=== PATIENT | female | born 1945 | race African-American/Black ===

== ENCOUNTER 2016-03-04 13:44 | Outpatient (CLI) | payer OTHER ==
[2015-11-30 06:05] VITALS: BP 116/50
== END 2016-03-04 13:45 ==
LOC: LAB 13:44
PROVIDERS: ATTEND Family Medicine
DX: E11.9 Type 2 diabetes mellitus without complications (principal)
CPT/HCPCS: 36415; 83036

== ENCOUNTER 2016-04-05 21:31 | Emergency (ER) | payer OTHER ==
--- NOTE | 2016-04-05 22:28 | ED Physician Documentation ---
General Adult - HISTORIAN Historian: patient - HPI Stated Complaint: dizziness, nausea Chief Complaint: General Adult Onset: days ago (1) Timing: still present Severity: moderate Further Comments: yes (Pt is a 71 yo female with c/o dizziness. Pt has hx vertigo and also afib. Pt has had nausea and states that sx occur with head turning. No chest pain, no sob, no abd pain.) - ROS CONST: weakness, other (dizziness) EYES/ENT: none CVS/RESP: none GI/: vomiting, nausea MS/SKIN/LYMPH: none - PAST HX Past History: asthma, A-Fib, CHF, hypertension, other (HLD) Surgeries/Procedures: BTL Allergies/Adverse Reactions: Allergies Allergy/AdvReac Type Severity Reaction Status Date / Time No Known Drug Allergies Allergy Verified 11/29/15 22:09 Home Medications: Ambulatory Orders Medication Instructions Recorded Albuterol Sulfate [Proair HFA] 2 inh IH Q4H PRN #1 hfa.aer.ad 03/26/14 Albuterol Sulfate [Ventolin HFN] 2.5 mg NEB Q2H PRN #25 ampul.neb 11/30/15 Metoprolol Tartrate [Lopressor] 25 mg PO BID #90 u2 11/30/15 Furosemide [Furosemide] 40 mg PO D 04/05/16 Rivaroxaban [Xarelto] 20 mg PO D 04/05/16 - SOCIAL HX Smoking History: non-smoker - FAMILY HX Family History: Yes - VITAL SIGNS Vital Signs: Vital Signs Temp Pulse Resp BP Pulse Ox 116/50 11/30/15 12:25 - REVIEWED ASSESSMENTS Nursing Assessment Reviewed: Yes Vitals Reviewed: Yes Progress - Progress Progress: NS 1 L IVF vomiting x 1 in ER Zofran 4 mg IV Meclizine 25 mg po sx improved Pt has elevated LFT's and amylase c/w pancreatitis but has no complaint of abd pain. Lipase pending. d/w pcp Dr. Crawford. He will see pt in office in am. Rx Meclizine 25 mg po q 8 h prn # 15, plus 2 tablet-->home. - EKG/XRAY/CT EKG: NSR (HR=70; LAD.) XRAY: chest (Obesity and cardiomegaly without change since November 29, 2015) ED Results Lab/Radiology - Orders Orders: ED Orders Category Date Time Status Orthostatics 1T Care 04/05/16 22:[address] Saline Lock/IV NOW Care 04/05/16 22:18 Active CHEST 1 VIEW [RAD] Stat Exams 04/05/16 22:18 Ordered CBC/PLATELET/DIFF Routine Lab 04/05/16 22:18 Ordered CMP Routine Lab 04/05/16 22:18 Ordered CREATINE KINASE Routine Lab 04/05/16 22:18 Ordered NT-proBNP Stat Lab 04/05/16 Ordered TROPONIN I (cTnI) Stat Lab 04/05/16 Ordered 0.9 % Sodium Chloride [Normal Saline] 1,000 ml Med 04/05/16 22:18 Active IV Q2H Chem Sticks Med 04/05/16 22:21 Discontinued 1 each CHEMQ STA EKG WITH COMPARISON Stat Ther 04/05/16 22:18 Ordered General Adult Physical Exam - PHYSICAL EXAM GENERAL APPEARANCE: mild distress EENT: eye inspection normal, ENT inspection normal, pharynx normal NECK: normal inspection, supple RESPIRATORY: no resp distress, chest non-tender, breath sounds normal CVS: reg rate & rhythm, heart sounds normal ABDOMEN: soft, no organomegaly, normal bowel sounds BACK: normal inspection, no CVA tenderness SKIN: warm/dry, normal color EXTREMITIES: non-tender, normal range of motion NEURO: oriented X3, motor nml, sensation nml Discharge Clincal Impression: Dizziness, Elevated Amylase and Liver Enzymes Referrals: Jose Antonio Crawford MD [Primary Care Provider] - 04/06/16 Home Medications: Ambulatory Orders Albuterol Sulfate [Proair HFA] 2 inh IH Q4H PRN #1 hfa.aer.ad 03/26/14 Albuterol Sulfate [Ventolin HFN] 2.5 mg NEB Q2H PRN #25 ampul.neb 11/30/15 Metoprolol Tartrate [Lopressor] 25 mg PO BID #90 u2 11/30/15 Furosemide [Furosemide] 40 mg PO D 04/05/16 Rivaroxaban [Xarelto] 20 mg PO D 04/05/16 Condition: Stable Disposition: 01 HOME, SELF-CARE Decision to Admit: NO Decision Time: 00:23
[2016-04-05] MEDS: 0.9 % SODIUM CHLORIDE 1,000 ML IV ONE (23:02)
[2016-04-05] MEDS ORDERED: ONDANSETRON HCL/PF 4 MG/ 2ML VIAL ONE (23:10)
[2016-04-05] MEDS: ONDANSETRON HCL/PF 4 MG/ 2ML VIAL IVP ONE (23:15)
[2016-04-05 23:18] LABS: BASOPHILS % 0.3 (0.0-1.5); EOSINOPHILS % 2.3 % (0.0-6.8); LYMPHOCYTES # 1.2 # k/uL (0.6-4.0); MEAN CORPUSCULAR HEMOGLOBIN 28.7 pg (28.0-34.0); MONOCYTES # 0.3 # k/uL (0.0-0.9); MONOCYTES % 7.5 % (0.0-11.0); NEUTROPHILS # 2.6 # k/uL (1.4-7.7)
[2016-04-05] MEDS: MECLIZINE HCL 25 MG TABLET PO ONE (23:42)
[2016-04-06] MEDS: MECLIZINE HCL 25 MG TABLET PO ONE ×2 (00:29)
[2016-04-06 03:05] VITALS: BP 100/69
--- NOTE | 2016-04-06 05:49 | Diagnostic Imaging Report ---
Report Submission Date: Apr 05, 2016 10:43:31 PM TURBINE INSPECTOR Patient ~ Study Name: RAUDEL FREED ~ Date: Apr 05, 2016 10:28:22 PM TURBINE INSPECTOR ~ Modality Type: CR Gender: F ~ Description: CHEST : 46 ~ Institution: [facility] Physician: ANA SHAIKH ~ ~ ~ ~ Portable chest History: Dizziness and nausea Findings: Cardiomegaly, obesity, and right hemidiaphragm elevation are observed. The lung bases are incompletely evaluated due to obesity and portable technique. No pleural effusions are observed. Impression: Obesity and cardiomegaly without change since November 29, 2015. ~ Electronically signed on Apr 05, 2016 10:43:31 PM TURBINE INSPECTOR by: Bill GONZALEZ
[2016-04-06 18:11] LABS: LIPASE 150 U/L (13-60)
== END 2016-04-06 00:37 | disposition home or self-care (01) ==
LOC: ED 21:31
DX: R42 Dizziness and giddiness (principal)
CPT/HCPCS: 71010; 80053; 82150; 82550; 83690; 83880; 84484; 85025; 87400; 93005; J2405; J7030; 96374; 99283; 99284; S1016

== ENCOUNTER 2016-04-06 10:44 | Outpatient (CLI) | payer OTHER ==
[2016-04-06 03:05] VITALS: BP 100/69
--- NOTE | 2016-04-06 15:37 | Diagnostic Imaging Report ---
JP CORDERO [facility] [address] [facility] [address] [place] [address]. [id number] Report Submission Date: Apr 06, 2016 3:05:27 PM FLIGHT STEWARD Patient Study Name: RAUDEL FREED Date: Apr 06, 2016 2:35:03 PM FLIGHT STEWARD Modality Type: CT\SR Gender: F Description: CT ABD & PELVIS W/ CON : 46 Institution: [facility] Physician: JP CORDERO CT of the abdomen and pelvis with contrast CLINICAL HISTORY: Abnormal laboratory tests. Elevated amylase and transaminase. Contrast administered: 90 mL of Visipaque. TECHNIQUE: CT examination abdomen and pelvis is performed with oral and intravenous administration of contrast. Sagittal and coronal reconstructions are performed by the technologist. FINDINGS: There is minimal dependent atelectasis in the lung bases. Lung bases are otherwise clear. The liver is diffusely hypodense consistent with hepatic steatosis. There is no focal abnormality in the liver or spleen. Gallbladder is contracted, but otherwise unremarkable. There is no pancreatic or adrenal abnormality. The kidneys demonstrate symmetric enhancement with small left renal cysts. Vascular calcification is present in the abdominal aorta with extension into the major branches. There is no evident aneurysm. There is no retroperitoneal mass or significant adenopathy. The appendix is visualized and is within normal limits. Structures related to the gastrointestinal tract are unremarkable. Uterus is mildly prominent and inhomogeneous likely related to fibroids. There is no free fluid in the pelvis or abdomen. Spondylitic changes are evident in the lumbar vertebrae with degenerative anterolisthesis at L4-5 measuring 7 mm. There is resultant spinal stenosis at the L4-5 level and bilateral neural foraminal stenosis. IMPRESSION: Hepatic steatosis. Bibasilar atelectasis. Lumbar spondylosis with degenerative anterolisthesis at L4-5 and resulting spinal stenosis. Vascular calcification. Small left renal cysts. Inhomogeneous uterus suggesting fibroids. Negative appendix. Electronically signed on Apr 06, 2016 3:05:27 PM FLIGHT STEWARD by: Kaushik GONZALEZ
== END 2016-04-06 10:45 ==
LOC: CARD 10:44
PROVIDERS: ATTEND Internal Medicine Cardiovascular Disease
DX: I48.91 Unspecified atrial fibrillation (principal)
CPT/HCPCS: 74177; A9698; G0463; Q9967

== ENCOUNTER 2016-05-04 14:41 | Outpatient (CLI) | payer OTHER | END 2016-05-04 14:46 | LOC: CARD 14:41 | PROVIDERS: ATTEND Internal Medicine Cardiovascular Disease | DX: I48.91 Unspecified atrial fibrillation (principal) | CPT/HCPCS: G0463 ==

== ENCOUNTER 2016-07-13 10:57 | Outpatient (CLI) | payer OTHER | END 2016-07-13 11:00 | LOC: CARD 10:57 | PROVIDERS: ATTEND Internal Medicine Cardiovascular Disease | DX: I50.9 Heart failure, unspecified (principal) | CPT/HCPCS: G0463 ==

== ENCOUNTER 2016-08-06 15:11 | Outpatient (CLI) | payer OTHER ==
[2016-08-06 15:53] LABS: eGFR (African) > 60; eGFR (Non-African) 40
== END 2016-08-06 15:12 ==
LOC: LAB 15:11
PROVIDERS: ATTEND Family Medicine
DX: E11.9 Type 2 diabetes mellitus without complications (principal); I10 Essential (primary) hypertension
CPT/HCPCS: 36415; 80053; 80061

== ENCOUNTER 2016-10-01 16:11 | Outpatient (CLI) | payer OTHER ==
[2016-10-01 16:21] LABS: BASOPHILS % 0.7 (0.0-1.5); EOSINOPHILS % 6.2 % (0.0-6.8); MEAN CORPUSCULAR HEMOGLOBIN 27.2 pg (28.0-34.0); MEAN CORPUSCULAR VOLUME 90.1 fl (80.0-100.0); MONOCYTES % 6.4 % (0.0-11.0); NEUTROPHILS # 4.5 # k/uL (1.4-7.7)
== END 2016-10-01 16:12 ==
LOC: LAB 16:11
PROVIDERS: ATTEND Family Medicine
DX: E61.1 Iron deficiency (principal)
CPT/HCPCS: 36415; 83540; 85025

== ENCOUNTER 2016-11-15 08:55 | Emergency (ER) | payer OTHER ==
[2016-11-15] MEDS ORDERED: Lidocaine 1% 5ml(IM or SUTURE)(PAIN CLINIC) ONE (09:15)
[2016-11-15] MEDS: DIPH,PERTUSS(ACELL),TET VAC/PF 0.5 ML DISP.SYRIN IM ONE (09:43)
[2016-11-15] MEDS: Lidocaine 1% 5ml(IM or SUTURE)(PAIN CLINIC) IJ ONE (09:43)
--- NOTE | 2016-11-15 10:01 | ED Physician Documentation ---
General Adult - HISTORIAN Historian: patient - HPI Stated Complaint: laceration, L hand Chief Complaint: General Adult Onset: days ago (1) Further Comments: yes (Pt is a 71 yo female with a laceration to the web space between the L thumb and index, which she sustained last night when using a kitchen knife. Pt is on Xarelto and laceration, though small, has not stopped bleeding. Tetanus status unknown.) - ROS CONST: no problems EYES/ENT: none CVS/RESP: none GI/: none MS/SKIN/LYMPH: other (laceration L hand) - PAST HX Past History: other (Afib, CHF, HTN, ) Surgeries/Procedures: BTL, other (breast biopsy) Allergies/Adverse Reactions: Allergies Allergy/AdvReac Type Severity Reaction Status Date / Time No Known Drug Allergies Allergy Verified 11/15/16 09:15 Home Medications: Ambulatory Orders Medication Instructions Recorded Metoprolol Tartrate [Lopressor] 25 mg PO BID #90 u2 11/30/15 Furosemide [Furosemide] 40 mg PO D 04/05/16 - SOCIAL HX Smoking History: non-smoker - FAMILY HX Family History: No - VITAL SIGNS Vital Signs: Vital Signs Temp Pulse Resp BP Pulse Ox 98.4 F 54 L 18 136/58 96 11/15/16 09:00 11/15/16 09:00 11/15/16 09:00 11/15/16 09:00 11/15/16 09:00 - REVIEWED ASSESSMENTS Nursing Assessment Reviewed: Yes Vitals Reviewed: Yes Procedures Wound Location: upper extremity (L hand) Wound Length: 2 cm Wound's Depth, Shape: superficial, flap Wound Explored: clean Betadine Prep?: No (Preston used) Anesthesia: 1% Lidocaine Volume of Anesthetic: 3 cc Wound Debrided: minimal Wound Repaired With: sutures Suture Size/Type: 4:0, nylon Number of Sutures: 3 Layer Closure?: No Sterile Dressing Applied?: Yes Progress - Progress Progress: Tdap 0.5 ml in ER. Suture removal in 5 to 7 days. ED Results Lab/Radiology - Orders Orders: ED Orders Category Date Time Status Diph,Pertuss(Acell),Tet Vac/Pf [Adacel] Med 11/15/16 09:26 Discontinued 0.5 ml IM .ONCE ONE Lidocaine 1% 5ml(IM or SUTURE) [Xylocaine] Med 11/15/16 09:15 Discontinued 50 mg .ROUTE .STK-MED ONE Lidocaine 1% 5ml(IM or SUTURE) [Xylocaine] Med 11/15/16 09:26 Discontinued 50 mg IJ NOW ONE General Adult Physical Exam - PHYSICAL EXAM GENERAL APPEARANCE: no distress NECK: normal inspection, supple RESPIRATORY: no resp distress BACK: normal inspection SKIN: other (superficial laceration L hand in web space between thumb and index , flap, oozing blood.) EXTREMITIES: other (superficial laceration L hand in web space between thumb and index, flap, oozing blood.) NEURO: oriented X3, motor nml, sensation nml Discharge Clincal Impression: laceration, L hand Referrals: Jose Antonio Crawford MD [Primary Care Provider] - Condition: Good Disposition: 01 HOME, SELF-CARE Decision to Admit: NO Decision Time: 10:02
[2016-11-15 10:15] VITALS: BP 116/50
== END 2016-11-15 10:13 | disposition home or self-care (01) ==
LOC: ED 08:55
DX: S61.412A Laceration without foreign body of left hand, initial encounter (principal); X58.XXXA Exposure to other specified factors, initial encounter; Y93.9 Activity, unspecified; Y99.9 Unspecified external cause status
CPT/HCPCS: 12001; 90471; 90715; 99283

== ENCOUNTER 2016-11-16 13:50 | Outpatient (CLI) | payer OTHER ==
[2016-11-15 10:15] VITALS: BP 116/50
[2016-11-16 16:35] LABS: eGFR (African) > 60; eGFR (Non-African) > 60
== END 2016-11-16 13:52 ==
LOC: CARD 13:50
PROVIDERS: ATTEND Internal Medicine Cardiovascular Disease
DX: I48.91 Unspecified atrial fibrillation (principal); I50.9 Heart failure, unspecified; I10 Essential (primary) hypertension; E78.5 Hyperlipidemia, unspecified; G47.30 Sleep apnea, unspecified
CPT/HCPCS: 36415; 80048; G0463

== ENCOUNTER 2017-01-11 12:56 | Outpatient (CLI) | payer OTHER ==
[2017-01-11 14:52] LABS: eGFR (African) > 60; eGFR (Non-African) 40
== END 2017-01-11 14:58 ==
LOC: CARD 12:56
PROVIDERS: ATTEND Internal Medicine Cardiovascular Disease
DX: E78.5 Hyperlipidemia, unspecified (principal); E11.9 Type 2 diabetes mellitus without complications; E66.9 Obesity, unspecified; G47.30 Sleep apnea, unspecified; Z86.79 Personal history of other diseases of the circulatory system
CPT/HCPCS: 36415; 80048; 80061; G0463

== ENCOUNTER 2017-03-17 03:33 | Emergency (ER) | payer OTHER ==
[2017-03-17] MEDS ORDERED: OXYMETAZOLINE HCL 0.05% NASAL SPRAY NS ONE ×2 (03:52)
--- NOTE | 2017-03-17 04:51 | ED Physician Documentation ---
Epistaxis - HISTORIAN Historian: patient - HPI Stated Complaint: Nose bleed Chief Complaint: Epistaxis Location: right Severity: moderate Further Comments: yes (72 year old female patient presents with complaint of nose bleed. Patient states she woke up covered in blood and coughed up a "chunk " of blood. Patient on xarelto) - ROS MS/SKIN/LYMPH: denies: excessive bruising, bleeding from gums, bleeding from GI , bleeding from , swollen glands, joint pain, other EYES/ENT: none GI/: denies: black stool, problems urinating, other CVS/RESP: denies: chest pain, difficulty breathing, other NEURO/PSYCH: denies: dizziness, anxiety, depression, other - PAST HX Past History: previous nosebleeds Other History: hypertension Allergies/Adverse Reactions: Allergies Allergy/AdvReac Type Severity Reaction Status Date / Time No Known Drug Allergies Allergy Verified 03/17/17 03:49 Home Medications: Ambulatory Orders Medication Instructions Recorded Metoprolol Tartrate [Lopressor] 25 mg PO BID #90 u2 11/30/15 - SOCIAL HX Smoking History: non-smoker - FAMILY HX Family History: No - VITAL SIGNS Vital Signs: Vital Signs Temp Pulse Resp BP Pulse Ox 97.9 F 64 18 133/65 96 03/17/17 03:35 03/17/17 03:35 03/17/17 03:35 03/17/17 03:35 03/17/17 03:35 - REVIEWED ASSESSMENTS Nursing Assessment Reviewed: Yes Vitals Reviewed: Yes Progress - Progress Progress: 2 sprays of afrin to right nare. Pressure held. WIll monitor in ER. Patient does not want rhino rocket. No further bleeding while in ER, discharged home. ED Results Lab/Radiology - Orders Orders: ED Orders Category Date Time Status Oxymetazoline HCl [Afrin 0.05%] Med 03/17/17 03:52 Discontinued 2 spray NS NOW ONE Oxymetazoline HCl [Afrin 0.05%] Med 03/17/17 03:52 Discontinued 30 spray NS .STK-MED ONE Epistaxis Physical Exam - EXAM General Appearance: mild distress Nose: active bleeding (R) (mild) Eyes/Ears: eyes nml inspection, PERRL Mouth: lips nml, gums nml, pharynx nml Neuro/Psych: oriented x3, neuro intact, mood/affect nml, CN's nml as tested Respiratory: no resp distress, chest non-tender CVS: reg rate & rhythm Abdomen: non-tender, no organomegaly Skin: nml color, no skin rash Discharge Clincal Impression: Epistaxis Referrals: Jose Antonio Crawford MD [Primary Care Provider] - 2 Days Condition: Stable Disposition: 01 HOME, SELF-CARE Decision to Admit: NO Decision Time: 04:50
[2017-03-17 05:08] VITALS: BP 135/72
== END 2017-03-17 05:00 | disposition home or self-care (01) ==
LOC: ED 03:33
DX: R04.0 Epistaxis (principal)
CPT/HCPCS: 99282

== ENCOUNTER 2017-03-17 13:16 | Observation (INO) | payer OTHER ==
--- NOTE | 2017-03-17 14:08 | ED Physician Documentation ---
General Adult - HISTORIAN Historian: patient - HPI Stated Complaint: weakness Chief Complaint: General Adult Onset: hours Timing: still present Severity: moderate Further Comments: yes (Pt is a 72 yo female with weakness. Pt was seen here about 10 hrs ago for nosebleed. Pt says that she is very weak. She says that she lost quite a bit of blood with her nosebleed this am and coughed up a large clot. Pt is not a good historian and insists that she just feels very weak. She denies specific sx, sob, chest pain, nausa.) - ROS CONST: weakness, other (malaise) EYES/ENT: none GI/: none MS/SKIN/LYMPH: none - PAST HX Past History: hypertension, other (Asthma, OA) Surgeries/Procedures: BTL Allergies/Adverse Reactions: Allergies Allergy/AdvReac Type Severity Reaction Status Date / Time No Known Drug Allergies Allergy Verified 03/17/17 03:49 Home Medications: Ambulatory Orders Medication Instructions Recorded Metoprolol Tartrate [Lopressor] 25 mg PO BID #90 u2 11/30/15 - SOCIAL HX Smoking History: non-smoker - FAMILY HX Family History: No - VITAL SIGNS Vital Signs: Vital Signs Temp Pulse Resp BP Pulse Ox 135/72 03/17/17 05:00 - REVIEWED ASSESSMENTS Nursing Assessment Reviewed: Yes Vitals Reviewed: Yes Progress - Progress Progress: CXR: Generalized parenchymal haziness with obscuration of the left lung base - component of this may be due to body habitus though infiltrate/effusion cannot be excluded. CT chest w/o contrast: Bibasilar lung base parenchymal infiltrates, right greater than left. Posterior pleural thickening. Generalized increased parenchymal interstitial prominence. Granuloma right middle lung. Anterior mediastinum and julio cesar are without gross mass or pathologic adenopathy: though sensitivity is reduced on a noncontrast exam. Calcified hilar granuloma. Thoracic aorta demonstrates peripheral atherosclerotic disease. No aneurysm. Cardiac silhouette enlarged. No pericardial effusion. Coronary vascular calcifications. Lower neck structures and upper abdominal organs are without gross abnormality. Hiatal hernia. Osseous structures demonstrate degenerative spurring. Atherosclerotic disease involving the abdominal aorta - specifically of the renal artery origins. Impression: Bibasilar infiltrates associated with generalized increase in interstitial prominence suggesting congestive edema. Levaquin 500 mg IV in ER Lasix 20 mg IV in ER Admit to Dr. Francisco. - EKG/XRAY/CT EKG: NSR (HR=62; PAC's; low voltage.) General Adult Physical Exam - PHYSICAL EXAM GENERAL APPEARANCE: moderate distress EENT: pharynx normal NECK: normal inspection, supple RESPIRATORY: rales CVS: reg rate & rhythm, heart sounds normal ABDOMEN: soft, no organomegaly, normal bowel sounds BACK: normal inspection, no CVA tenderness SKIN: warm/dry, normal color EXTREMITIES: non-tender, normal range of motion, edema (trace) NEURO: oriented X3, motor nml, sensation nml Discharge Clincal Impression: bibasilar infiltrates, CHF Referrals: Jose Antonio Crawford MD [Primary Care Provider] - Condition: Stable Disposition: 09 ADMITTED INPATIENT Decision to Admit: [id number] Decision Time: 19:24
[2017-03-17 14:38] LABS: BASOPHILS % 0.4 (0.0-1.5); EOSINOPHILS % 3.2 % (0.0-6.8); MEAN CORPUSCULAR HEMOGLOBIN 29.8 pg (28.0-34.0); MEAN CORPUSCULAR VOLUME 96.5 fl (80.0-100.0); MONOCYTES % 7.2 % (0.0-11.0); NEUTROPHILS # 3.3 # k/uL (1.4-7.7)
[2017-03-17 14:46] LABS: eGFR (African) > 60; eGFR (Non-African) > 60
--- NOTE | 2017-03-17 14:58 | Diagnostic Imaging Report ---
HAWA PEREZ [facility] [address] [facility] [address] [place] [address]. [id number] Report Submission Date: Mar 17, 2017 2:52:22 PM SITE CONTROLLER Patient Study Name: RAUDEL FREED Date: Mar 17, 2017 2:38:16 PM SITE CONTROLLER Modality Type: CR Gender: F Description: CHEST : 46 Institution: [facility] Physician: HAWA PEREZ Examination: Portable chest History: Evaluate lungs Comparison exam: 05 April 2016 Findings: Single view of the chest demonstrates a prominent cardiac and mediastinal silhouette. Lung cisneros demonstrate generalized haziness. Retrocardiac region not well visualized. Osseous structures are appropriate for age. Impression: Generalized parenchymal haziness with obscuration of the left lung base - component of this may be due to body habitus though infiltrate/effusion cannot be excluded. Electronically signed on Mar 17, 2017 2:52:22 PM SITE CONTROLLER by: Galileo GONZALEZ
[2017-03-17 15:56] LABS: APPEARANCE,URINE Clear (CLEAR); COLOR,URINE Yellow (YELLOW); OCCULT BLOOD,URINE Negative (NEGATIVE); PH URINE 5.5 (5.0 - 8.0); UROBILINOGEN URINE 0.2 Eu (0.2-1.0)
[2017-03-17] MEDS ORDERED: 0.9 % SODIUM CHLORIDE 1,000 ML IV ONE (16:23)
[2017-03-17] MEDS ORDERED: DIAZEPAM 5 MG TABLET PO ONE (17:00)
--- NOTE | 2017-03-17 18:36 | Diagnostic Imaging Report ---
HAWA PEREZ~ [facility] [address] [facility] [address] [place], [place]. [address] ~ ~ ~ ~ Report Submission Date: Mar 17, 2017 6:13:10 PM DRAG DOWN Patient ~ Study Name: RAUDEL FREED ~ Date: Mar 17, 2017 5:37:37 PM DRAG DOWN ~ Modality Type: CT\SR Gender: F ~ Description: CT CHEST W/O CONTRAST : 46 ~ Institution: [facility] Physician: HAWA PEREZ ~ ~ ~ Examination: CT chest History: Lung infiltrate Comparison exams: Plain film chest dated 17 March 2017 Technique: CT chest without contrast protocol~~ Findings: Bibasilar lung base parenchymal infiltrates, right greater than left. Posterior pleural thickening. ~Generalized increased parenchymal interstitial prominence. Granuloma right middle lung. ~Anterior mediastinum and julio cesar are without gross mass or pathologic adenopathy: though sensitivity is reduced on a noncontrast exam. Calcified hilar granuloma. Thoracic aorta demonstrates peripheral atherosclerotic disease. No aneurysm. Cardiac silhouette enlarged. No pericardial effusion. Coronary vascular calcifications. Lower neck structures and upper abdominal organs are without gross abnormality. Hiatal hernia. Osseous structures demonstrate degenerative spurring. Atherosclerotic disease involving the abdominal aorta - specifically of the renal artery origins. Impression: Bibasilar infiltrates associated with generalized increase in interstitial prominence suggesting congestive edema. Cardiomegaly. Hiatal hernia. Atherosclerotic disease involving the abdominal aorta - specifically of the renal artery origins. ~ Electronically signed on Mar 17, 2017 6:13:10 PM DRAG DOWN by: Galileo GONZALEZ
[2017-03-17] MEDS ORDERED: LEVOFLOXACIN 500MG/D5W 100ML 500 MG in PREMIX BAG 1 BAG IV ONE (19:16)
[2017-03-17] MEDS ORDERED: IPRATROPIUM/ALBUTEROL SULFATE 3 ML AMPUL.NEB NEB PRN (19:17)
[2017-03-17] MEDS ORDERED: METOPROLOL SUCCINATE 50 MG TAB.ER.24H PO ONE (19:17)
[2017-03-17] MEDS ORDERED: FUROSEMIDE 20 MG/2 ML VIAL IVP ONE (19:17)
[2017-03-17] MEDS ORDERED: LEVOFLOXACIN 500MG/D5W 100ML 100 ML IV ONE (19:20)
[2017-03-17] MEDS ORDERED: FUROSEMIDE 40 MG/4 ML VIAL IVP SCH (20:00)
[2017-03-17] MEDS ORDERED: AZITHROMYCIN 500 MG in 0.9 % SODIUM CHLORIDE 250 ML IV SCH (20:00)
[2017-03-17] MEDS ORDERED: AZITHROMYCIN 500 MG VIAL IV ONE (20:55)
[2017-03-17] MEDS ORDERED: 0.9 % SODIUM CHLORIDE 250 ML IV ONE (20:55)
[2017-03-17 20:57] VITALS: BMI 39.6
[2017-03-17] MEDS: RIVAROXABAN 10 MG TABLET PO SCH ×2 (21:00→21:48)
[2017-03-17] MEDS ORDERED: SALINE FLUSH 10 ML DISP.SYRIN IVF ONE (21:12)
--- NOTE | 2017-03-17 21:26 | History and Physical Report ---
History of Present Illnes - History of Present Illness Reason for Visit: dyspnea History of Present Illness: 72-year-old -[place] female who stated she is not been doing well for the last 7 to 10 days. Patient has developed a slight cough that been productive of some clear to slightly yellow phlegm. Patient data the time she's been having some slight hemoptysis associated with it. Patient denies any fever or chills. Patient was seen in the ED earlier today for epistaxis. Patient returned to the ED complaining of weakness. Patient denies any chest pain or chest pressure. Patient denies any orthotic symptoms. Patient states she has been getting mildly short of breath with exertion. Patient was evaluated in the ED was felt to have congestive heart failure and bilateral Basler pneumonia. Patient was subsequently admitted to the hospital for further care and evaluation. - Past Medical History Cardiac: HTN Pulmonary: Asthma Musculoskeletal: Osteoarthritis ENT: Allergic rhinitis - Past Surgical History Past Surgical History: Tubal Ligation - Past Family History daughter Family History: Cancer (breast), - Past Social History Smoke: No Occupation: retired hairdresser Alcohol: None Drugs: None Lives: Alone Domestic Violence: Negative - Health Maintenance Health Maintenance: Pneumococcal Vaccine Influenza Vaccine: Current for this Influenza Season Pneumonia Vaccine: No Resuscitation Status: Full code - Unable to Obtain History Unable to Obtain: No Review of Systems - Review of Systems Constitutional: Weakness. negative: Fever, Chills, Sweats Eyes: negative: pain ENT: Other (Epistaxis). negative: Ear Pain, Ear Discharge, Nose Pain, Nose Discharge, Nose Congestion, Mouth Swelling, Throat Pain Respiratory: Cough, Shortness of Breath, Hemoptysis, SOB with Excertion Cardiovascular: Light Headedness. negative: Chest Pain, Palpitations, Orthopnea Gastrointestinal: Diarrhea. negative: Nausea, Vomiting, Abdominal Pain, Constipation, Hematochezia Genitourinary: negative: Dysuria, Frequency Musculoskeletal: negative: Back Pain Skin: negative: Rash Neurological: Weakness. negative: Numbness, Incoordination, Change in Speech, Confusion - Medications/Allergies Allergies/Adverse Reactions: Allergies Allergy/AdvReac Type Severity Reaction Status Date / Time No Known Drug Allergies Allergy Verified 03/17/17 03:49 Current Inpatient Medications: Current Inpatient Medications Albuterol/Ipratropium (Duoneb) 3 ml NEB Q4 PRN PRN Reason: Wheezing Ferrous Sulfate (Feosol) 325 mg PO [id number] [facility] Furosemide (Lasix) 40 mg IVP QD [facility] Last Admin: 03/17/17 20:53 Dose: Not Given Azithromycin 500 mg/ Sodium (Chloride) 250 mls @ 125 mls/hr IV Q24H [facility] Stop: 03/27/17 19:59 Levofloxacin/Dextrose 500 mg/ (PREMIX BAG) 100 mls @ 100 mls/hr IV DAILY [facility] Potassium Chloride (Klor-Con 10) 10 meq PO BID [facility] Rivaroxaban (Xarelto) 20 mg PO HS [facility] Fluticasone/Salmeterol (Advair 500-50 Diskus) 1 puff IH DAILY [facility] Exam - Exam Vital Signs: Vital Signs (72 hours) 03/17/17 03/17/17 03/17/17 20:00 20:25 20:35 Temperature 97.7 F Pulse Rate [ 77 Left] Pulse Rate [ 67 Pulse ox] Respiratory 18 18 Rate Blood Pressure 171/106 [Left Arm] Blood Pressure 136/72 [Right Arm] O2 Sat by Pulse 97 97 98 Oximetry 03/17/17 20:37 Temperature 97.9 F Pulse Rate [ 77 Left] Pulse Rate [ Pulse ox] Respiratory 18 Rate Blood Pressure 171/106 [Left Arm] Blood Pressure [Right Arm] O2 Sat by Pulse 98 Oximetry General: Alert, Oriented to Person, Oriented to Place, Oriented to Time, Cooperative HEENT: Atraumatic, PERRLA, EOMI, Mouth Mucous membr. moist/[place], Nose Mucous membr. moist/[place] Neck: Normal Range of Motion Lungs: Clear to auscultation, Normal air movement, Speaks full Sentences Cardiovascular: Regular rate, Normal S1, Normal S2, No murmurs Abdomen: Normal bowel sounds, Soft, No tenderness, No hepatospenomegaly, No masses Integumentary: Normal, [place], Warm, Dry Extremities: No clubbing, No cyanosis, No edema, Normal pulses, No tenderness/ swelling Neurological: Normal gait, Normal speech, Strength Equal Bilat, Normal tone, Sensation intact, Cranial nerves 3-12 NL, Reflexes 2+ Psych/Mental Status: Mental status NL, Mood NL, Appropriate Affect, Intact Judgment Assessment/Plan - Assessment/Plan (1) CHF (congestive heart failure) Status: Acute Current Visit: Yes (2) Bilateral pneumonia Status: Acute Current Visit: Yes (3) Atrial fibrillation Status: Acute Current Visit: No Qualifiers: Atrial fibrillation type: unspecified Qualified Code(s): I48.91 - Unspecified atrial fibrillation VTE Assessment - RISK FACTOR SCORE VTE RISK FACTOR SCORES: AGE OVER 60 YEARS, ANTICIPATED BED CONFINEMENT OR IMMOBILIZATION > 24 HOURS, CONGESTIVE HEART FAILURE OR MYOCARDIAL INFARCTION - RISK VTE HIGH RISK: SCORE OF 3-4 (RISK PROXIMAL DVT 4-8%) PROPHYLAXIS NEEDED (on Eliquis)
[2017-03-18] MEDS ORDERED: LEVOFLOXACIN 500MG/D5W 100ML 100 ML IV ONE ×2 (00:26→08:43)
[2017-03-18 06:36] LABS: BASOPHILS % 0.3 (0.0-1.5); EOSINOPHILS % 3.3 % (0.0-6.8); MEAN CORPUSCULAR HEMOGLOBIN 29.8 pg (28.0-34.0); MONOCYTES % 6.3 % (0.0-11.0); NEUTROPHILS # 2.6 # k/uL (1.4-7.7)
[2017-03-18 06:55] LABS: eGFR (African) > 60; eGFR (Non-African) > 60
[2017-03-18] MEDS ORDERED: SALINE FLUSH 10 ML DISP.SYRIN IVF ONE ×2 (08:43→12:37)
[2017-03-18] MEDS ORDERED: LEVOFLOXACIN 500MG/D5W 100ML 500 MG in PREMIX BAG 1 BAG IV SCH (09:00)
[2017-03-18] MEDS ORDERED: POTASSIUM CHLORIDE 10 MEQ TABLET.ER PO SCH (09:00)
[2017-03-18] MEDS ORDERED: FLUTICASONE/SALMETEROL 500-50 INHALER IH SCH (09:00)
[2017-03-18] MEDS ORDERED: FERROUS SULFATE 325 MG TABLET PO SCH (11:00)
[2017-03-18 14:31] VITALS: BP 138/80
--- NOTE | 2017-03-18 15:18 | Discharge Summary ---
DATE OF ADMISSION: March 17, 2017 DATE OF DISCHARGE: March 18, 2017 DIAGNOSES ON THIS HOSPITALIZATION: 1. Epistaxis. 2. Bibasilar pneumonia. 3. Shortness of breath. 4. Congestive heart failure. 5. Atrial fibrillation. SUMMARIZATION OF ADMISSION HISTORY AND PHYSICAL: This is a 72-year-old female who presented after saying she had not been doing very well for about the last 7 to 10 days. She had actually seen Debra in the office and had been started on azithromycin but had not really gotten a whole lot better. She came in because of having some epistaxis but was also very short of breath. She had a chest x-ray done which showed bibasilar infiltrates. She initially was on 2 liters of oxygen; however, she was able to be weaned down to room air. She was discharged to home then with continuation of all of her regular medications. I did put her on cefuroxime 250 mg b.i.d. x7 days, as well as a Z-Pack. Prescriptions were both sent out to [facility]. CONDITION ON DISCHARGE: She is discharged to home in improved condition. LISA
== END 2017-03-18 14:50 | disposition home or self-care (01) ==
LOC: ED 13:16 → SOUTH 19:49
PROVIDERS: ADMIT Family Medicine; ATTEND Family Medicine
DX: I50.9 Heart failure, unspecified (principal); J18.8 Other pneumonia, unspecified organism; I48.91 Unspecified atrial fibrillation; R04.0 Epistaxis
CPT/HCPCS: 36415; 71010; 71250; 80053; 81002; 82550; 83880; 84484; 85025; 93005; G0378; J0456; J1940; J1956; J7030; J7050; 94640; 96365; 96366; 96367; 96375; 99217; 99219; 99283; S1016

== ENCOUNTER 2017-04-29 13:57 | Outpatient (CLI) | payer OTHER ==
--- NOTE | 2017-04-29 19:05 | Diagnostic Imaging Report ---
JP CORDERO [facility] [address] [facility] [address] [address] Report Submission Date: Apr 29, 2017 2:39:26 PM BRIDAL GOWN FITTER Patient Study Name: RAUDEL FREED Date: Apr 29, 2017 2:05:06 PM BRIDAL GOWN FITTER Modality Type: DX Gender: F Description: SPINE : 47 Institution: [facility] Physician: JP CORDERO Examination: Plain film lumbar spine History: L-SPINE, CHRONIC LOW BACK PAIN, WORSENING IN THE LAST TWO WEEKS, NO KNOWN INJURY (Hx) Findings: 5 views of the lumbar spine demonstrates diffuse osteopenia. L4/L5 listhesis. Likely L4/L5 pars defect. No anterior compression. Atherosclerotic disease involving the abdominal aorta and iliac vessels. Impression: Osteopenia, degenerative changes and listhesis. No compression deformity. If patient is experiencing neurologic symptoms, consider obtaining MRI to further evaluate. Electronically signed on Apr 29, 2017 2:39:26 PM BRIDAL GOWN FITTER by: Galileo GONZALEZ
== END 2017-04-29 14:00 ==
LOC: RAD 13:57
PROVIDERS: ATTEND Family Medicine
DX: M54.5 Low back pain (principal)
CPT/HCPCS: 72110

== ENCOUNTER 2017-05-12 09:54 | Emergency (ER) | payer OTHER ==
[2017-05-12 11:43] LABS: APPEARANCE,URINE CLEAR (CLEAR); COLOR,URINE AMBER (YELLOW); OCCULT BLOOD,URINE 1+ (NEGATIVE)
[2017-05-12 11:50] LABS: BASOPHILS % 0.2 (0.0-1.5); EOSINOPHILS % 0.2 % (0.0-6.8); MEAN CORPUSCULAR VOLUME 96.8 fl (80.0-100.0); MONOCYTES % 2.5 % (0.0-11.0); NEUTROPHILS # 6.8 # k/uL (1.4-7.7)
[2017-05-12 12:27] LABS: eGFR (African) > 60; eGFR (Non-African) 43
[2017-05-12] MEDS: 0.9 % SODIUM CHLORIDE 500 ML IV ONE (12:42)
--- NOTE | 2017-05-12 12:55 | ED Physician Documentation ---
General Adult - HISTORIAN Historian: patient - HPI Stated Complaint: Weakness/pain to Lt side of neck Chief Complaint: General Adult Onset: hours Timing: worse Further Comments: yes (72 year old female patient presents with complaints of generalized weakness, fatigue, nausea, and urinary frequency.) - ROS CONST: weakness, chills. denies: fever, sweating, recent illness EYES/ENT: none CVS/RESP: none GI/: problems urinating, nausea. denies: abdominal pain, vomiting, diarrhea MS/SKIN/LYMPH: back pain (related to physical therapy) NEURO/PSYCH: denies: headache, fainting, dizziness, tingling, numbness, difficulty walking, difficulty with speech, anxiety, depression, other - PAST HX Past History: A-Fib, hypertension Other History: other (asthma, OA, sciatica) Allergies/Adverse Reactions: Allergies Allergy/AdvReac Type Severity Reaction Status Date / Time No Known Drug Allergies Allergy Verified 03/17/17 03:49 Home Medications: Ambulatory Orders Medication Instructions Recorded Metoprolol Tartrate [Lopressor] 25 mg PO BID #90 u2 11/30/15 Ciprofloxacin HCl [Cipro] 500 mg PO BID #14 tablet 05/12/17 - SOCIAL HX Smoking History: non-smoker - FAMILY HX Family History: No - VITAL SIGNS Vital Signs: Vital Signs Temp Pulse Resp BP Pulse Ox 98.4 F 76 16 96/39 89 L 05/12/17 09:55 05/12/17 12:30 05/12/17 09:55 05/12/17 09:55 05/12/17 12:30 - REVIEWED ASSESSMENTS Nursing Assessment Reviewed: Yes Vitals Reviewed: Yes Progress - Progress Progress: Labs reviewed - will give 500cc bolus and 1G rocephin. Neut 91% likely due to UTI, urine + for nitrates. CrCL 57 Reviewed discharge instructions with patient; verbalized understanding. Questions answered - EKG/XRAY/CT EKG: rhythm (Afib, rate 88) ED Results Lab/Radiology - Lab Results Lab Results: Lab Results 05/12/17 05/12/17 05/12/17 11:15 11:15 10:36 WBC RBC Hgb Hct MCV MCH MCHC RDW Plt Count Neut % (Auto) Lymph % (Auto) [place] % (Auto) Eos % (Auto) Baso % (Auto) Neut # (Auto) Lymph # (Auto) [place] # (Auto) Eos # (Auto) Baso # (Auto) Reactive Lymphs % Reactive Lymphs # Sodium 141 mmol/L mmol/L (136-145) Potassium 3.4 mmol/L L mmol/L (3.5-5.1) Chloride 102 mmol/L mmol/L (98-107) Carbon Dioxide 29 mmol/L mmol/L (22-30) BUN 36 mg/dL H mg/dL (7-17) Creatinine 1.30 mg/dL H mg/dL (0.52-1.04) Estimated Creat Clear 68 Est GFR ( Amer) > 60 (60 - ) Est GFR (Non-Af Amer) 43 L (60 - ) Glucose 113 mg/dL H mg/dL (74-106) Calcium 9.4 mg/dL mg/dL (8.4-10.2) Total Bilirubin 1.6 mg/dL H mg/dL (0.2-1.3) AST 44 U/L U/L (15-46) ALT 43 U/L U/L (13-69) Alkaline Phosphatase 73 U/L U/L (38-126) Total Protein 5.7 g/dL L g/dL (6.3-8.2) Albumin 2.8 g/dL L g/dL (3.5-5.0) Urine Color Nisha (YELLOW) Urine Appearance Clear (CLEAR) Urine pH 5.0 (5.0 - 8.0) Ur Specific [place] >=1.030 H (1.010-1.030) Urine Protein 1+ mg/dL H mg/dL (NEGATIVE) Urine Ketones Trace mg/dL H mg/dL (NEGATIVE) Urine Occult Blood 1+ H (NEGATIVE) Urine Nitrite Positive H (NEGATIVE) Urine Bilirubin 2+ H (NEGATIVE) Urine Urobilinogen 1.0 Eu Eu (0.2-1.0) Ur Leukocyte Esterase Negative (NEGATIVE) Urine Glucose Negative mg/dL mg/dL (NEGATIVE) Influenza A (Rapid) Negative (NEGATIVE) Influenza B (Rapid) Negative (NEGATIVE) 05/12/17 10:36 WBC 7.40 K/ul K/ul (4.00-12.00) RBC 4.10 M/ul M/ul (3.90-5.20) Hgb 12.3 g/dL g/dL (12.0-16.0) Hct 39.7 % % (34.5-46.5) MCV 96.8 fl fl (80.0-100.0) MCH 30.0 pg pg (28.0-34.0) MCHC 31.0 g/dL g/dL (30.0-36.0) RDW 14.3 % % (11.3-14.3) Plt Count 90 K/mm3 L K/mm3 (130-400) Neut % (Auto) 91.3 % H % (39.0-79.0) Lymph % (Auto) 4.9 % L % (16.0-50.0) [place] % (Auto) 2.5 % % (0.0-11.0) Eos % (Auto) 0.2 % % (0.0-6.8) Baso % (Auto) 0.2 (0.0-1.5) Neut # (Auto) 6.8 # k/uL # k/uL (1.4-7.7) Lymph # (Auto) 0.4 # k/uL L # k/uL (0.6-4.0) [place] # (Auto) 0.2 # k/uL # k/uL (0.0-0.9) Eos # (Auto) 0.0 # k/uL # k/uL (0.0-0.6) Baso # (Auto) 0.0 # k/uL # k/uL (0.0-0.5) Reactive Lymphs % 0.9 % % (0.0-5.0) Reactive Lymphs # 0.1 # k/uL # k/uL (0.0-0.8) Sodium Potassium Chloride Carbon Dioxide BUN Creatinine Estimated Creat Clear Est GFR ( Amer) Est GFR (Non-Af Amer) Glucose Calcium Total Bilirubin AST ALT Alkaline Phosphatase Total Protein Albumin Urine Color Urine Appearance Urine pH Ur Specific [place] Urine Protein Urine Ketones Urine Occult Blood Urine Nitrite Urine Bilirubin Urine Urobilinogen Ur Leukocyte Esterase Urine Glucose Influenza A (Rapid) Influenza B (Rapid) - Radiology Radiology Impressions: PA and lateral chest CLINICAL HISTORY: Chest pain today. Weakness. FINDINGS: Examination of the chest in PA and lateral views demonstrates lungs to be free of coalescent infiltrate. Cardiac silhouette is prominent and the aorta is atherosclerotic. Degenerative changes are seen throughout the thoracic vertebrae. IMPRESSION: Aortic atherosclerosis and mild cardiomegaly. No active disease. Electronically signed on May 12, 2017 1:29:59 PM CDT by: Kaushik Melendez - Orders Orders: ED Orders Category Date Time Status Continuous EKG monitoring Q30M Care 05/12/17 10:36 Active Continuous Pulse Oximetry Q30M Care 05/12/17 10:[address] IV Lock 1T Care 05/12/17 10:36 Active CHEST 2VIEW [RAD] Stat Exams 05/12/17 11:54 Ordered CBC/PLATELET/DIFF Stat Lab 05/12/17 10:36 Completed CMP Stat Lab 05/12/17 10:36 Completed INFLUENZA A&B Stat Lab 05/12/17 11:15 Completed UA MACRO DIP ONLY Stat Lab 05/12/17 11:15 Completed URINE CULTURE Stat Lab 05/12/17 11:15 Received 0.9 % Sodium Chloride [Normal Saline] 500 ml Med 05/12/17 12:31 Active IV NOW EKG WITH COMPARISON Stat Ther 05/12/17 10:36 Ordered General Adult Physical Exam - PHYSICAL EXAM GENERAL APPEARANCE: mild distress EENT: eye inspection normal, ENT inspection normal, pharynx normal, no signs of dehydration, BOLA, no nystagmus, TM's nml RESPIRATORY: no resp distress, chest non-tender, breath sounds normal CVS: reg rate & rhythm, heart sounds normal, equal pulses, no murmur, no gallop , PMI nml, no JVD, no friction rub, 24 ABDOMEN: soft, no organomegaly, normal bowel sounds, no abdominal bruit, no distension SKIN: normal color, warm/dry, NR, INT, PAL, DR EXTREMITIES: non-tender, normal range of motion, no evidence of injury, no edema , J, CELL STRIPPER NEURO: oriented X3, CN's nml as tested, motor nml, sensation nml, mood/affect nml Discharge Clincal Impression: UTI (urinary tract infection) Qualifiers: Urinary tract infection type: acute cystitis Hematuria presence: with hematuria Qualified Code(s): N30.01 - Acute cystitis with hematuria Prescriptions: Ciprofloxacin HCl [Cipro] 500 mg PO BID #14 tablet Referrals: Jose Antonio Crawford MD [Primary Care Provider] - 2 Days Condition: Stable Decision to Admit: NO Decision Time: 13:41
[2017-05-12 14:28] VITALS: BP 104/49
--- NOTE | 2017-05-12 18:04 | Diagnostic Imaging Report ---
FIDE FONTANA (OUTPATIENT INTERVIEWING CLERK) - ER [facility] [address] [address] Report Submission Date: May 12, 2017 1:29:59 PM CDT Patient Study Name: RAUDEL FREED Date: May 12, 2017 12:11:28 PM CDT Modality Type: DX Gender: F Description: CHEST : 47 Institution: [facility] Physician: FIDE FONTANA (OUTPATIENT INTERVIEWING CLERK) - ER PA and lateral chest CLINICAL HISTORY: Chest pain today. Weakness. FINDINGS: Examination of the chest in PA and lateral views demonstrates lungs to be free of coalescent infiltrate. Cardiac silhouette is prominent and the aorta is atherosclerotic. Degenerative changes are seen throughout the thoracic vertebrae. IMPRESSION: Aortic atherosclerosis and mild cardiomegaly. No active disease. Electronically signed on May 12, 2017 1:29:59 PM CDT by: Kaushik GONZALEZ
== END 2017-05-12 14:16 | disposition home or self-care (01) ==
LOC: ED 09:54
DX: I48.91 Unspecified atrial fibrillation (principal); I10 Essential (primary) hypertension
CPT/HCPCS: 71046; 80053; 81002; 85025; 87086; 87400; 93005; J0696; J7060; 96365; 96375; 99282; 99283; S1016

== ENCOUNTER 2017-05-24 10:45 | Outpatient (CLI) | payer OTHER ==
--- NOTE | 2017-05-24 12:09 | Diagnostic Imaging Report ---
JP CORDERO [facility] [address] [facility] [address] [address] Report Submission Date: May 24, 2017 11:24:10 AM CDT Patient Study Name: RAUDEL FREED Date: May 24, 2017 10:57:29 AM CDT Modality Type: DX Gender: F Description: LOWER EXTREMITY : 47 Institution: [facility] Physician: JP CORDERO Examination: Plain film knees History: BILATERAL KNEE PAIN X 10 YEARS, NO KNOWN INJURY (Hx) / ITS.REASON bilateral knee pain, crepitus. No effusion. (DICOM Hx) / ITS.REASON bilateral knee pain, crepitus. No effusion. (Pt comments) Findings: Single standing view of the knee demonstrates tibial spine and medial/ lateral ossific spurring. Significant medial joint space narrowing. No obvious cortical disruption. Impression: Moderate to advanced degenerative changes. No fracture. Electronically signed on May 24, 2017 11:24:10 AM CDT by: Galileo GONZALEZ
--- NOTE | 2017-05-24 12:10 | Diagnostic Imaging Report ---
JP CORDERO [facility] [address] [facility] [address] [address] Report Submission Date: May 24, 2017 11:22:47 AM CDT Patient Study Name: RAUDEL FREED Date: May 24, 2017 10:59:49 AM CDT Modality Type: DX Gender: F Description: LOWER EXTREMITY : 47 Institution: [facility] Physician: JP CORDERO Examination: Plain film knees bilaterally History: BILATERAL KNEE PAIN X 10 YEARS, NO KNOWN INJURY (Hx) / ITS.REASON bilateral knee pain, crepitus. No effusion. (DICOM Hx) / ITS.REASON bilateral knee pain, crepitus. No effusion. (Pt comments) Findings: 3 views of the left and right knees demonstrates tibial spine, medial/ lateral, and patellar spurring. Osteopenia. Medial joint space narrowing. No joint effusion. Posterior vascular calcifications. Impression: Osteopenia and degenerative changes. No fracture. Electronically signed on May 24, 2017 11:22:47 AM CDT by: Galileo GONZALEZ
== END 2017-05-24 10:46 ==
LOC: RAD 10:45
PROVIDERS: ATTEND Family Medicine
DX: M17.10 Unilateral primary osteoarthritis, unspecified knee (principal)
CPT/HCPCS: 73565

== ENCOUNTER 2017-07-03 21:20 | Observation (INO) | payer OTHER ==
--- NOTE | 2017-07-03 21:35 | ED Physician Documentation ---
General Adult - HISTORIAN Historian: patient, friend - HPI Stated Complaint: lethargic, fatigue, dizzy Chief Complaint: Neurological Deficits Onset: days ago (1) Timing: still present Severity: moderate Further Comments: yes (She states she started tramadol as a new med for her arthritis a few days ago. She did finally take her full days dose yesterday but she states this am she woke feeling dizzy, confused a bit, and "just out of it" She has been able to carry on her ADL's today. She is able to walk. Friend with her states she is doing normal with her conversation and ADL's. She uses a cane usally. She states she is emotional because she feels "so out of it") Last known Well Code/Unknown Code: Unknown - ROS CONST: no problems EYES/ENT: none CVS/RESP: none GI/: none MS/SKIN/LYMPH: none NEURO/PSYCH: dizziness. denies: difficulty walking, difficulty with speech - PAST HX Past History: A-Fib, CHF Other History: diabetes Type 2 Surgeries/Procedures: other (tubal) Immunizations: UTD Allergies/Adverse Reactions: Allergies Allergy/AdvReac Type Severity Reaction Status Date / Time ciprofloxacin AdvReac Severe Shakiness Verified 07/04/17 00:31 Home Medications: Ambulatory Orders Medication Instructions Recorded Metoprolol Tartrate [Lopressor] 25 mg PO BID #90 u2 11/30/15 - SOCIAL HX Smoking History: non-smoker Alcohol Use: none Drug Use: none - FAMILY HX Family History: No - VITAL SIGNS Vital Signs: Vital Signs Temp Pulse Resp BP Pulse Ox 104/49 05/12/17 14:26 - REVIEWED ASSESSMENTS Nursing Assessment Reviewed: Yes Vitals Reviewed: Yes Progress - Progress Progress: 2330: Discussed results - will admit pt for observation . She is agreeable. DG ED Results Lab/Radiology - Radiology Radiology Impressions: CT Brain without Contrast History: DIZZINESS, CONFUSION, PT STATES STATED NOT FEELING WELL ON 07/02/17 Technique: Transaxial CT was performed without contrast from the skull base to the vertex. Findings: Scattered bilateral white matter hypodensity is present, consistent with gliosis. Mild cerebral atrophy is present. The lateral ventricles are mildly dilated. No hemorrhage or edema-producing mass. The fourth ventricle is midline. Mucosal thickening is present within the paranasal sinuses and mastoid air cells. No skull fracture. The mastoid air cells are well developed and well aerated. Impression: 1. Mild cerebral atrophy and white matter gliosis. 2. No acute cerebral pathology. 3. Mild sinus disease Electronically signed on July 03, 2017 10:39:41 PM CDT by: Orlando Early General Adult Physical Exam - PHYSICAL EXAM GENERAL APPEARANCE: no distress EENT: eye inspection normal, ENT inspection normal, no signs of dehydration, TM' s nml NECK: normal inspection RESPIRATORY: no resp distress, chest non-tender, breath sounds normal CVS: other (irregular (she reports she has Afib) ) ABDOMEN: soft, normal bowel sounds RECTAL: normal exam BACK: normal inspection SKIN: warm/dry, normal color EXTREMITIES: non-tender, normal range of motion, no evidence of injury, no edema NEURO: oriented X3, CN's nml as tested, motor nml, sensation nml, mood/affect nml, cognition normal Discharge Clincal Impression: Dizziness, Vertigo Condition: Stable Disposition: 09 ADMITTED INPATIENT Decision to Admit: [id number] Date of Decison to Admit: 07/03/17 Decision Time: 23:30
[2017-07-03] MEDS ORDERED: 0.9 % SODIUM CHLORIDE 1,000 ML IV SCH (22:00)
[2017-07-03] MEDS ORDERED: 0.9 % SODIUM CHLORIDE 1,000 ML IV ONE (22:05)
[2017-07-03 22:08] LABS: MEAN CORPUSCULAR HEMOGLOBIN 29.7 pg (28.0-34.0)
[2017-07-03 22:09] LABS: MEAN CORPUSCULAR VOLUME 98.2 fl (80.0-100.0)
[2017-07-03 22:10] LABS: BASOPHILS % 0.2 (0.0-1.5); EOSINOPHILS % 4.4 % (0.0-6.8); MONOCYTES % 6.3 % (0.0-11.0); NEUTROPHILS # 3.4 # k/uL (1.4-7.7)
[2017-07-03 22:38] LABS: eGFR (Non-African) 43
[2017-07-04] MEDS ORDERED: AMOXICILLIN/POT 875/125 1 EACH PO ONE (00:13)
[2017-07-04] MEDS: HYDROCHLOROTHIAZIDE 25 MG TABLET PO SCH ×2 (01:20→09:56)
[2017-07-04] MEDS: POTASSIUM CHLORIDE 10 MEQ TABLET.ER PO SCH ×2 (01:21→09:56)
[2017-07-04 02:43] VITALS: BMI 38.1
--- NOTE | 2017-07-04 06:28 | Diagnostic Imaging Report ---
BRIELLE ABARCA [facility] [address] [facility] [address] [place], [place]. [address] Report Submission Date: July 03, 2017 10:39:41 PM CDT Patient Study Name: RAUDEL FREED Date: July 03, 2017 10:19:07 PM CDT Modality Type: CT\SR Gender: F Description: CT BRAIN W/O CONTRAST : 47 Institution: [facility] Physician: BRIELLE ABARCA CT Brain without Contrast History: DIZZINESS, CONFUSION, PT STATES STATED NOT FEELING WELL ON 07/02/17 Technique: Transaxial CT was performed without contrast from the skull base to the vertex. Findings: Scattered bilateral white matter hypodensity is present, consistent with gliosis. Mild cerebral atrophy is present. The lateral ventricles are mildly dilated. No hemorrhage or edema-producing mass. The fourth ventricle is midline. Mucosal thickening is present within the paranasal sinuses and mastoid air cells. No skull fracture. The mastoid air cells are well developed and well aerated. Impression: 1. Mild cerebral atrophy and white matter gliosis. 2. No acute cerebral pathology. 3. Mild sinus disease Electronically signed on July 03, 2017 10:39:41 PM CDT by: Orlando GONZALEZ
[2017-07-04] MEDS: 0.9 % SODIUM CHLORIDE 1,000 ML IV SCH ×3 (08:28→16:44)
[2017-07-04 08:34] LABS: eGFR (Non-African) > 60
[2017-07-04 08:38] LABS: BASOPHILS % 0.1 (0.0-1.5); EOSINOPHILS % 4.6 % (0.0-6.8); MEAN CORPUSCULAR HEMOGLOBIN 29.7 pg (28.0-34.0); MEAN CORPUSCULAR VOLUME 93.7 fl (80.0-100.0); MONOCYTES % 6.5 % (0.0-11.0); NEUTROPHILS # 3.3 # k/uL (1.4-7.7)
[2017-07-04] MEDS ORDERED: LISINOPRIL 20 MG TABLET PO SCH (09:00)
[2017-07-04] MEDS ORDERED: METOPROLOL TARTRATE 25 MG TABLET PO SCH (09:00)
[2017-07-04] MEDS ORDERED: FUROSEMIDE 40 MG TABLET PO SCH (09:00)
[2017-07-04 10:56] LABS: APPEARANCE,URINE Clear (CLEAR); COLOR,URINE Yellow (YELLOW); OCCULT BLOOD,URINE Negative (NEGATIVE); PH URINE 5.5 (5.0 - 8.0); UROBILINOGEN URINE 0.2 Eu (0.2-1.0)
[2017-07-04 11:00] LABS: CANNABINOIDS NEGATIVE ng/mL (< 50); METHYLENEDIOXYMETHAMPHETAMINE NEGATIVE ng/mL (<500)
[2017-07-04 14:41] VITALS: BP 115/71
[2017-07-04] MEDS ORDERED: RIVAROXABAN 10 MG TABLET PO SCH (21:00)
--- NOTE | 2017-07-05 11:04 | Discharge Summary ---
DATE OF ADMISSION: July 03, 2017 DATE OF DISCHARGE: July 04, 2017 DIAGNOSES ON THIS HOSPITALIZATION: 1. Vertigo 2. Atrial fibrillation. 3. Medication intolerance to tramadol. SUMMARIZATION OF ADMISSION HISTORY AND PHYSICAL: This is a 72-year-old female well known to myself who presented to the emergency room on the day of admission where she was feeling very dizzy. She was admitted and kept overnight. Her labs noted a very small elevation in her LFTs and her platelets were a little bit low but all of that was trending toward normal the next day. She was having no further abdominal pain. She was discharged home with continuation of all of her current medications but with cessation of tramadol. Tramadol will also be added to her allergy list. DISCHARGE INSTRUCTIONS: I will see her back in the office in a week for a recheck. LISA
== END 2017-07-04 18:50 | disposition home or self-care (01) ==
LOC: ED 21:20 → SOUTH 07-04 00:13 → INTOOBSV 07-04 00:13
PROVIDERS: ADMIT Nurse Practitioner Family; ATTEND Nurse Practitioner Family
DX: R42 Dizziness and giddiness (principal)
CPT/HCPCS: 70450; 80053; 80377; 81002; 82550; 83880; 85025; 85379; 85610; 85730; 93005; G0378; J7030; 96365; 96366; 99235; G0379; G0481; S1016

== ENCOUNTER 2017-07-08 16:00 | Outpatient (CLI) | payer OTHER ==
[2017-07-08 16:58] LABS: eGFR (African) > 60; eGFR (Non-African) 43
== END 2017-07-08 16:03 ==
LOC: LAB 16:00
PROVIDERS: ATTEND Family Medicine
DX: R74.0 Nonspecific elevation of levels of transaminase and lactic acid dehydrogenase [LDH] (principal); I50.22 Chronic systolic (congestive) heart failure
CPT/HCPCS: 36415; 80053; 83880

== ENCOUNTER 2017-10-22 20:01 | Observation (INO) | payer OTHER ==
--- NOTE | 2017-10-22 21:17 | ED Physician Documentation ---
General Adult - HISTORIAN Historian: patient - HPI Chief Complaint: General Adult Additional Information: Patient states that for the last 3 days she has been having some intermittent episodes of not feeling right, some dizziness, the room has been spinning at time. Has had some nausea associated with it. No vomiting noted. Worse with getting up from laying flat or when she turns over in bed. Patient has not fallen. No recent change in hearing, no new tinnitus noted. Patient denies any head trauma, headaches, weakness or numbness noted. Patient denies any chest pain, breathing difficulties, fever or chills. Onset: days ago (3 days) Timing: still present, persistent since - ROS CONST: weakness. denies: fever, chills EYES/ENT: none CVS/RESP: none. denies: chest pain, shortness of breath GI/: denies: problems urinating, vomiting - PAST HX Past History: COPD, A-Fib, hypertension Other History: diabetes Type 2 Surgeries/Procedures: other (breast bx) Immunizations: referred to PCP Allergies/Adverse Reactions: Allergies Allergy/AdvReac Type Severity Reaction Status Date / Time ciprofloxacin AdvReac Severe Shakiness Verified 10/22/17 21:19 Home Medications: Ambulatory Orders Medication Instructions Recorded Metoprolol Tartrate [Lopressor] 25 mg PO BID #90 u2 11/30/15 Celecoxib [Celebrex] 200 mg PO D 10/22/17 Tramadol HCl [Ultram] 50 mg PO Q6 PRN 10/22/17 - SOCIAL HX Smoking History: non-smoker Alcohol Use: none Drug Use: none - FAMILY HX Family History: No - VITAL SIGNS Vital Signs: Vital Signs Temp Pulse Resp BP Pulse Ox 115/71 07/04/17 18:00 - REVIEWED ASSESSMENTS Nursing Assessment Reviewed: Yes Vitals Reviewed: Yes ED Results Lab/Radiology - Orders Orders: ED Orders Category Date Time Status Place IV Lock 1T Care 10/22/17 21:14 Ordered CBC/PLATELET/DIFF Routine Lab 10/22/17 Ordered CMP Routine Lab 10/22/17 Ordered TROPONIN I (cTnI) Routine Lab 10/22/17 Ordered EKG WITH COMPARISON Routine Ther 10/22/17 Ordered General Adult Physical Exam - PHYSICAL EXAM GENERAL APPEARANCE: mild distress EENT: eye inspection normal, ENT inspection normal, pharynx normal, no signs of dehydration, no nystagmus, TM's nml (hearing decreased), other NECK: normal inspection, thyroid normal, supple RESPIRATORY: no resp distress, chest non-tender, breath sounds normal. No: wheezes, rales, rhonchi CVS: no murmur, irregularly irregular rhy ABDOMEN: soft, no organomegaly, normal bowel sounds, no distension, non-tender BACK: normal inspection SKIN: warm/dry, normal color EXTREMITIES: non-tender, normal range of motion, no evidence of injury, no edema NEURO: oriented X3, CN's nml as tested, motor nml, sensation nml, mood/affect nml, cognition normal Discharge Clincal Impression: Vertigo Referrals: Jose Antonio Crawford MD [Primary Care Provider] - 2 Days Condition: Stable Disposition: 01 HOME, SELF-CARE Decision to Admit: [id number] Date of Decison to Admit: 10/22/17 Decision Time: 22:09
[2017-10-22 21:22] LABS: BASOPHILS % 0.4 (0.0-1.5); EOSINOPHILS % 3.2 % (0.0-6.8); MEAN CORPUSCULAR HEMOGLOBIN 28.9 pg (28.0-34.0); MEAN CORPUSCULAR VOLUME 94.7 fl (80.0-100.0); NEUTROPHILS # 2.8 # k/uL (1.4-7.7)
[2017-10-22 21:29] LABS: eGFR (Non-African) 43
[2017-10-22] MEDS ORDERED: traMADol HCL 50 MG TABLET PO PRN (23:05)
[2017-10-22] MEDS ORDERED: ENOXAPARIN SODIUM 30 MG/0.3 ML DISP.SYRIN SQ SCH (23:45)
[2017-10-22] MEDS ORDERED: RIVAROXABAN 10 MG TABLET PO SCH (23:45)
[2017-10-23 00:06] VITALS: BMI 37.4
[2017-10-23] MEDS ORDERED: RIVAROXABAN 10 MG TABLET PO ONE (02:26)
[2017-10-23] MEDS ORDERED: MECLIZINE HCL 25 MG TABLET PO ONE ×2 (02:26→03:50)
[2017-10-23] MEDS: MECLIZINE HCL 25 MG TABLET PO SCH ×3 (02:36→12:09)
[2017-10-23] MEDS ORDERED: FUROSEMIDE 40 MG TABLET PO ONE (03:49)
[2017-10-23] MEDS ORDERED: METOPROLOL TARTRATE 25 MG TABLET ONE (03:50)
[2017-10-23] MEDS ORDERED: POTASSIUM CHLORIDE 10 MEQ TABLET.ER PO ONE (03:50)
[2017-10-23] MEDS ORDERED: HYDROCHLOROTHIAZIDE 25 MG TABLET PO ONE (03:50)
[2017-10-23] MEDS ORDERED: FERROUS SULFATE 325 MG TABLET PO ONE (03:50)
[2017-10-23] MEDS ORDERED: LISINOPRIL 20 MG TABLET ONE (03:51)
[2017-10-23 07:41] LABS: BASOPHILS % 0.2 (0.0-1.5); EOSINOPHILS % 3.8 % (0.0-6.8); MEAN CORPUSCULAR VOLUME 95.8 fl (80.0-100.0); MONOCYTES % 6.8 % (0.0-11.0); NEUTROPHILS # 2.3 # k/uL (1.4-7.7)
[2017-10-23 07:59] LABS: eGFR (Non-African) > 60
[2017-10-23] MEDS ORDERED: CELECOXIB 100 MG CAPSULE PO SCH (09:00)
[2017-10-23] MEDS ORDERED: LISINOPRIL 20 MG TABLET PO SCH (09:00)
[2017-10-23] MEDS ORDERED: HYDROCHLOROTHIAZIDE 25 MG TABLET PO SCH (09:00)
[2017-10-23] MEDS ORDERED: HYDROCHLOROTHIAZIDE PO SCH (09:00)
[2017-10-23] MEDS ORDERED: LISINOPRIL PO SCH (09:00)
[2017-10-23] MEDS ORDERED: METOPROLOL TARTRATE 25 MG TABLET PO SCH (09:00)
[2017-10-23] MEDS ORDERED: POTASSIUM CHLORIDE 10 MEQ TABLET.ER PO SCH (09:00)
[2017-10-23] MEDS ORDERED: FUROSEMIDE 40 MG TABLET PO SCH (09:00)
[2017-10-23] MEDS ORDERED: CELECOXIB 100 MG CAPSULE ONE (09:06)
[2017-10-23] MEDS ORDERED: traMADol HCL 50 MG TABLET ONE (09:40)
[2017-10-23 10:44] VITALS: BP 117/61
[2017-10-23] MEDS ORDERED: FERROUS SULFATE 325 MG TABLET PO SCH (11:00)
--- NOTE | 2017-10-23 12:21 | Discharge Summary ---
Discharge Summary - Discharge Sumary History of Present Illness: 72yo female who states that for the last 3 days she has been having some intermittent episodes of not feeling right, some dizziness, the room has been spinning at time. Has had some nausea associated with it. No vomiting noted. Worse with getting up from laying flat or when she turns over in bed. Patient has not fallen. No recent change in hearing, no new tinnitus noted. Patient denies any head trauma, headaches, weakness or numbness noted. Patient denies any chest pain, breathing difficulties, fever or chills. Onset: days ago (3 days)Patient denies any previous history of any vertigo her dizziness problems. Patient denies any head trauma. Condition at Discharge: Stable Home Medications: Ambulatory Orders Medication Instructions Recorded Metoprolol Tartrate [Lopressor] 25 mg PO BID #90 u2 11/30/15 Celecoxib [Celebrex] 200 mg PO D 10/22/17 Tramadol HCl [Ultram] 50 mg PO Q6 PRN 10/22/17 Meclizine HCl [Antivert] 25 mg PO Q6 PRN #30 tablet 10/23/17 Omeprazole 40 mg PO HS #60 capsule. 10/30/17 Sucralfate [Carafate] 1 gm PO ACHS #120 tablet 10/30/17 Consultations this Visit: None Procedures this Visit: None Allergies/Adverse Reactions: Allergies Allergy/AdvReac Type Severity Reaction Status Date / Time ciprofloxacin AdvReac Severe Shakiness Verified 10/30/17 18:00 Discharge Summary: Patient was started on meclizine. The did seem to help with patient dizziness. At the time to discharge patient was still having some slight dizziness but was much improved. Patient no longer having any nausea vomiting. Patient was able to ambulate without much difficulties. It was felt that the patient was stable enough to be discharged home and followed up on an outpatient basis. Patient elevated liver function tests remain stable. Patient did have a mild increase in her BUN and creatinine felt to probably be related to some mild dehydration related to her dizziness.Patient with discharged home in stable condition. - Final Diagnosis (1) Vertigo Problems: Will start meclazine 25mg QID (2) Elevated liver function tests Problems: These have been elevated in the past. Patient is not sure why. Will follow-up with Dr Thompson (3) Atrial fibrillation Problems: good rate control, appears to be in NSR with some bradycardia (4) CHF (congestive heart failure) Problems: appears stable
[2017-10-23] MEDS ORDERED: APIXABAN 2.5 MG TABLET PO ONE (14:07)
== END 2017-10-23 14:00 | disposition home or self-care (01) ==
LOC: ED 20:01 → SOUTH 22:35
PROVIDERS: ADMIT Family Medicine; ATTEND Family Medicine
DX: R42 Dizziness and giddiness (principal); I48.91 Unspecified atrial fibrillation; I50.9 Heart failure, unspecified; R94.5 Abnormal results of liver function studies
CPT/HCPCS: 80053; 84484; 85025; 93005; G0378; 99217; 99283; S1016

== ENCOUNTER 2017-10-30 17:42 | Emergency (ER) | payer OTHER ==
--- NOTE | 2017-10-30 18:07 | ED Physician Documentation ---
General Adult - HISTORIAN Historian: patient - HPI Chief Complaint: General Adult Further Comments: yes (72 year old female patient presents with complaint of "spitting up" blood. Patient states symptoms started today. Very vague with HPI and ROS. Denies abdominal pain, reports dark stools - currently on iron. Denies nausea.) - ROS CONST: no problems EYES/ENT: sore throat, nasal congestion CVS/RESP: none GI/: black stools MS/SKIN/LYMPH: none NEURO/PSYCH: denies: headache, fainting, dizziness, tingling, numbness, difficulty walking, difficulty with speech, anxiety, depression, other - PAST HX Past History: hypertension Other History: other Allergies/Adverse Reactions: Allergies Allergy/AdvReac Type Severity Reaction Status Date / Time ciprofloxacin AdvReac Severe Shakiness Verified 10/30/17 18:00 Home Medications: Ambulatory Orders Medication Instructions Recorded Metoprolol Tartrate [Lopressor] 25 mg PO BID #90 u2 11/30/15 Celecoxib [Celebrex] 200 mg PO D 10/22/17 Tramadol HCl [Ultram] 50 mg PO Q6 PRN 10/22/17 Meclizine HCl [Antivert] 25 mg PO Q6 PRN #30 tablet 10/23/17 Omeprazole 40 mg PO HS #60 capsule. 10/30/17 Sucralfate [Carafate] 1 gm PO ACHS #120 tablet 10/30/17 - SOCIAL HX Smoking History: non-smoker - FAMILY HX Family History: No - VITAL SIGNS Vital Signs: Vital Signs Temp Pulse Resp BP Pulse Ox 117/61 10/23/17 10:00 - REVIEWED ASSESSMENTS Nursing Assessment Reviewed: Yes Vitals Reviewed: Yes Progress - Progress Progress: Reviewed lab and medication list. Patient on celebrex for arthritis and xarelto for A Fib. Protonix given in Er. Will start omeprazole and carafate. Hold celebrex for now. F/U with primary care next week. ED Results Lab/Radiology - Orders Orders: ED Orders Category Date Time Status Place IV Lock 1T Care 10/30/17 18:04 Ordered CHEST 2VIEW [RAD] Stat Exams 10/30/17 18:04 Ordered CBC/PLATELET/DIFF Stat Lab 10/30/17 18:04 Ordered CMP Stat Lab 10/30/17 18:04 Ordered General Adult Physical Exam - PHYSICAL EXAM GENERAL APPEARANCE: flat affect RESPIRATORY: no resp distress, chest non-tender, breath sounds normal CVS: reg rate & rhythm, heart sounds normal, equal pulses, no murmur, no gallop, PMI nml, no JVD, no friction rub, 24 ABDOMEN: soft, no organomegaly, normal bowel sounds, no abdominal bruit, no distension SKIN: normal color, warm/dry, NR, INT, PAL, DR EXTREMITIES: non-tender, normal range of motion, no evidence of injury, no edema, J, PICKER NEURO: oriented X3, CN's nml as tested, motor nml, sensation nml, mood/affect nml Discharge Clincal Impression: Gastritis Qualifiers: Gastritis type: other gastritis Chronicity: acute Gastritis bleeding: with bleeding Qualified Code(s): K29.01 - Acute gastritis with bleeding Prescriptions: Omeprazole 40 mg PO HS #60 capsule. Sucralfate [Carafate] 1 gm PO ACHS #120 tablet Referrals: Jose Antonio Crawford MD [Primary Care Provider] - 2 Days Additional Instructions: Hold Celebrex until seen by your primary care doctor [employer] supervisor your new medications and start them tomorrow. Return to the ER, if bleeding becomes worse or you have shortness of breath or chest pain. Condition: Stable Disposition: 01 HOME, SELF-CARE Decision to Admit: NO Decision Time: 19:28
[2017-10-30 18:18] LABS: BASOPHILS % 0.1 (0.0-1.5); EOSINOPHILS % 3.2 % (0.0-6.8); MEAN CORPUSCULAR HEMOGLOBIN 29.1 pg (28.0-34.0); MEAN CORPUSCULAR VOLUME 93.2 fl (80.0-100.0); MONOCYTES % 6.1 % (0.0-11.0); NEUTROPHILS # 3.5 # k/uL (1.4-7.7)
[2017-10-30] MEDS: PANTOPRAZOLE SODIUM 80 MG in 0.9 % SODIUM CHLORIDE 50 ML IV ONE (18:45)
--- NOTE | 2017-10-30 18:45 | Diagnostic Imaging Report ---
FIDE FONTANA (WIRER HELPER) - ER [facility] [address] [address] Report Submission Date: Oct 30, 2017 6:43:16 PM CDT Patient Study Name: RAUDEL FREED Date: Oct 30, 2017 6:19:46 PM CDT Modality Type: DX Gender: F Description: CHEST : 47 Institution: [facility] Physician: FIDE FONTANA (JULIEN) - ER Chest 2 views Date of Exam: October 30, 2017. History: COUGH X 1 DAY (Hx) / ITS.REASON cough Findings: No comparison studies are provided. The cardiac and mediastinal silhouettes are normal. The lungs are clear. There is no evidence of infiltrate or effusion. The trachea is midline. Aortic arch atherosclerotic calcifications are noted. The pulmonary vascularity is within normal limits. Impression: No acute cardiopulmonary abnormality. Electronically signed on Oct 30, 2017 6:43:16 PM CDT by: Aren GONZALEZ
[2017-10-30 19:35] VITALS: BP 137/65
== END 2017-10-30 19:40 | disposition home or self-care (01) ==
LOC: ED 17:42
DX: K29.01 Acute gastritis with bleeding (principal)
CPT/HCPCS: 71046; 80053; 85025; 85610; 85730; 96365; S1016

== ENCOUNTER 2017-11-28 10:35 | Day surgery (SDC) | payer OTHER ==
[~2017-11-28 10:35] MED LIST: LACTATED RINGERS 1,000 ML IV.SOLN IV ONE; LIDOCAINE HCL/PF 2% 100 MG/5 ML VIAL IJ ONE; PROPOFOL 500 MG/50 ML VIAL IV ONE; SALINE FLUSH 10 ML DISP.SYRIN IVF ONE
--- NOTE | 2017-11-28 13:53 | GI Report ---
REFERRING PHYSICIAN: Dr. Jose Antonio Crawford PRODUCT SAFETY SPECIALIST: Krunal Chavira MD PROCEDURE MEDICATION: Propofol as per anesthesia. INDICATIONS: Patient is a 72-year-old woman who had a recent episode of hematemesis. She had been vomiting for a while. She is on Xarelto for cardiac issues. She also has metabolic syndrome and has marked central obesity. She is on antihypertensives. She denies food stopping. Patient is 5 feet 1 inch and she weighs 88 kilograms and carries that centrally. PROCEDURE PERFORMED: Endoscopy. PROCEDURE: An Olympus video endoscope is passed through the esophagus under direct visualization. She has grade 2 esophagitis. She was not bleeding in the GE junction. She had a wide open GE junction. She has atrophic gastritis and a couple of gastric polyps. One of them was a little erythematous. Antrum was open. Pylorus was open. Antrum with kind of a chronic atrophic gastritis. Duodenal bulb and first and second part of the duodenum exam were normal. There was no bleeding at the present time. At the end of the procedure, we were considering possibly doing a biopsy for H. Pylori, but the patient dropped her pulse oximetry, so we discontinued the procedure. She did not ventilate well with her size, so we did bag ventilate her for a little bit and then she came back on her own. FINDINGS: 1. Atrophic gastritis. 2. Reflux esophagitis. 3. Gastric polyps. 4. Patient has hypoventilation issues with her marked central obesity. RECOMMENDATIONS: 1. She also had some elevated liver tests. Her bilirubin has been normal in the 0.6 range. Her alkaline phosphatase has remained normal in the 76 to 83 range but her ALT has been from 96 to 150 range and AST from 144 to 196 range. This is consistent with WALTERS or fatty replacement of her liver. A CAT scan or ultrasound of the upper abdomen would be one way looking for fatty replacement. If she has that, it is crucial that she needs to lose 10% of her body weight, which would be about 25 to 30 pounds, to help get the fat out of the liver. It would also help her breathing and would also help her reflux. 2. She needs to be on kind of a rigid diabetic diet with protein, fruits, and vegetables but needs to cut back on the carbohydrates, which are basically all sugar. cc: Dr. Jose Antonio GONZALEZ
== END 2017-11-28 10:36 ==
LOC: OPSURG 10:35
PROVIDERS: ATTEND Internal Medicine Gastroenterology
DX: K29.40 Chronic atrophic gastritis without bleeding (principal); K21.0 Gastro-esophageal reflux disease with esophagitis; K31.7 Polyp of stomach and duodenum; E66.2 Morbid (severe) obesity with alveolar hypoventilation
CPT/HCPCS: J2001; J2704; J7120; 43235; S1016

== ENCOUNTER 2017-12-25 10:00 | Emergency (ER) | payer OTHER ==
--- NOTE | 2017-12-25 10:55 | ED Physician Documentation ---
General Adult - HISTORIAN Historian: patient - HPI Stated Complaint: Spotting Blood Chief Complaint: General Adult Additional Information: Noticed blood spots on underwear since 12/23. This am, when she urinated, noticed drops of blood in toilet water. Takes Xarelto, a fib. No discomfort except arthritis. No other modifying factors or associated signs. - ROS CONST: no problems - PAST HX Past History: asthma (no hospitalizations), A-Fib Allergies/Adverse Reactions: Allergies Allergy/AdvReac Type Severity Reaction Status Date / Time ciprofloxacin AdvReac Severe Shakiness Verified 10/30/17 18:00 Home Medications: Ambulatory Orders Medication Instructions Recorded Metoprolol Tartrate [Lopressor] 25 mg PO BID #90 u2 11/30/15 Celecoxib [Celebrex] 200 mg PO D 10/22/17 Tramadol HCl [Ultram] 50 mg PO Q6 PRN 10/22/17 Meclizine HCl [Antivert] 25 mg PO Q6 PRN #30 tablet 10/23/17 Sucralfate [Carafate] 1 gm PO ACHS #120 tablet 10/30/17 - SOCIAL HX Smoking History: non-smoker - FAMILY HX Family History: Yes (breast cancer, paternal and maternal relatives) - VITAL SIGNS Vital Signs: Vital Signs Temp Pulse Resp BP Pulse Ox 98 F 72 18 106/48 97 12/25/17 10:00 12/25/17 10:00 12/25/17 10:00 12/25/17 10:00 12/25/17 10:00 - REVIEWED ASSESSMENTS Nursing Assessment Reviewed: Yes Vitals Reviewed: Yes Progress - Progress Progress: Report Submission Date: Dec 25, 2017 10:55:19 AM CDT Patient Study Name: RAUDEL FREED Date: Dec 25, 2017 10:29:59 AM CDT Modality Type: CT\SR Gender: F Description: CT ABD PELVIS W/O CO : 47 Institution: [facility] Physician: GUSTAVO HAN - CRYSTAL CT abdomen and pelvis without contrast History: Hematuria Technique: Images through the abdomen and pelvis were obtained without contrast. Findings: The lung bases are clear. The liver has a nodular contour, suggesting the presence of cirrhosis. Small calcified gallstone is noted in the gallbladder. Small hiatal hernia is present. The spleen, pancreas, kidneys and adrenal glands are normal. Small left lower pole renal cyst is present. There is no hydronephrosis, hydroureter or renal calculus. There is no free air or fluid. There is no bowel obstruction. Appendix is normal. There is extensive calcification in the abdominal aorta. Calcified uterine fibroids are present. There is retroperitoneal lipomatosis. Impression: Retroperitoneal lipomatosis. Small hiatal hernia. Atherosclerosis. With kyphosis. Electronically signed on Dec 25, 2017 10:55:19 AM CDT by: Ricky Ramos ED Results Lab/Radiology - Orders Orders: ED Orders Category Date Time Status CT ABD & PELVIS W/O CON Stat Exams 12/25/17 Ordered UA [URINALYSIS] Routine Lab 12/25/17 Ordered General Adult Physical Exam - PHYSICAL EXAM GENERAL APPEARANCE: no distress EENT: eye inspection normal, ENT inspection normal, pharynx normal NECK: normal inspection, supple RESPIRATORY: no resp distress, breath sounds normal CVS: reg rate & rhythm, heart sounds normal, frequent extrasystoles ABDOMEN: soft, normal bowel sounds, no distension, non-tender BACK: normal inspection, no CVA tenderness, other (no vertebral tenderness) SKIN: warm/dry, normal color EXTREMITIES: no evidence of injury, edema (1+ ankles) NEURO: CN's nml as tested, motor nml, sensation nml, cognition normal Discharge Clincal Impression: Hematuria Qualifiers: Hematuria type: unspecified type Qualified Code(s): R31.9 - Hematuria, unspecified Referrals: Jose Antonio Crawford MD [Primary Care Provider] - 2 Days Condition: Good Disposition: 01 HOME, SELF-CARE Decision to Admit: NO Decision Time: 10:59
[2017-12-25 11:09] VITALS: BP 108/52
--- NOTE | 2017-12-25 11:19 | Diagnostic Imaging Report ---
GUSTAVO HAN [facility] [address] [facility] [address] [place], [place]. [address] Report Submission Date: Dec 25, 2017 10:55:19 AM CDT Patient Study Name: RAUDEL FREED Date: Dec 25, 2017 10:29:59 AM CDT Modality Type: CT\SR Gender: F Description: CT ABD PELVIS W/O CO : 47 Institution: [facility] Physician: GUSTAVO HAN CT abdomen and pelvis without contrast History: Hematuria Technique: Images through the abdomen and pelvis were obtained without contrast. Findings: The lung bases are clear. The liver has a nodular contour, suggesting the presence of cirrhosis. Small calcified gallstone is noted in the gallbladder. Small hiatal hernia is present. The spleen, pancreas, kidneys and adrenal glands are normal. Small left lower pole renal cyst is present. There is no hydronephrosis, hydroureter or renal calculus. There is no free air or fluid. There is no bowel obstruction. Appendix is normal. There is extensive calcification in the abdominal aorta. Calcified uterine fibroids are present. There is retroperitoneal lipomatosis. Impression: Retroperitoneal lipomatosis. Small hiatal hernia. Atherosclerosis. With kyphosis. Electronically signed on Dec 25, 2017 10:55:19 AM CDT by: Ricky GONZALEZ
[2017-12-26 11:12] LABS: APPEARANCE,URINE CLOUDY (CLEAR); COLOR,URINE YELLOW (YELLOW); OCCULT BLOOD,URINE 3+ (NEGATIVE)
== END 2017-12-25 11:06 | disposition home or self-care (01) ==
LOC: ED 10:00
DX: R31.9 Hematuria, unspecified (principal); I48.91 Unspecified atrial fibrillation
CPT/HCPCS: 74176; 81002

== ENCOUNTER 2018-05-08 12:38 | Outpatient (CLI) | payer OTHER ==
[2018-05-08 13:06] LABS: BASOPHILS % 0.2 (0.0-1.5); EOSINOPHILS % 2.3 % (0.0-6.8); MONOCYTES % 8.5 % (0.0-11.0); NEUTROPHILS # 2.7 # k/uL (1.4-7.7)
[2018-05-08 13:37] LABS: eGFR (Non-African) 33
== END 2018-05-08 12:40 ==
LOC: LAB 12:38
PROVIDERS: ATTEND Family Medicine
DX: R74.0 Nonspecific elevation of levels of transaminase and lactic acid dehydrogenase [LDH] (principal); D50.0 Iron deficiency anemia secondary to blood loss (chronic); E11.9 Type 2 diabetes mellitus without complications; E78.00 Pure hypercholesterolemia, unspecified
CPT/HCPCS: 36415; 80053; 80061; 83036; 85025

== ENCOUNTER 2018-06-17 08:12 | Emergency (ER) | payer OTHER ==
--- NOTE | 2018-06-17 08:18 | ED Physician Documentation ---
Upper Respiratory Symptoms - HISTORIAN Historian: patient - HPI Stated Complaint: cough x 3 days no fever Chief Complaint: Cough/ Upper Respiratory Onset: days ago (3) Context: denies: recent foreign travel, insect bite(s), tick(s), recent chemotherapy, multiple patients Severity: mild Associated Symptoms: productive cough (clear sputum ). denies: fever, chills, sweating, earache, runny nose, sinus pain, sinus drainage, sore throat, hoarseness, allergy, hay fever, chest pain, bloody cough, shortness of breath, hurts to breathe, headache Worsened by Deep Breath: No Further Comments: yes (she reports cough x 3 days. She has used cough drops. No fever. No sick contacts. No increased fatigue. No sinus pain or pressure. No ear pain. No sore throat. She notes her back and chest at times have had increased sore feeling with cough - she has not tried any OTC meds for this issue.) - ROS CONST/EYES: other (none ) CVS/RESP: none LYMPH: denies: rash GI/: none MS/SKIN: denies: rash - PAST HX Lung Disease: none Allergies/Adverse Reactions: Allergies Allergy/AdvReac Type Severity Reaction Status Date / Time ciprofloxacin AdvReac Severe Shakiness Verified 10/30/17 18:00 Home Medications: Ambulatory Orders Medication Instructions Recorded Celecoxib [Celebrex] 200 mg PO D 10/22/17 Tramadol HCl [Ultram] 50 mg PO Q6 PRN 10/22/17 Meclizine HCl [Antivert] 25 mg PO Q6 PRN #30 tablet 10/23/17 - SOCIAL HX Smoking History: non-smoker Alcohol Use: none Drug Use: none - FAMILY HX Family History: none - VITAL SIGNS Vital Signs: Vital Signs Temp Pulse Resp BP Pulse Ox 98.8 F 73 18 132/55 99 06/17/18 08:28 06/17/18 08:28 06/17/18 08:28 06/17/18 08:28 06/17/18 08:28 - REVIEWED ASSESSMENTS Nursing Assessment Reviewed: Yes Vitals Reviewed: Yes Upper Respiratory Symptoms - EXAM General Appearance: no acute distress, alert EENT: eyes nml inspection, nml ENT inspection, PERRL, ear nml, pharynx nml, airway nml Neck: normal inspection Respiratory: no resp. distress, breath sounds nml, speaks full sentences Abdomen: non-tender, no organomegaly, nml bowel sounds, no distention CVS: reg rate & rhythm, heart sounds normal, equal pulses Skin: color nml, no rash, warm,dry Extremities: non-tender Neuro/Psych: oriented x3 Discharge Clincal Impression: Cough Referrals: Jose Antonio Crawford MD [Primary Care Provider] - 2 Days Comments: 1. Tessalon Pears take 1 by mouth every 8 hours as needed for cough 2. Increase fluids 3. OTC meds as directed as needed for pain or other symptoms 4. See PCP in 2-4 days if no improvement 5. Return to ER for any increasing concerns Condition: Stable Disposition: 01 HOME, SELF-CARE Decision to Admit: NO Date of Decison to Admit: 06/17/18 Decision Time: 08:45
[2018-06-17 08:31] VITALS: BP 132/55
== END 2018-06-17 08:56 | disposition home or self-care (01) ==
LOC: ED 08:12
DX: R05 Cough (principal)
CPT/HCPCS: 99281; 99283

== ENCOUNTER 2018-07-07 14:15 | Outpatient (CLI) | payer OTHER ==
[2018-07-07 16:45] LABS: BASOPHILS % 0.2 % (0.0-1.5); EOSINOPHILS % 4.7 % (0.0-6.8); MEAN CORPUSCULAR HEMOGLOBIN 31.5 pg (28.0-34.0); MONOCYTES % 12.2 % (0.0-11.0); NEUTROPHILS # 3.1 # k/uL (1.4-7.7)
[2018-07-07 16:46] LABS: eGFR (Non-African) 39
== END 2018-07-07 14:25 ==
LOC: LABRHC 14:15
PROVIDERS: ATTEND Family Medicine
DX: D50.0 Iron deficiency anemia secondary to blood loss (chronic) (principal); I50.22 Chronic systolic (congestive) heart failure; N18.2 Chronic kidney disease, stage 2 (mild)
CPT/HCPCS: 36415; 80053; 85025

== ENCOUNTER 2018-10-12 16:08 | Inpatient (IN) | payer OTHER ==
[2018-10-12 16:54] VITALS: BMI 35.1
[2018-10-12] MEDS ORDERED: ALBUTEROL 90MCG/PUFF INHALER IH PRN (17:38)
--- NOTE | 2018-10-12 17:47 | History and Physical Report ---
History of Present Illnes - History of Present Illness Reason for Visit: Admission, gait disturbance following illness History of Present Illness: 73 yo female who has a history of atrial fibrillation on anticoagulation therapy, coronary artery disease, essential hypertension, obstructive sleep apnea ( on CPAP), and osteoarthritis. Patient developed some increasing shortness of breath. Patient presented to the emergency room at [facility] in clinic was felt to have congestive heart failure was subsequently admitted. She had a OH work-up and was negative. Patient became weak and it was felt that she would benefit from some PT and OT prior to going home. Patient has been having some swelling to the legs. Patient has had some orthopnic symptoms. patient stated her breathing seem to be stable at this time. - Past Medical History Cardiac: AFIB, CHF, HTN Pulmonary: Asthma, Sleep Apnea (obstructive) Musculoskeletal: Osteoarthritis ENT: Allergic rhinitis Renal/: Chronic renal failure (stage 4) - Past Surgical History Past Surgical History: Tubal Ligation, Other (D&C for post menopausal bleeding) - Past Family History Mother Family History: (26yo unknown) Father Family History: CAD, (75yo - unknow) Sister 2 Family History: Cancer (breast), DM, , Other (SLe) Sister 1 Family History: Other (good health ) - Past Social History Smoke: No Occupation: retired hairdresser Alcohol: None Drugs: None Lives: Alone Domestic Violence: Negative - Health Maintenance Health Maintenance: Pneumococcal Vaccine Pneumonia Vaccine: Yes Resuscitation Status: Resusciation Status Resuscitation Status Full Code - Unable to Obtain History Unable to Obtain: No Review of Systems - Review of Systems Constitutional: Weakness. negative: Fever, Chills Eyes: negative: pain, vision change ENT: negative: Nose Pain, Nose Discharge, Nose Congestion Respiratory: Cough, Dry. negative: Shortness of Breath, Hemoptysis, SOB with Excertion, Pleuritic Pain, Wheezing Cardiovascular: Orthopnea, Edema. negative: Chest Pain, Palpitations, Paroxysmal Noc. Dyspnea, Light Headedness Gastrointestinal: Other (last BM yesterday). negative: Nausea, Vomiting, Abdominal Pain, Diarrhea, Constipation, Melena, Hematochezia Genitourinary: negative: Dysuria, Frequency, Incontinence, Hematuria Musculoskeletal: Leg Pain (right knee) Skin: negative: Rash Neurological: Weakness, Numbness, Incoordination - Medications/Allergies Allergies/Adverse Reactions: Allergies Allergy/AdvReac Type Severity Reaction Status Date / Time ciprofloxacin AdvReac Severe Shakiness Verified 10/30/17 18:00 Current Inpatient Medications: Current Inpatient Medications Acetaminophen/Codeine Phosphate (Tylenol #3) 1 each PO Q4 PRN PRN Reason: Mild Pain (Score 1-4) Stop: 11/11/18 17:37 Albuterol Sulfate (Ventolin Hfa) 2 puff IH Q4H PRN PRN Reason: Bronchodialation Stop: 11/11/18 17:37 Calcium/Vitamin D (Oscal + D 500mg/200unit) 1 each PO DAILY SHERRON Stop: 11/12/18 08:59 Furosemide (Lasix) 40 mg PO DAILY SHERRON Stop: 11/12/18 08:59 Gabapentin (Neurontin) 100 mg PO BID SHERRON Stop: 11/11/18 20:59 Hydrochlorothiazide (Hydrodiuril) 25 mg PO DAILY SHERRON Stop: 11/12/18 08:59 Lisinopril (Prinivil) 20 mg PO DAILY SHERRON Stop: 11/12/18 08:59 Metoprolol Tartrate (Lopressor) 25 mg PO BID SHERRON Stop: 11/11/18 20:59 Miscellaneous (Ferrous Sulfate [Ferrous Sulfate]) 325 mg PO BID SHERRON Stop: 11/11/18 20:59 Miscellaneous (Fluticasone/Salmeterol [Advair Hfa 230-21 Mcg Inhaler]) 8 gm IH BID SHERRON Stop: 11/11/18 20:59 Miscellaneous (Potassium Chloride [Potassium Chloride]) 10 meq PO BID SHERRON Stop: 11/11/18 20:59 Pantoprazole Sodium (Protonix) 40 mg PO DAILY SHERRON Stop: 11/12/18 08:59 Rivaroxaban (Xarelto) 15 mg PO 1700 SHERRON Stop: 11/12/18 16:59 Exam - Exam Vital Signs: Vital Signs (72 hours) 10/12/18 10/12/18 16:47 16:48 Temperature 98.3 F 98.3 F Pulse Rate [ 67 Left] Pulse Rate [ 67 Right] Respiratory 20 20 Rate Blood Pressure 138/61 138/61 [Right Arm] O2 Sat by Pulse 91 L 91 L Oximetry General: Alert, Oriented to Person, Oriented to Place, Oriented to Time, Cooperative, No acute distress HEENT: Atraumatic, PERRLA, EOMI, Mouth Mucous membr. moist/[place], Nose Mucous membr. moist/[place], Edentulous, Hearing Grossly Normal Neck: Normal Range of Motion Carotids: WNL Thyroid: WNL Lungs: Clear to auscultation, Normal air movement, Speaks full Sentences. No: Wheezes, Rales, Rhonchi Cardiovascular: Normal S1, Normal S2, No murmurs, Irregularly Irregular Abdomen: Normal bowel sounds, Soft, No tenderness, No hepatospenomegaly, No masses Integumentary: Normal, Warm, Dry Extremities: No cyanosis, No edema, Normal pulses, No tenderness/swelling Neurological: Normal speech, Strength Equal Bilat, Normal tone, Sensation intact, Cranial nerves 3-12 NL, Reflexes 2+, Generalized Weakness Psych/Mental Status: Mental status NL, Mood NL, Appropriate Affect, Intact Judgment Assessment/Plan - Assessment/Plan (1) Gait disturbance Status: Acute Current Visit: Yes Assessment: PT and OT evaluation, goal is for patient to return home. (2) Osteoarthritis, knee Status: Chronic Current Visit: Yes Qualifiers: Osteoarthritis type: primary Assessment: Right knee. Patient is trying to get evaluated to total knee replacement (3) Atrial fibrillation Status: Chronic Current Visit: No Qualifiers: Atrial fibrillation type: chronic Qualified Code(s): I48.2 - Chronic atrial fibrillation Assessment: adequate rate control at this time (4) CHF (congestive heart failure) Status: Acute Current Visit: No Qualifiers: Heart failure chronicity: acute Narrative Support Text: improved and stable at this time. I was not able to find EF in med records from the [facility]. (5) Asthma Status: Chronic Current Visit: Yes Qualifiers: Asthma persistence: intermittent Asthma complication type: uncomplicated Assessment: stable at this time VTE Assessment - RISK FACTOR SCORE VTE RISK FACTOR SCORES: AGE OVER 60 YEARS, CONGESTIVE HEART FAILURE OR MYOCARDIAL INFARCTION - RISK VTE MODERATE RISK: SCORE OF 2 (RISK PROXIMAL DVT 2-4%) PROPHYAXIS NEEDED (on Xerelto at this time)
[2018-10-12] MEDS: ACETAMINOPHEN WITH CODEINE 300MG/30MG TABLET PO PRN (20:40)
[2018-10-12] MEDS: SALMETEROL IH SCH ×2 (20:40→21:01)
[2018-10-12] MEDS: FLUTICASONE IH SCH ×2 (20:40→21:01)
[2018-10-12] MEDS: METOPROLOL TARTRATE 25 MG TABLET PO SCH (20:40)
[2018-10-12] MEDS: GABAPENTIN 100 MG CAPSULE PO SCH (20:40)
[2018-10-12] MEDS: FERROUS SULFATE 325 MG TABLET PO ONE ×3 (20:41→21:03)
[2018-10-12] MEDS: POTASSIUM CHLORIDE 10 MEQ TABLET.ER PO ONE ×3 (20:42→21:03)
[2018-10-12] MEDS: METOPROLOL TARTRATE 50 MG TABLET ONE ×3 (20:42→21:03)
[2018-10-12] MEDS ORDERED: FERROUS SULFATE 325 MG PO SCH (21:00)
[2018-10-12] MEDS ORDERED: POTASSIUM CHLORIDE 10 MEQ PO SCH (21:00)
[2018-10-13] MEDS: ACETAMINOPHEN WITH CODEINE 300MG/30MG TABLET PO PRN ×4 (03:58→21:28)
[2018-10-13] MEDS: FLUTICASONE/SALMETEROL 250-50 INHALER IH SCH ×2 (09:33→21:27)
[2018-10-13] MEDS: FERROUS SULFATE 325 MG TABLET PO SCH ×2 (09:34→21:28)
[2018-10-13] MEDS: LISINOPRIL 10 MG TABLET PO SCH (09:34)
[2018-10-13] MEDS: hydroCHLOROthiazide 25 MG TABLET PO SCH (09:34)
[2018-10-13] MEDS: FUROSEMIDE 40 MG TABLET PO SCH (09:34)
[2018-10-13] MEDS: PANTOPRAZOLE SODIUM 40 MG TABLET.DR PO SCH (09:34)
[2018-10-13] MEDS: POTASSIUM CHLORIDE 10 MEQ TABLET.ER PO SCH ×2 (09:34→21:28)
[2018-10-13] MEDS: CALCIUM/VIT D 500MG/200 UNIT TABLET PO SCH (09:35)
[2018-10-13] MEDS: GABAPENTIN 100 MG CAPSULE PO SCH ×2 (09:35→21:28)
[2018-10-13] MEDS: METOPROLOL TARTRATE 25 MG TABLET PO SCH ×2 (09:35→21:27)
[2018-10-13] MEDS: RIVAROXABAN 15 MG TABLET PO SCH (17:37)
[2018-10-14] MEDS: ACETAMINOPHEN WITH CODEINE 300MG/30MG TABLET PO PRN ×2 (02:30→09:32)
[2018-10-14] MEDS: PANTOPRAZOLE SODIUM 40 MG TABLET.DR PO SCH (06:22)
[2018-10-14] MEDS: CALCIUM/VIT D 500MG/200 UNIT TABLET PO SCH (09:28)
[2018-10-14] MEDS: GABAPENTIN 100 MG CAPSULE PO SCH ×2 (09:28→20:40)
[2018-10-14] MEDS: LISINOPRIL 10 MG TABLET PO SCH (09:28)
[2018-10-14] MEDS: POTASSIUM CHLORIDE 10 MEQ TABLET.ER PO SCH ×2 (09:28→20:41)
[2018-10-14] MEDS: FLUTICASONE/SALMETEROL 250-50 INHALER IH SCH ×2 (09:28→20:40)
[2018-10-14] MEDS: FERROUS SULFATE 325 MG TABLET PO SCH ×2 (09:28→20:41)
[2018-10-14] MEDS: hydroCHLOROthiazide 25 MG TABLET PO SCH (09:29)
[2018-10-14] MEDS: FUROSEMIDE 40 MG TABLET PO SCH (09:29)
[2018-10-14] MEDS: METOPROLOL TARTRATE 25 MG TABLET PO SCH ×2 (09:29→20:40)
[2018-10-14] MEDS: HYDROcodone /APAP 5/325 1 EACH TABLET PO PRN (13:28)
[2018-10-14] MEDS: RIVAROXABAN 15 MG TABLET PO SCH (17:49)
[2018-10-15] MEDS: HYDROcodone /APAP 5/325 1 EACH TABLET PO PRN ×4 (03:30→20:42)
[2018-10-15] MEDS: PANTOPRAZOLE SODIUM 40 MG TABLET.DR PO SCH (05:50)
[2018-10-15] MEDS: FLUTICASONE/SALMETEROL 250-50 INHALER IH SCH ×2 (10:12→20:42)
[2018-10-15] MEDS: GABAPENTIN 100 MG CAPSULE PO SCH ×2 (10:13→20:42)
[2018-10-15] MEDS: POTASSIUM CHLORIDE 10 MEQ TABLET.ER PO SCH ×2 (10:13→20:42)
[2018-10-15] MEDS: FUROSEMIDE 40 MG TABLET PO SCH (10:13)
[2018-10-15] MEDS: FERROUS SULFATE 325 MG TABLET PO SCH ×2 (10:13→20:42)
[2018-10-15] MEDS: CALCIUM/VIT D 500MG/200 UNIT TABLET PO SCH (10:13)
[2018-10-15] MEDS: METOPROLOL TARTRATE 25 MG TABLET PO SCH ×2 (10:14→20:41)
[2018-10-15] MEDS: hydroCHLOROthiazide 25 MG TABLET PO SCH (10:14)
[2018-10-15] MEDS: LISINOPRIL 10 MG TABLET PO SCH (10:15)
[2018-10-15] MEDS: RIVAROXABAN 15 MG TABLET PO SCH (18:14)
[2018-10-16] MEDS: HYDROcodone /APAP 5/325 1 EACH TABLET PO PRN ×4 (02:08→21:07)
[2018-10-16 05:32] LABS: BASOPHILS % 0.3 % (0.0-1.5); NEUTROPHILS # 3.2 # k/uL (1.4-7.7)
[2018-10-16 05:55] LABS: eGFR (Non-African) 40
[2018-10-16] MEDS: PANTOPRAZOLE SODIUM 40 MG TABLET.DR PO SCH (05:58)
[2018-10-16] MEDS: FERROUS SULFATE 325 MG TABLET PO SCH ×2 (09:05→21:08)
[2018-10-16] MEDS: METOPROLOL TARTRATE 25 MG TABLET PO SCH ×2 (09:05→21:08)
[2018-10-16] MEDS: FLUTICASONE/SALMETEROL 250-50 INHALER IH SCH ×2 (09:05→21:07)
[2018-10-16] MEDS: hydroCHLOROthiazide 25 MG TABLET PO SCH (09:05)
[2018-10-16] MEDS: POTASSIUM CHLORIDE 10 MEQ TABLET.ER PO SCH ×2 (09:05→21:08)
[2018-10-16] MEDS: CALCIUM/VIT D 500MG/200 UNIT TABLET PO SCH (09:06)
[2018-10-16] MEDS: LISINOPRIL 10 MG TABLET PO SCH (09:06)
[2018-10-16] MEDS: FUROSEMIDE 40 MG TABLET PO SCH (09:06)
[2018-10-16] MEDS: GABAPENTIN 100 MG CAPSULE PO SCH ×2 (09:06→21:07)
[2018-10-16] MEDS: RIVAROXABAN 15 MG TABLET PO SCH (17:07)
[2018-10-17] MEDS: HYDROcodone /APAP 5/325 1 EACH TABLET PO PRN ×3 (02:54→20:31)
[2018-10-17] MEDS: PANTOPRAZOLE SODIUM 40 MG TABLET.DR PO SCH (06:33)
[2018-10-17] MEDS: FLUTICASONE/SALMETEROL 250-50 INHALER IH SCH ×2 (08:53→20:27)
[2018-10-17] MEDS: FERROUS SULFATE 325 MG TABLET PO SCH ×2 (08:54→20:27)
[2018-10-17] MEDS: POTASSIUM CHLORIDE 10 MEQ TABLET.ER PO SCH ×2 (08:55→20:27)
[2018-10-17] MEDS: FUROSEMIDE 40 MG TABLET PO SCH (08:55)
[2018-10-17] MEDS: GABAPENTIN 100 MG CAPSULE PO SCH ×2 (08:55→20:27)
[2018-10-17] MEDS: CALCIUM/VIT D 500MG/200 UNIT TABLET PO SCH (08:56)
[2018-10-17] MEDS: METOPROLOL TARTRATE 25 MG TABLET PO SCH ×2 (09:33→20:27)
[2018-10-17] MEDS: LISINOPRIL 10 MG TABLET PO SCH (09:34)
[2018-10-17] MEDS: hydroCHLOROthiazide 25 MG TABLET PO SCH (11:08)
[2018-10-17] MEDS: CITALOPRAM HYDROBROMIDE 20 MG TABLET PO SCH (14:37)
[2018-10-17] MEDS: RIVAROXABAN 15 MG TABLET PO SCH (17:23)
[2018-10-18] MEDS: PANTOPRAZOLE SODIUM 40 MG TABLET.DR PO SCH (06:07)
[2018-10-18] MEDS: FLUTICASONE/SALMETEROL 250-50 INHALER IH SCH ×2 (08:29→20:54)
[2018-10-18] MEDS: CITALOPRAM HYDROBROMIDE 20 MG TABLET PO SCH (08:33)
[2018-10-18] MEDS: FERROUS SULFATE 325 MG TABLET PO SCH ×2 (08:33→20:57)
[2018-10-18] MEDS: POTASSIUM CHLORIDE 10 MEQ TABLET.ER PO SCH ×2 (08:33→20:57)
[2018-10-18] MEDS: CALCIUM/VIT D 500MG/200 UNIT TABLET PO SCH (08:34)
[2018-10-18] MEDS: GABAPENTIN 100 MG CAPSULE PO SCH ×2 (08:34→20:57)
[2018-10-18] MEDS: FUROSEMIDE 40 MG TABLET PO SCH (08:34)
[2018-10-18] MEDS: METOPROLOL TARTRATE 25 MG TABLET PO SCH ×2 (08:38→21:07)
[2018-10-18] MEDS: hydroCHLOROthiazide 25 MG TABLET PO SCH (08:38)
[2018-10-18] MEDS: LISINOPRIL 10 MG TABLET PO SCH (08:38)
[2018-10-18] MEDS: HYDROcodone /APAP 5/325 1 EACH TABLET PO PRN (09:00)
--- NOTE | 2018-10-18 13:12 | Inpatient Progress Note ---
Subjective - Required Recertification Statement I anticipate X number of days because-include discharge plan: 5 - Review of Systems Events since last encounter: Lisette has abruptly had markedly decreased tolerance to therapy due to right knee pain. She says that he pain was pretty well controlled, but when she started to do therapy yesterday afternoon and today, that she began to have markedly increased pain. General: Denies: Chills HEENT: Denies: Head Aches, Visual Changes Pulmonary: Denies: Dyspnea Cardiovascular: Denies: Chest Pain, Palpitations Gastrointestinal: Denies: Nausea, Vomiting Genitourinary: Denies: Dysuria Musculoskeletal: Leg Pain (right knee) Neurological: Weakness Objective - Exam Vitals and I&O: Vital Signs Temp 98.3 F 10/18/18 09:00 Pulse 78 10/18/18 09:00 Resp 18 10/18/18 09:00 BP 105/56 10/18/18 09:00 Pulse Ox 95 10/18/18 09:00 Intake & Output 10/17/18 10/18/18 10/18/18 23:59 11:59 23:59 Intake Total 240 360 Balance 240 360 Intake: Oral 240 360 Other: Voiding Method Toilet Bedside Commode # Voids 1 # Bowel Movements 1 0 General: Alert, Oriented to Person, Oriented to Place, Oriented to Time, Cooperative, Moderate distress HEENT: Atraumatic, PERRLA, EOMI Neck: Supple, No JVD Lungs: Clear to auscultation Cardiovascular: Regular rate Abdomen: Normal bowel sounds Extremities: Other (marked pain with ROM of the right knee, it is not warm) Neurological: No: Normal gait Psych/Mental Status: Mental status NL - Results Results: Laboratory Results WBC 5.80 K/ul (4.00-12.00) 10/16/18 06:00 RBC 2.87 M/ul (3.90-5.20) L 10/16/18 06:00 Hgb 9.0 g/dL (11.5-16.0) L 10/16/18 06:00 Hct 27.4 % (34.5-46.5) L 10/16/18 06:00 MCV 96.0 fl (80.0-100.0) 10/16/18 06:00 MCH 31.3 pg (28.0-34.0) 10/16/18 06:00 MCHC 32.7 g/dL (30.0-36.0) 10/16/18 06:00 RDW 13.8 % (11.3-14.3) 10/16/18 06:00 Plt Count 134 K/mm3 (130-400) 10/16/18 06:00 Neut % (Auto) 55.6 % (39.0-79.0) 10/16/18 06:00 Lymph % (Auto) 27.8 % (16.0-50.0) 10/16/18 06:00 [place] % (Auto) 11.8 % (0.0-11.0) H 10/16/18 06:00 Eos % (Auto) 4.5 % (0.0-6.8) 10/16/18 06:00 Baso % (Auto) 0.3 % (0.0-1.5) 10/16/18 06:00 Neut # (Auto) 3.2 # k/uL (1.4-7.7) 10/16/18 06:00 Lymph # (Auto) 1.6 # k/uL (0.6-4.0) 10/16/18 06:00 [place] # (Auto) 0.7 # k/uL (0.0-0.9) 10/16/18 06:00 Eos # (Auto) 0.3 # k/uL (0.0-0.6) 10/16/18 06:00 Baso # (Auto) 0.0 # k/uL (0.0-0.5) 10/16/18 06:00 Sodium 138 mmol/L (137-145) 10/16/18 06:00 Potassium 4.2 mmol/L (3.5-5.1) 10/16/18 06:00 Chloride 102 mmol/L (98-107) 10/16/18 06:00 Carbon Dioxide 27 mmol/L (22-30) 10/16/18 06:00 Anion Gap 13.2 10/16/18 06:00 BUN 36 mg/dL (7-17) H 10/16/18 06:00 Creatinine 1.39 mg/dL (0.52-1.04) H 10/16/18 06:00 Estimated Creat Clear 57 10/16/18 06:00 Est GFR ( Amer) > 60 (60-) 10/16/18 06:00 Est GFR (Non-Af Amer) 40 (60-) L 10/16/18 06:00 Glucose 106 mg/dL (74-106) 10/16/18 06:00 Calcium 9.1 mg/dL (8.4-10.2) 10/16/18 06:00 Total Bilirubin 0.5 mg/dL (0.2-1.3) 10/16/18 06:00 AST 55 U/L (15-46) H 10/16/18 06:00 ALT 27 U/L (13-69) 10/16/18 06:00 Alkaline Phosphatase 49 U/L (38-126) 10/16/18 06:00 NT-Pro-B Natriuret Pep 788.6 pg/mL (11.1-125.0) H 10/16/18 06:00 Total Protein 5.9 g/dL (6.3-8.2) L 10/16/18 06:00 Albumin 2.9 g/dL (3.5-5.0) L 10/16/18 06:00 Assessment/Plan - Assessment/Plan (1) Depression Status: Acute Current Visit: Yes Qualifiers: Depression Type: major depressive disorder Major depression recurrence: recurrent Active/Remission status: currently active Major depression episode severity: moderate Qualified Code(s): F33.1 - Major depressive disorder, recurrent, moderate Assessment: Have started on citalopram (2) Osteoarthritis, knee Status: Chronic Current Visit: Yes Qualifiers: Osteoarthritis type: primary Assessment: Start colchicine Increased pain medication
[2018-10-18] MEDS: PROBENECID/COLCHICINE 500-0.5 MG TABLET PO SCH ×2 (14:55→20:57)
[2018-10-18] MEDS: RIVAROXABAN 15 MG TABLET PO SCH (17:12)
[2018-10-19] MEDS: PANTOPRAZOLE SODIUM 40 MG TABLET.DR PO SCH (06:12)
[2018-10-19] MEDS ORDERED: PROBENECID/COLCHICINE 500-0.5 MG TABLET PO ONE (08:16)
[2018-10-19] MEDS: FLUTICASONE/SALMETEROL 250-50 INHALER IH SCH ×2 (08:23→20:35)
[2018-10-19] MEDS: PROBENECID/COLCHICINE 500-0.5 MG TABLET PO SCH ×2 (08:24→20:34)
[2018-10-19] MEDS: POTASSIUM CHLORIDE 10 MEQ TABLET.ER PO SCH ×2 (08:25→20:34)
[2018-10-19] MEDS: CALCIUM/VIT D 500MG/200 UNIT TABLET PO SCH (08:25)
[2018-10-19] MEDS: LISINOPRIL 10 MG TABLET PO SCH (08:25)
[2018-10-19] MEDS: FUROSEMIDE 40 MG TABLET PO SCH (08:25)
[2018-10-19] MEDS: CITALOPRAM HYDROBROMIDE 20 MG TABLET PO SCH (08:25)
[2018-10-19] MEDS: GABAPENTIN 100 MG CAPSULE PO SCH ×2 (08:25→20:35)
[2018-10-19] MEDS: FERROUS SULFATE 325 MG TABLET PO SCH ×2 (08:25→20:34)
[2018-10-19] MEDS: hydroCHLOROthiazide 25 MG TABLET PO SCH (08:25)
[2018-10-19] MEDS: METOPROLOL TARTRATE 25 MG TABLET PO SCH ×2 (08:29→20:35)
[2018-10-19] MEDS: RIVAROXABAN 15 MG TABLET PO SCH (17:33)
[2018-10-20] MEDS: PANTOPRAZOLE SODIUM 40 MG TABLET.DR PO SCH (06:02)
[2018-10-20] MEDS: FUROSEMIDE 40 MG TABLET PO SCH (08:52)
[2018-10-20] MEDS: GABAPENTIN 100 MG CAPSULE PO SCH ×2 (08:52→20:11)
[2018-10-20] MEDS: FERROUS SULFATE 325 MG TABLET PO SCH ×2 (08:53→20:15)
[2018-10-20] MEDS: CALCIUM/VIT D 500MG/200 UNIT TABLET PO SCH (08:54)
[2018-10-20] MEDS: CITALOPRAM HYDROBROMIDE 20 MG TABLET PO SCH (08:54)
[2018-10-20] MEDS: POTASSIUM CHLORIDE 10 MEQ TABLET.ER PO SCH ×2 (08:54→20:11)
[2018-10-20] MEDS: METOPROLOL TARTRATE 25 MG TABLET PO SCH ×2 (08:54→20:11)
[2018-10-20] MEDS: LISINOPRIL 10 MG TABLET PO SCH (08:55)
[2018-10-20] MEDS: hydroCHLOROthiazide 25 MG TABLET PO SCH (08:55)
[2018-10-20] MEDS: PROBENECID/COLCHICINE 500-0.5 MG TABLET PO SCH ×2 (08:55→20:13)
[2018-10-20] MEDS: FLUTICASONE/SALMETEROL 250-50 INHALER IH SCH ×2 (08:56→20:13)
[2018-10-20] MEDS: RIVAROXABAN 15 MG TABLET PO SCH (17:27)
[2018-10-21] MEDS: PANTOPRAZOLE SODIUM 40 MG TABLET.DR PO SCH (05:46)
[2018-10-21] MEDS: GABAPENTIN 100 MG CAPSULE PO SCH ×2 (09:50→20:25)
[2018-10-21] MEDS: POTASSIUM CHLORIDE 10 MEQ TABLET.ER PO SCH ×2 (09:50→20:24)
[2018-10-21] MEDS: PROBENECID/COLCHICINE 500-0.5 MG TABLET PO SCH ×2 (09:50→20:25)
[2018-10-21] MEDS: CALCIUM/VIT D 500MG/200 UNIT TABLET PO SCH (09:50)
[2018-10-21] MEDS: DOCUSATE SODIUM 100 MG CAPSULE PO SCH ×2 (09:50→20:25)
[2018-10-21] MEDS: FERROUS SULFATE 325 MG TABLET PO SCH ×2 (09:50→20:24)
[2018-10-21] MEDS: LISINOPRIL 10 MG TABLET PO SCH (09:51)
[2018-10-21] MEDS: FLUTICASONE/SALMETEROL 250-50 INHALER IH SCH ×2 (09:51→20:24)
[2018-10-21] MEDS: hydroCHLOROthiazide 25 MG TABLET PO SCH (09:51)
[2018-10-21] MEDS: CITALOPRAM HYDROBROMIDE 20 MG TABLET PO SCH (09:51)
[2018-10-21] MEDS: METOPROLOL TARTRATE 25 MG TABLET PO SCH ×2 (09:51→20:24)
[2018-10-21] MEDS: FUROSEMIDE 40 MG TABLET PO SCH (09:53)
[2018-10-21] MEDS: POLYETHYLENE GLYCOL 3350 17 GM POWD.PACK PO SCH (10:01)
[2018-10-21] MEDS: RIVAROXABAN 15 MG TABLET PO SCH (17:45)
[2018-10-22] MEDS: PANTOPRAZOLE SODIUM 40 MG TABLET.DR PO SCH (05:52)
[2018-10-22] MEDS: FLUTICASONE/SALMETEROL 250-50 INHALER IH SCH ×2 (07:52→20:43)
[2018-10-22] MEDS: METOPROLOL TARTRATE 25 MG TABLET PO SCH ×2 (07:54→20:44)
[2018-10-22] MEDS: FERROUS SULFATE 325 MG TABLET PO SCH ×2 (07:54→20:43)
[2018-10-22] MEDS: FUROSEMIDE 40 MG TABLET PO SCH (07:55)
[2018-10-22] MEDS: hydroCHLOROthiazide 25 MG TABLET PO SCH (07:55)
[2018-10-22] MEDS: POTASSIUM CHLORIDE 10 MEQ TABLET.ER PO SCH ×2 (07:55→20:44)
[2018-10-22] MEDS: GABAPENTIN 100 MG CAPSULE PO SCH ×2 (07:56→20:44)
[2018-10-22] MEDS: LISINOPRIL 10 MG TABLET PO SCH (07:56)
[2018-10-22] MEDS: CALCIUM/VIT D 500MG/200 UNIT TABLET PO SCH (07:56)
[2018-10-22] MEDS: PROBENECID/COLCHICINE 500-0.5 MG TABLET PO SCH ×2 (07:57→20:44)
[2018-10-22] MEDS: CITALOPRAM HYDROBROMIDE 20 MG TABLET PO SCH (07:57)
[2018-10-22] MEDS: DOCUSATE SODIUM 100 MG CAPSULE PO SCH ×2 (07:58→20:43)
[2018-10-22] MEDS: POLYETHYLENE GLYCOL 3350 17 GM POWD.PACK PO SCH (12:24)
[2018-10-22] MEDS: RIVAROXABAN 15 MG TABLET PO SCH (17:15)
[2018-10-23] MEDS: PANTOPRAZOLE SODIUM 40 MG TABLET.DR PO SCH (05:50)
[2018-10-23] MEDS: POTASSIUM CHLORIDE 10 MEQ TABLET.ER PO SCH ×2 (09:08→21:26)
[2018-10-23] MEDS: FLUTICASONE/SALMETEROL 250-50 INHALER IH SCH ×2 (09:08→21:25)
[2018-10-23] MEDS: FERROUS SULFATE 325 MG TABLET PO SCH ×2 (09:08→21:26)
[2018-10-23] MEDS: CITALOPRAM HYDROBROMIDE 20 MG TABLET PO SCH (09:08)
[2018-10-23] MEDS: CALCIUM/VIT D 500MG/200 UNIT TABLET PO SCH (09:08)
[2018-10-23] MEDS: GABAPENTIN 100 MG CAPSULE PO SCH ×2 (09:09→21:26)
[2018-10-23] MEDS: hydroCHLOROthiazide 25 MG TABLET PO SCH (09:09)
[2018-10-23] MEDS: PROBENECID/COLCHICINE 500-0.5 MG TABLET PO SCH ×2 (09:09→21:26)
[2018-10-23] MEDS: DOCUSATE SODIUM 100 MG CAPSULE PO SCH ×2 (09:09→21:26)
[2018-10-23] MEDS: FUROSEMIDE 40 MG TABLET PO SCH (09:09)
[2018-10-23] MEDS: LISINOPRIL 10 MG TABLET PO SCH (09:10)
[2018-10-23] MEDS: METOPROLOL TARTRATE 25 MG TABLET PO SCH ×2 (09:10→21:26)
[2018-10-23] MEDS: POLYETHYLENE GLYCOL 3350 17 GM POWD.PACK PO SCH (11:32)
[2018-10-23] MEDS: RIVAROXABAN 15 MG TABLET PO SCH (16:54)
[2018-10-24] MEDS: PANTOPRAZOLE SODIUM 40 MG TABLET.DR PO SCH (06:26)
[2018-10-24] MEDS: FLUTICASONE/SALMETEROL 250-50 INHALER IH SCH ×2 (08:30→21:04)
[2018-10-24] MEDS: CALCIUM/VIT D 500MG/200 UNIT TABLET PO SCH (08:31)
[2018-10-24] MEDS: PROBENECID/COLCHICINE 500-0.5 MG TABLET PO SCH ×2 (08:31→21:05)
[2018-10-24] MEDS: FERROUS SULFATE 325 MG TABLET PO SCH ×2 (08:31→21:05)
[2018-10-24] MEDS: POTASSIUM CHLORIDE 10 MEQ TABLET.ER PO SCH ×2 (08:32→21:05)
[2018-10-24] MEDS: DOCUSATE SODIUM 100 MG CAPSULE PO SCH ×2 (08:32→21:05)
[2018-10-24] MEDS: CITALOPRAM HYDROBROMIDE 20 MG TABLET PO SCH (08:32)
[2018-10-24] MEDS: GABAPENTIN 100 MG CAPSULE PO SCH ×2 (08:32→21:05)
--- NOTE | 2018-10-24 08:36 | Inpatient Progress Note ---
Subjective - Required Recertification Statement I anticipate X number of days because-include discharge plan: 5 - Review of Systems Events since last encounter: Lisette is doing much better with physical therapy. They state that she will likely be discharge by early next week. She says that her right knee is much better with the addition of colchicine. She is eating well, and participating with therapy. General: Denies: Chills HEENT: Denies: Head Aches Pulmonary: Denies: Dyspnea Cardiovascular: Denies: Chest Pain Gastrointestinal: Denies: Nausea, Vomiting Genitourinary: Denies: Dysuria Musculoskeletal: Leg Pain (right knee) Neurological: Denies: Weakness, Change in Speech Objective - Exam Vitals and I&O: Vital Signs Temp 97.7 F 10/23/18 21:00 Pulse 70 10/23/18 21:00 Resp 18 10/23/18 21:00 BP 128/63 10/23/18 21:00 Pulse Ox 98 10/23/18 21:00 Intake & Output 10/23/18 10/23/18 10/24/18 11:59 23:59 11:59 Intake Total 120 220 300 Output Total 3 Balance 120 217 300 Intake: Oral 120 220 300 Output: Urine 3 Other: Voiding Method Toilet Toilet # Voids 2 # Bowel Movements 1 0 0 General: Alert, Oriented to Person, Oriented to Place, Oriented to Time, Obese HEENT: Atraumatic, PERRLA, EOMI Neck: Supple, No JVD Lungs: Clear to auscultation. No: Respiratory Distress Cardiovascular: Regular rate Abdomen: Normal bowel sounds Extremities: No clubbing, No cyanosis, No edema, Other (right knee still painful with ROM, but less warm) Skin: Normal Neurological: Normal speech, Cranial nerves 3-12 NL, Generalized Weakness Psych/Mental Status: Mental status NL - Results Results: Laboratory Results WBC 5.80 K/ul (4.00-12.00) 10/16/18 06:00 RBC 2.87 M/ul (3.90-5.20) L 10/16/18 06:00 Hgb 9.0 g/dL (11.5-16.0) L 10/16/18 06:00 Hct 27.4 % (34.5-46.5) L 10/16/18 06:00 MCV 96.0 fl (80.0-100.0) 10/16/18 06:00 MCH 31.3 pg (28.0-34.0) 10/16/18 06:00 MCHC 32.7 g/dL (30.0-36.0) 10/16/18 06:00 RDW 13.8 % (11.3-14.3) 10/16/18 06:00 Plt Count 134 K/mm3 (130-400) 10/16/18 06:00 Neut % (Auto) 55.6 % (39.0-79.0) 10/16/18 06:00 Lymph % (Auto) 27.8 % (16.0-50.0) 10/16/18 06:00 [place] % (Auto) 11.8 % (0.0-11.0) H 10/16/18 06:00 Eos % (Auto) 4.5 % (0.0-6.8) 10/16/18 06:00 Baso % (Auto) 0.3 % (0.0-1.5) 10/16/18 06:00 Neut # (Auto) 3.2 # k/uL (1.4-7.7) 10/16/18 06:00 Lymph # (Auto) 1.6 # k/uL (0.6-4.0) 10/16/18 06:00 [place] # (Auto) 0.7 # k/uL (0.0-0.9) 10/16/18 06:00 Eos # (Auto) 0.3 # k/uL (0.0-0.6) 10/16/18 06:00 Baso # (Auto) 0.0 # k/uL (0.0-0.5) 10/16/18 06:00 Sodium 138 mmol/L (137-145) 10/16/18 06:00 Potassium 4.2 mmol/L (3.5-5.1) 10/16/18 06:00 Chloride 102 mmol/L (98-107) 10/16/18 06:00 Carbon Dioxide 27 mmol/L (22-30) 10/16/18 06:00 Anion Gap 13.2 10/16/18 06:00 BUN 36 mg/dL (7-17) H 10/16/18 06:00 Creatinine 1.39 mg/dL (0.52-1.04) H 10/16/18 06:00 Estimated Creat Clear 57 10/16/18 06:00 Est GFR ( Amer) > 60 (60-) 10/16/18 06:00 Est GFR (Non-Af Amer) 40 (60-) L 10/16/18 06:00 Glucose 106 mg/dL (74-106) 10/16/18 06:00 Calcium 9.1 mg/dL (8.4-10.2) 10/16/18 06:00 Total Bilirubin 0.5 mg/dL (0.2-1.3) 10/16/18 06:00 AST 55 U/L (15-46) H 10/16/18 06:00 ALT 27 U/L (13-69) 10/16/18 06:00 Alkaline Phosphatase 49 U/L (38-126) 10/16/18 06:00 NT-Pro-B Natriuret Pep 788.6 pg/mL (11.1-125.0) H 10/16/18 06:00 Total Protein 5.9 g/dL (6.3-8.2) L 10/16/18 06:00 Albumin 2.9 g/dL (3.5-5.0) L 10/16/18 06:00 Assessment/Plan - Assessment/Plan (1) Depression Status: Acute Current Visit: Yes Qualifiers: Depression Type: major depressive disorder Major depression recurrence: recurrent Active/Remission status: currently active Major depression episode severity: moderate Qualified Code(s): F33.1 - Major depressive disorder, recurrent, moderate Assessment: She is on citalopram, which will be continued on discharge (2) Osteoarthritis, knee Status: Chronic Current Visit: Yes Qualifiers: Osteoarthritis type: primary Assessment: Continue PT, colchicine
[2018-10-24] MEDS: hydroCHLOROthiazide 25 MG TABLET PO SCH (09:30)
[2018-10-24] MEDS: LISINOPRIL 10 MG TABLET PO SCH (09:31)
[2018-10-24] MEDS: FUROSEMIDE 40 MG TABLET PO SCH (09:31)
[2018-10-24] MEDS: METOPROLOL TARTRATE 25 MG TABLET PO SCH ×2 (09:31→21:05)
[2018-10-24] MEDS: POLYETHYLENE GLYCOL 3350 17 GM POWD.PACK PO SCH (11:37)
[2018-10-24] MEDS: RIVAROXABAN 15 MG TABLET PO SCH (16:53)
[2018-10-25] MEDS: PANTOPRAZOLE SODIUM 40 MG TABLET.DR PO SCH (06:21)
[2018-10-25 06:58] LABS: eGFR (Non-African) 37
[2018-10-25] MEDS: CITALOPRAM HYDROBROMIDE 20 MG TABLET PO SCH (09:12)
[2018-10-25] MEDS: FLUTICASONE/SALMETEROL 250-50 INHALER IH SCH ×2 (09:12→21:07)
[2018-10-25] MEDS: DOCUSATE SODIUM 100 MG CAPSULE PO SCH ×2 (09:13→21:18)
[2018-10-25] MEDS: PROBENECID/COLCHICINE 500-0.5 MG TABLET PO SCH ×2 (09:13→21:18)
[2018-10-25] MEDS: POTASSIUM CHLORIDE 10 MEQ TABLET.ER PO SCH ×2 (09:13→20:44)
[2018-10-25] MEDS: FERROUS SULFATE 325 MG TABLET PO SCH ×2 (09:13→20:44)
[2018-10-25] MEDS: GABAPENTIN 100 MG CAPSULE PO SCH ×2 (09:13→20:45)
[2018-10-25] MEDS: CALCIUM/VIT D 500MG/200 UNIT TABLET PO SCH (09:14)
[2018-10-25] MEDS: hydroCHLOROthiazide 25 MG TABLET PO SCH (09:17)
[2018-10-25] MEDS: FUROSEMIDE 40 MG TABLET PO SCH (09:18)
[2018-10-25] MEDS: LISINOPRIL 10 MG TABLET PO SCH (09:19)
[2018-10-25] MEDS: METOPROLOL TARTRATE 25 MG TABLET PO SCH ×2 (09:19→20:47)
[2018-10-25] MEDS: POLYETHYLENE GLYCOL 3350 17 GM POWD.PACK PO SCH (11:14)
[2018-10-25] MEDS: RIVAROXABAN 15 MG TABLET PO SCH (17:05)
[2018-10-26] MEDS: PANTOPRAZOLE SODIUM 40 MG TABLET.DR PO SCH (06:12)
[2018-10-26] MEDS: FUROSEMIDE 40 MG TABLET PO SCH (08:59)
[2018-10-26] MEDS: POTASSIUM CHLORIDE 10 MEQ TABLET.ER PO SCH ×2 (08:59→21:22)
[2018-10-26] MEDS: DOCUSATE SODIUM 100 MG CAPSULE PO SCH ×2 (09:00→21:22)
[2018-10-26] MEDS: FERROUS SULFATE 325 MG TABLET PO SCH ×2 (09:00→21:22)
[2018-10-26] MEDS: GABAPENTIN 100 MG CAPSULE PO SCH ×2 (09:00→21:23)
[2018-10-26] MEDS: LISINOPRIL 10 MG TABLET PO SCH (09:00)
[2018-10-26] MEDS: PROBENECID/COLCHICINE 500-0.5 MG TABLET PO SCH ×2 (09:01→21:22)
[2018-10-26] MEDS: METOPROLOL TARTRATE 25 MG TABLET PO SCH ×2 (09:01→21:23)
[2018-10-26] MEDS: CITALOPRAM HYDROBROMIDE 20 MG TABLET PO SCH (09:01)
[2018-10-26] MEDS: CALCIUM/VIT D 500MG/200 UNIT TABLET PO SCH (09:01)
[2018-10-26] MEDS: hydroCHLOROthiazide 25 MG TABLET PO SCH (09:01)
[2018-10-26] MEDS: FLUTICASONE/SALMETEROL 250-50 INHALER IH SCH ×2 (09:03→21:22)
[2018-10-26] MEDS: POLYETHYLENE GLYCOL 3350 17 GM POWD.PACK PO SCH (11:56)
[2018-10-26] MEDS: RIVAROXABAN 15 MG TABLET PO SCH (17:45)
[2018-10-27] MEDS: PANTOPRAZOLE SODIUM 40 MG TABLET.DR PO SCH (06:24)
[2018-10-27] MEDS: FLUTICASONE/SALMETEROL 250-50 INHALER IH SCH ×2 (09:46→20:58)
[2018-10-27] MEDS: PROBENECID/COLCHICINE 500-0.5 MG TABLET PO SCH ×2 (09:47→20:59)
[2018-10-27] MEDS: GABAPENTIN 100 MG CAPSULE PO SCH ×2 (09:47→20:59)
[2018-10-27] MEDS: FUROSEMIDE 40 MG TABLET PO SCH (09:47)
[2018-10-27] MEDS: POTASSIUM CHLORIDE 10 MEQ TABLET.ER PO SCH ×2 (09:47→20:59)
[2018-10-27] MEDS: CITALOPRAM HYDROBROMIDE 20 MG TABLET PO SCH (09:47)
[2018-10-27] MEDS: CALCIUM/VIT D 500MG/200 UNIT TABLET PO SCH (09:47)
[2018-10-27] MEDS: DOCUSATE SODIUM 100 MG CAPSULE PO SCH ×2 (09:47→20:59)
[2018-10-27] MEDS: hydroCHLOROthiazide 25 MG TABLET PO SCH (09:47)
[2018-10-27] MEDS: FERROUS SULFATE 325 MG TABLET PO SCH ×2 (09:47→20:59)
[2018-10-27] MEDS: METOPROLOL TARTRATE 25 MG TABLET PO SCH ×2 (09:47→20:59)
[2018-10-27] MEDS: LISINOPRIL 10 MG TABLET PO SCH (09:48)
[2018-10-27] MEDS: POLYETHYLENE GLYCOL 3350 17 GM POWD.PACK PO SCH (11:58)
[2018-10-27] MEDS: RIVAROXABAN 15 MG TABLET PO SCH (17:40)
[2018-10-28] MEDS: PANTOPRAZOLE SODIUM 40 MG TABLET.DR PO SCH (06:03)
[2018-10-28] MEDS: POTASSIUM CHLORIDE 10 MEQ TABLET.ER PO SCH ×2 (09:26→20:36)
[2018-10-28] MEDS: GABAPENTIN 100 MG CAPSULE PO SCH ×2 (09:26→20:35)
[2018-10-28] MEDS: PROBENECID/COLCHICINE 500-0.5 MG TABLET PO SCH ×2 (09:26→20:37)
[2018-10-28] MEDS: FLUTICASONE/SALMETEROL 250-50 INHALER IH SCH ×2 (09:26→20:37)
[2018-10-28] MEDS: FERROUS SULFATE 325 MG TABLET PO SCH ×2 (09:26→20:36)
[2018-10-28] MEDS: FUROSEMIDE 40 MG TABLET PO SCH (09:27)
[2018-10-28] MEDS: CALCIUM/VIT D 500MG/200 UNIT TABLET PO SCH (09:27)
[2018-10-28] MEDS: DOCUSATE SODIUM 100 MG CAPSULE PO SCH ×2 (09:27→20:36)
[2018-10-28] MEDS: hydroCHLOROthiazide 25 MG TABLET PO SCH (09:27)
[2018-10-28] MEDS: CITALOPRAM HYDROBROMIDE 20 MG TABLET PO SCH (09:27)
[2018-10-28] MEDS: LISINOPRIL 10 MG TABLET PO SCH (09:29)
[2018-10-28] MEDS: METOPROLOL TARTRATE 25 MG TABLET PO SCH ×2 (09:29→20:35)
[2018-10-28] MEDS: POLYETHYLENE GLYCOL 3350 17 GM POWD.PACK PO SCH (11:55)
[2018-10-28] MEDS: RIVAROXABAN 15 MG TABLET PO SCH (17:34)
[2018-10-29] MEDS: PANTOPRAZOLE SODIUM 40 MG TABLET.DR PO SCH (06:16)
[2018-10-29] MEDS: GABAPENTIN 100 MG CAPSULE PO SCH ×2 (08:44→20:41)
[2018-10-29] MEDS: DOCUSATE SODIUM 100 MG CAPSULE PO SCH ×2 (08:44→20:40)
[2018-10-29] MEDS: FERROUS SULFATE 325 MG TABLET PO SCH ×2 (08:45→20:40)
[2018-10-29] MEDS: FUROSEMIDE 40 MG TABLET PO SCH (08:45)
[2018-10-29] MEDS: PROBENECID/COLCHICINE 500-0.5 MG TABLET PO SCH ×2 (08:45→20:40)
[2018-10-29] MEDS: POTASSIUM CHLORIDE 10 MEQ TABLET.ER PO SCH ×2 (08:45→20:41)
[2018-10-29] MEDS: CITALOPRAM HYDROBROMIDE 20 MG TABLET PO SCH (08:45)
[2018-10-29] MEDS: CALCIUM/VIT D 500MG/200 UNIT TABLET PO SCH (08:45)
[2018-10-29] MEDS: FLUTICASONE/SALMETEROL 250-50 INHALER IH SCH ×2 (08:46→20:40)
[2018-10-29] MEDS: METOPROLOL TARTRATE 25 MG TABLET PO SCH ×2 (08:46→20:42)
[2018-10-29] MEDS: hydroCHLOROthiazide 25 MG TABLET PO SCH (08:46)
[2018-10-29] MEDS: LISINOPRIL 10 MG TABLET PO SCH (08:47)
[2018-10-29] MEDS: POLYETHYLENE GLYCOL 3350 17 GM POWD.PACK PO SCH (11:17)
[2018-10-29] MEDS: RIVAROXABAN 15 MG TABLET PO SCH (17:46)
[2018-10-30] MEDS: PANTOPRAZOLE SODIUM 40 MG TABLET.DR PO SCH (05:47)
[2018-10-30] MEDS: GABAPENTIN 100 MG CAPSULE PO SCH (09:29)
[2018-10-30] MEDS: FUROSEMIDE 40 MG TABLET PO SCH (09:29)
[2018-10-30] MEDS: CALCIUM/VIT D 500MG/200 UNIT TABLET PO SCH (09:29)
[2018-10-30] MEDS: POTASSIUM CHLORIDE 10 MEQ TABLET.ER PO SCH (09:29)
[2018-10-30] MEDS: PROBENECID/COLCHICINE 500-0.5 MG TABLET PO SCH (09:29)
[2018-10-30] MEDS: DOCUSATE SODIUM 100 MG CAPSULE PO SCH (09:29)
[2018-10-30] MEDS: CITALOPRAM HYDROBROMIDE 20 MG TABLET PO SCH (09:29)
[2018-10-30] MEDS: FERROUS SULFATE 325 MG TABLET PO SCH (09:29)
[2018-10-30] MEDS: METOPROLOL TARTRATE 25 MG TABLET PO SCH (09:31)
[2018-10-30] MEDS: hydroCHLOROthiazide 25 MG TABLET PO SCH (09:33)
[2018-10-30] MEDS: LISINOPRIL 10 MG TABLET PO SCH (09:34)
[2018-10-30] MEDS: FLUTICASONE/SALMETEROL 250-50 INHALER IH SCH (09:35)
[2018-10-30] MEDS: POLYETHYLENE GLYCOL 3350 17 GM POWD.PACK PO SCH (11:13)
--- NOTE | 2018-10-30 11:37 | Discharge Summary ---
Discharge Summary - Discharge [facility] Admission Date: 10/12/18 Discharge Date: 10/30/18 Discharge To: Home History of Present Illness: 73 yo female who has a history of atrial fibrillation on anticoagulation therapy, coronary artery disease, essential hypertension, obstructive sleep apnea ( on CPAP), and osteoarthritis. Patient developed some increasing shortness of breath. Patient presented to the emergency room at [facility] in clinic was felt to have congestive heart failure was subsequently admitted. She had a IA work-up and was negative. Patient became weak and it was felt that she would benefit from some PT and OT prior to going home. Patient has been having some swelling to the legs. Patient has had some orthopnic symptoms. patient stated her breathing seem to be stable at this time. Condition at Discharge: Stable Home Medications: Ambulatory Orders Medication Instructions Recorded Acetaminophen with Codeine 1 each PO Q4H PRN MDD 10 TABS 10/23/18 [Tylenol with Codeine #3 Tablet] Albuterol Sulfate [Proair 2 puff IH Q6H PRN 10/23/18 Respiclick] Calcium Carb 600Mg/Vit D-3 400 1 each PO DAILY 10/23/18 [Caltrate with Vit D-3] Ferrous Sulfate [Iron] 325 mg PO BID 10/23/18 Fluticasone/Salmeterol [Advair Hfa 2 puff IH BID 10/23/18 230-21 Mcg Inhaler] Furosemide [Lasix] 40 mg PO DAILY 10/23/18 Gabapentin [Neurontin] 100 mg PO BID 10/23/18 Lisinopril/Hydrochlorothiazide 1 each PO DAILY 10/23/18 [Zestoretic] Metoprolol Tartrate [Lopressor] 25 mg PO BID 10/23/18 Pantoprazole Sodium [Protonix] 40 mg PO 0700 10/23/18 Potassium Chloride [Klor-Con 10] 10 meq PO BID 10/23/18 Rivaroxaban [Xarelto] 15 mg PO 1800 10/23/18 Consultations this Visit: Other (PT/OT) Procedures this Visit: None Allergies/Adverse Reactions: Allergies Allergy/AdvReac Type Severity Reaction Status Date / Time ciprofloxacin AdvReac Severe Shakiness Verified 10/23/18 23:50 Patient Problems: Current Active Problems Problem Status Onset Depression Acute Gait disturbance Acute Asthma Chronic Osteoarthritis, knee Chronic Discharge Summary: Medications on discharge: Os-Reginaldo D 1 by mouth daily Citalopram 20 mg daily Colace 100 mg by mouth two times daily Ferrous sulfate 325 mg by mouth two times daily Advair 50-250 1 puff two times daily Neurontin 200 mg by mouth two times daily Proair inhaler 2 puffs every four hours as needed Protonix 40 mg once a day Miralax 17 grams once a day Potassium chloride 10 meq two times daily Xarelto 14 mg once a day Hold the following medications: Metoprolol, hydrochlorothiazide and lisinopril Follow up in one week with Dr. Crawford
[2018-10-30 14:37] VITALS: BP 112/59
== END 2018-10-30 14:22 | disposition home or self-care (01) | DRG 92 ==
LOC: SOUTH 16:08
PROVIDERS: ADMIT Family Medicine; ATTEND Family Medicine
DX: R26.89 Other abnormalities of gait and mobility (principal); I13.0 Hypertensive heart and chronic kidney disease with heart failure and stage 1 through stage 4 chronic kidney disease, or unspecified chronic kidney disease; N18.4 Chronic kidney disease, stage 4 (severe); F33.1 Major depressive disorder, recurrent, moderate; M17.11 Unilateral primary osteoarthritis, right knee; I48.2 Chronic atrial fibrillation; E66.9 Obesity, unspecified; J45.20 Mild intermittent asthma, uncomplicated; I25.10 Atherosclerotic heart disease of native coronary artery without angina pectoris; I50.9 Heart failure, unspecified; G47.33 Obstructive sleep apnea (adult) (pediatric); Z79.01 Long term (current) use of anticoagulants; Z98.51 Tubal ligation status; Z82.49 Family history of ischemic heart disease and other diseases of the circulatory system; Z80.3 Family history of malignant neoplasm of breast; Z83.2 Family history of diseases of the blood and blood-forming organs and certain disorders involving the immune mechanism; Z88.1 Allergy status to other antibiotic agents; Z68.35 Body mass index [BMI] 35.0-35.9, adult; Z79.51 Long term (current) use of inhaled steroids
CPT/HCPCS: 80053; 83880; 85025; 85027; 97110; 97112; 97116; 97161; 97165; 97530; 97535; A9270

== ENCOUNTER 2018-10-31 14:57 | Inpatient (IN) | payer OTHER ==
--- NOTE | 2018-10-31 15:15 | ED Physician Documentation ---
General Adult - HISTORIAN Historian: patient - HPI Stated Complaint: lower extremity swelling/weight gain Chief Complaint: General Adult Additional Information: Patient presents to ED at the advice of her home health aid. Patient was just discharged yesterday from this hospital where she was a skilled patient. She was admitted to [facility] for knee pain and lower extremity swelling. Patient reports her home health aid stated she had gained 8 lbs, however, this was the first time home health had been to her home. It is unclear what the home health aid was using as a starting weight. Patient states her knee and foot pain has made it difficult for her to ambulate at home. She states she is supposed to have a right total knee replacement. She denies chest pain or shortness of breath. Onset: days ago (1) Timing: still present Severity: moderate - ROS CONST: denies: fever EYES/ENT: denies: problems with vision CVS/RESP: denies: chest pain, shortness of breath GI/: denies: abdominal pain, vomiting, nausea MS/SKIN/LYMPH: leg swelling NEURO/PSYCH: denies: headache, dizziness - PAST HX Past History: CHF, hypertension Other History: none Surgeries/Procedures: none Allergies/Adverse Reactions: Allergies Allergy/AdvReac Type Severity Reaction Status Date / Time ciprofloxacin AdvReac Severe Shakiness Verified 10/31/18 15:35 Home Medications: Ambulatory Orders Medication Instructions Recorded Acetaminophen with Codeine 1 each PO Q4H PRN MDD 10 TABS 10/23/18 [Tylenol with Codeine #3 Tablet] Albuterol Sulfate [Proair 2 puff IH Q6H PRN 10/23/18 Respiclick] Calcium Carb 600Mg/Vit D-3 400 1 each PO DAILY 10/23/18 [Caltrate with Vit D-3] Ferrous Sulfate [Iron] 325 mg PO BID 10/23/18 Fluticasone/Salmeterol [Advair Hfa 2 puff IH BID 10/23/18 230-21 Mcg Inhaler] Furosemide [Lasix] 40 mg PO DAILY 10/23/18 Gabapentin [Neurontin] 100 mg PO BID 10/23/18 Lisinopril/Hydrochlorothiazide 1 each PO DAILY 10/23/18 [Zestoretic] Metoprolol Tartrate [Lopressor] 25 mg PO BID 10/23/18 Pantoprazole Sodium [Protonix] 40 mg PO 0700 10/23/18 Potassium Chloride [Klor-Con 10] 10 meq PO BID 10/23/18 Rivaroxaban [Xarelto] 15 mg PO 1800 10/23/18 - SOCIAL HX Smoking History: non-smoker Alcohol Use: none Drug Use: none - FAMILY HX Family History: No - VITAL SIGNS Vital Signs: Vital Signs Temp Pulse Resp BP Pulse Ox 112/59 10/30/18 11:36 - REVIEWED ASSESSMENTS Nursing Assessment Reviewed: Yes Vitals Reviewed: Yes Progress - Progress Progress: 1625 Patient admits to cough with sputum production starting this morning [address] Crawford for admission, He agrees with admission for bilateral infiltrates. Will give Vanco IV 1 gram and Cefepime IV 1 gram x 1 now. Blood cultures drawn prior to infusion of antibiotics. - EKG/XRAY/CT Comments: [address] elevation ED Results Lab/Radiology - Radiology Radiology Impressions: Report Submission Date: Oct 31, 2018 4:08:26 PM CDT Patient Study Name: RAUDEL FREED Date: Oct 31, 2018 3:33:28 PM CDT Modality Type: DX Gender: F Description: CHEST 2VIEW : 47 Institution: [facility] Physician: CHAPIN ELI Examination: PA and lateral chest. History: Evaluate lung cisneros. SOA, COUGH Comparison exam: 30 October 2017 Findings: PA and lateral views of the chest demonstrates a normal cardiac and mediastinal silhouette. Tortuous aorta. Hilar granuloma. Bilateral interstitial infiltrates with blunting of the lung bases bilaterally. Osseous structures are appropriate for age. Impression: Bilateral infiltrates/effusions. Electronically signed on Oct 31, 2018 4:08:26 PM CDT by: Galileo Burrell General Adult Physical Exam - PHYSICAL EXAM GENERAL APPEARANCE: no distress EENT: BOLA NECK: No: lymphadenopathy RESPIRATORY: no resp distress, breath sounds normal CVS: reg rate & rhythm, heart sounds normal ABDOMEN: soft, normal bowel sounds BACK: normal inspection SKIN: warm/dry, normal color EXTREMITIES: non-tender, edema (+1 lower extremity edema bilaterally to mid tib/fib), tenderness NEURO: oriented X3, mood/affect nml Discharge Clincal Impression: Bilateral pneumonia Qualifiers: Pneumonia type: due to other aerobic Gram-negative bacteria Lung location: lower lobe of lung Qualified Code(s): J15.6 - Pneumonia due to other Gram- negative bacteria Acute exacerbation of CHF (congestive heart failure) Qualifiers: Heart failure type: combined systolic and diastolic Qualified Code(s): I50.43 - Acute on chronic combined systolic (congestive) and diastolic (congestive) heart failure Referrals: Jose Antonio Crawford MD [Primary Care Provider] - 2 Days Decision to Admit: [id number] Date of Decison to Admit: 10/31/18 Decision Time: 16:42
[2018-10-31 16:02] LABS: BASOPHILS % 0.2 % (0.0-1.5); NEUTROPHILS # 2.3 # k/uL (1.4-7.7)
--- NOTE | 2018-10-31 16:16 | Diagnostic Imaging Report ---
CHAPIN ELI [facility] [address] [facility] [address] [place], [place]. [address] Report Submission Date: Oct 31, 2018 4:08:26 PM CDT Patient Study Name: RAUDEL FREED Date: Oct 31, 2018 3:33:28 PM CDT Modality Type: DX Gender: F Description: CHEST 2VIEW : 47 Institution: [facility] Physician: CHAPIN ELI Examination: PA and lateral chest. History: Evaluate lung cisneros. SOA, COUGH Comparison exam: 30 October 2017 Findings: PA and lateral views of the chest demonstrates a normal cardiac and mediastinal silhouette. Tortuous aorta. Hilar granuloma. Bilateral interstitial infiltrates with blunting of the lung bases bilaterally. Osseous structures are appropriate for age. Impression: Bilateral infiltrates/effusions. Electronically signed on Oct 31, 2018 4:08:26 PM CDT by: Galileo GONZALEZ
[2018-10-31 16:24] LABS: eGFR (Non-African) 42
[2018-10-31] MEDS ORDERED: VANCOMYCIN HCL 1 GM in 0.9 % SODIUM CHLORIDE 250 ML IV ONE (16:40)
[2018-10-31] MEDS ORDERED: CEFEPIME HCL 1 GM in 0.9 % SODIUM CHLORIDE 50 ML IV ONE (16:40)
[2018-10-31] MEDS ORDERED: ONDANSETRON HCL/PF 4 MG/ 2ML VIAL IVP PRN (17:49)
[2018-10-31] MEDS ORDERED: SENNOSIDES 8.6 MG TABLET PO PRN (17:49)
[2018-10-31] MEDS ORDERED: VANCOMYCIN HCL 1 GM in 0.9 % SODIUM CHLORIDE 250 ML IV SCH (18:00)
[2018-10-31] MEDS ORDERED: VANCOMYCIN PHARMACY TO DOSE IV NR (18:00)
--- NOTE | 2018-10-31 18:23 | History and Physical Report ---
History of Present Illnes - History of Present Illness Reason for Visit: Bibasilar pneumonia, CHF, anemia History of Present Illness: This is a 73 year old female who was dishcarged from our facility after a skilled stay for new onset CHF and right knee pain, limiting her ability to ambulate. She was doing well prior to discharge, however over the course of the day today, she became more weak, and had more difficulty with breathing. She came to the ER , and was noted to have an elevated BNP, and bilateral basilar infiltrates on chest X ray. She is admitted for IV antibiotics, nebulizer treatments and O2 as needed. - Past Medical History Cardiac: AFIB, CHF, HTN Pulmonary: Asthma, Sleep Apnea (obstructive) Musculoskeletal: Osteoarthritis ENT: Allergic rhinitis Renal/: Chronic renal failure (stage 4) - Past Surgical History Past Surgical History: Tubal Ligation, Other (D&C for post menopausal bleeding) - Past Social History Smoke: No Occupation: retired hairdresser Alcohol: None Drugs: None Lives: Alone Domestic Violence: Negative - Health Maintenance Health Maintenance: Pneumococcal Vaccine Influenza Vaccine: Current for this Influenza Season Pneumonia Vaccine: Yes - Unable to Obtain History Unable to Obtain: No Review of Systems - Review of Systems Constitutional: Weakness, Malaise. negative: Fever, Chills Eyes: negative: pain ENT: negative: Ear Pain, Ear Discharge Respiratory: Shortness of Breath, Wheezing Cardiovascular: negative: Chest Pain Gastrointestinal: negative: Nausea, Vomiting Genitourinary: negative: Dysuria Musculoskeletal: Leg Pain (knee). negative: Neck Pain, Shoulder Pain Skin: negative: Rash Neurological: Weakness, Incoordination. negative: Confusion - Medications/Allergies Allergies/Adverse Reactions: Allergies Allergy/AdvReac Type Severity Reaction Status Date / Time ciprofloxacin AdvReac Severe Shakiness Verified 10/31/18 15:35 Current Inpatient Medications: Current Inpatient Medications Acetaminophen/Codeine Phosphate (Tylenol #3) 1 each PO Q4H PRN PRN Reason: pain Stop: 11/30/18 17:43 Albuterol/Ipratropium (Duoneb) 3 ml NEB Q8 [place] Stop: 11/30/18 20:59 Calcium/Vitamin D (Oscal + D 500mg/200unit) 1 each PO BID [place] Stop: 11/30/18 20:59 Docusate Sodium (Colace) 100 mg PO DAILY [place] Stop: 12/01/18 08:59 Ferrous Sulfate (Feosol) 325 mg PO [id number] [facility] Stop: 11/30/18 18:59 Furosemide (Lasix) 40 mg PO DAILY [facility] Stop: 12/01/18 08:59 Gabapentin (Neurontin) 100 mg PO BID [facility] Stop: 11/30/18 20:59 Cefepime HCl 1 gm/ Sodium (Chloride) 50 mls @ 100 mls/hr IV Q12 [place] Stop: 12/01/18 08:59 Vancomycin HCl 1 gm/ Sodium (Chloride) 250 mls @ 250 mls/hr IV Q12H [place] Stop: 11/15/18 08:59 Lisinopril (Prinivil) 10 mg PO DAILY [facility] Stop: 12/01/18 08:59 Metoprolol Tartrate (Lopressor) 25 mg PO BID [facility] Stop: 11/30/18 20:59 Miscellaneous (Pharmacy To Dose Vancomycin) 1 each IV NOW [facility] Stop: 11/30/18 17:59 Ondansetron HCl (Zofran) 4 mg IVP Q6H PRN PRN Reason: Nausea / Vomiting Stop: 11/30/18 17:48 Pantoprazole Sodium (Protonix) 40 mg PO 0700 [facility] Stop: 12/01/18 06:59 Rivaroxaban (Xarelto) 15 mg PO 1800 [facility] Stop: 11/30/18 17:59 Sennosides (Senokot) 8.6 mg PO DAILY PRN PRN Reason: Constipation Stop: 12/01/18 08:59 Exam - Exam Vital Signs: Vital Signs (72 hours) 10/29/18 10/30/18 10/31/18 20:38 11:36 14:58 Temperature 98.8 F Pulse Rate [ 80 Left Pulse ox] Pulse Rate [ Left] Respiratory 21 Rate Blood Pressure 112/59 Blood Pressure 112/59 [Left Arm] Blood Pressure 129/80 136/57 [Right Arm] O2 Sat by Pulse 94 Oximetry 10/31/18 10/31/18 17:30 17:44 Temperature 98.5 F Pulse Rate [ 82 Left Pulse ox] Pulse Rate [ 87 Left] Respiratory 16 18 Rate Blood Pressure Blood Pressure 131/72 [Left Arm] Blood Pressure 129/60 [Right Arm] O2 Sat by Pulse 96 97 Oximetry General: Alert, Oriented to Person, Oriented to Place, Obese HEENT: Atraumatic, PERRLA, EOMI Neck: No: Stridor Lungs: Wheezes, Prolonged Expiration, Decreased Air Movement Cardiovascular: Regular rate Murmur: No: Systolic Murmur Abdomen: Normal bowel sounds, Soft. No: No tenderness Genitourinary: No: Other Male Genitourinary: No: Other Female Genitourinary: No: Other Integumentary: Normal, Warm, Dry Extremities: No clubbing, No cyanosis, Other (2+ edema BLE) Neurological: Normal speech. No: Normal gait Psych/Mental Status: Mental status NL - Laboratory Results Laboratory Results: Laboratory Results 10/31/18 10/31/18 10/31/18 15:50 15:50 15:55 WBC 3.90 L RBC 2.95 L Hgb 8.7 L Hct 26.8 L MCV 91.0 MCH 29.3 MCHC 32.3 RDW 14.9 H Plt Count 234 Neut % (Auto) 59.5 Lymph % (Auto) 23.9 [place] % (Auto) 12.5 H Eos % (Auto) 3.9 Baso % (Auto) 0.2 Neut # (Auto) 2.3 Lymph # (Auto) 0.9 [place] # (Auto) 0.5 Eos # (Auto) 0.2 Baso # (Auto) 0.0 Sodium 140 Potassium 3.5 Chloride 103 Carbon Dioxide 28 Anion Gap 12.5 BUN 16 Creatinine 1.31 H Estimated Creat Clear 62 Est GFR ( Amer) > 60 Est GFR (Non-Af Amer) 42 L Glucose 100 Calcium 9.5 Total Bilirubin 0.5 AST 62 H ALT 40 Alkaline Phosphatase 60 NT-Pro-B Natriuret Pep 1366.8 H Total Protein 5.9 L Albumin 2.8 L Assessment/Plan - Assessment/Plan (1) Anemia Status: Acute Current Visit: Yes Qualifiers: Anemia type: unspecified type Qualified Code(s): D64.9 - Anemia, unspecified Assessment: Will check CBC in am. She is not anemic to allow tranfusion at this time, but will follow. Continue ferrous sulfate (2) Acute exacerbation of CHF (congestive heart failure) Status: Acute Current Visit: Yes Qualifiers: Heart failure type: combined systolic and diastolic Qualified Code(s): I50.43 - Acute on chronic combined systolic (congestive) and diastolic (congestive) heart failure Assessment: She did not take her lasix after discharge, so will restart this. (3) Bilateral pneumonia Status: Acute Current Visit: Yes Qualifiers: Pneumonia type: due to other aerobic Gram-negative bacteria Lung location: lower lobe of lung Qualified Code(s): J15.6 - Pneumonia due to other Gram- negative bacteria Assessment: On vancomycin Plan: Pharmacy to dose. (4) Osteoarthritis, knee Status: Chronic Current Visit: No Qualifiers: Osteoarthritis type: primary Assessment: Will try to get up and ambulate. VTE Assessment - RISK FACTOR SCORE VTE RISK FACTOR SCORES: AGE OVER 60 YEARS, ACUTE INFECTION OTHER THEN SEPSIS, OBESITY - RISK VTE HIGH RISK: SCORE OF 3-4 (RISK PROXIMAL DVT 4-8%) PROPHYLAXIS NEEDED (On Xarelto)
[2018-10-31] MEDS: RIVAROXABAN 15 MG TABLET PO SCH (18:27)
[2018-10-31] MEDS ORDERED: 0.9 % SODIUM CHLORIDE 50 ML IV ONE (18:37)
[2018-10-31] MEDS: FERROUS SULFATE 325 MG TABLET PO SCH (19:15)
[2018-10-31] MEDS: ACETAMINOPHEN WITH CODEINE 300MG/30MG TABLET PO PRN (20:15)
[2018-10-31] MEDS: GABAPENTIN 100 MG CAPSULE PO SCH (20:31)
[2018-10-31] MEDS: CALCIUM/VIT D 500MG/200 UNIT TABLET PO SCH (20:31)
[2018-10-31] MEDS: METOPROLOL TARTRATE 25 MG TABLET PO SCH (20:50)
[2018-10-31] MEDS: IPRATROPIUM/ALBUTEROL SULFATE 3 ML AMPUL.NEB NEB SCH (20:51)
[2018-10-31] MEDS ORDERED: FERROUS SULFATE 325 MG PO SCH (21:00)
[2018-10-31] MEDS ORDERED: SALMETEROL IH SCH (21:00)
[2018-10-31] MEDS ORDERED: FLUTICASONE IH SCH (21:00)
[2018-10-31] MEDS ORDERED: CEFEPIME HCL 1 GM in 0.9 % SODIUM CHLORIDE 50 ML IV SCH (21:00)
[2018-10-31] MEDS ORDERED: HEPARIN SODIUM 5000 UNIT/1 ML SQ SCH (21:00)
[2018-10-31] MEDS: FLUTICASONE/SALMETEROL 250-50 INHALER IH SCH (22:29)
[2018-11-01] MEDS: IPRATROPIUM/ALBUTEROL SULFATE 3 ML AMPUL.NEB NEB SCH ×3 (04:49→21:37)
[2018-11-01] MEDS: PANTOPRAZOLE SODIUM 40 MG TABLET.DR PO SCH (06:43)
[2018-11-01 06:49] LABS: eGFR (Non-African) > 60
[2018-11-01 06:56] LABS: BASOPHILS % 0.4 % (0.0-1.5); NEUTROPHILS # 2.1 # k/uL (1.4-7.7)
--- NOTE | 2018-11-01 07:49 | Inpatient Progress Note ---
Subjective - Required Recertification Statement I anticipate X number of days because-include discharge plan: 2 - Review of Systems Subjective: Patient feels a little better today. Hungry. Objective - Exam Vitals and I&O: Vital Signs Temp 98.2 F 11/01/18 06:00 Pulse 91 H 11/01/18 06:00 Resp 18 11/01/18 06:00 BP 140/66 11/01/18 06:00 Pulse Ox 98 11/01/18 06:00 Intake & Output 10/31/18 10/31/18 11/01/18 11:59 23:59 11:59 Intake Total 240 360 Output Total 375 425 Balance -135 -65 Weight 87.997 kg Intake: Oral 240 360 Output: Urine 375 425 Other: Voiding Method Bedside Commode Bedside Commode # Voids 1 General: Alert, Oriented to Person, Oriented to Place, Oriented to Time, Cooperative, No acute distress Lungs: Rhonchi Cardiovascular: Regular rate - Results Results: Laboratory Results WBC 3.70 K/ul (4.00-12.00) L 11/01/18 06:22 RBC 2.79 M/ul (3.90-5.20) L 11/01/18 06:22 Hgb 8.2 g/dL (11.5-16.0) L 11/01/18 06:22 Hct 25.4 % (34.5-46.5) L 11/01/18 06:22 MCV 91.0 fl (80.0-100.0) 11/01/18 06:22 MCH 29.6 pg (28.0-34.0) 11/01/18 06:22 MCHC 32.5 g/dL (30.0-36.0) 11/01/18 06:22 RDW 14.7 % (11.3-14.3) H 11/01/18 06:22 Plt Count 205 K/mm3 (130-400) 11/01/18 06:22 Neut % (Auto) 57.6 % (39.0-79.0) 11/01/18 06:22 Lymph % (Auto) 26.9 % (16.0-50.0) 11/01/18 06:22 [place] % (Auto) 11.3 % (0.0-11.0) H 11/01/18 06:22 Eos % (Auto) 3.8 % (0.0-6.8) 11/01/18 06:22 Baso % (Auto) 0.4 % (0.0-1.5) 11/01/18 06:22 Neut # (Auto) 2.1 # k/uL (1.4-7.7) 11/01/18 06:22 Lymph # (Auto) 1.0 # k/uL (0.6-4.0) 11/01/18 06:22 [place] # (Auto) 0.4 # k/uL (0.0-0.9) 11/01/18 06:22 Eos # (Auto) 0.1 # k/uL (0.0-0.6) 11/01/18 06:22 Baso # (Auto) 0.0 # k/uL (0.0-0.5) 11/01/18 06:22 Sodium 140 mmol/L (137-145) 11/01/18 06:22 Potassium 3.5 mmol/L (3.5-5.1) 11/01/18 06:22 Chloride 104 mmol/L (98-107) 11/01/18 06:22 Carbon Dioxide 27 mmol/L (22-30) 11/01/18 06:22 Anion Gap 12.5 11/01/18 06:22 BUN 17 mg/dL (7-17) 11/01/18 06:22 Creatinine 1.11 mg/dL (0.52-1.04) H 11/01/18 06:22 Estimated Creat Clear 74 11/01/18 06:22 Est GFR ( Amer) > 60 (60-) 11/01/18 06:22 Est GFR (Non-Af Amer) > 60 (60-) 11/01/18 06:22 Glucose 92 mg/dL (74-106) 11/01/18 06:22 Calcium 9.4 mg/dL (8.4-10.2) 11/01/18 06:22 Total Bilirubin 0.5 mg/dL (0.2-1.3) 10/31/18 15:50 AST 62 U/L (15-46) H 10/31/18 15:50 ALT 40 U/L (13-69) 10/31/18 15:50 Alkaline Phosphatase 60 U/L (38-126) 10/31/18 15:50 NT-Pro-B Natriuret Pep 1366.8 pg/mL (11.1-125.0) H 10/31/18 15:50 Total Protein 5.9 g/dL (6.3-8.2) L 10/31/18 15:50 Albumin 2.8 g/dL (3.5-5.0) L 10/31/18 15:50 Assessment/Plan - Assessment/Plan (1) Anemia Status: Acute Current Visit: Yes Qualifiers: Anemia type: unspecified type Qualified Code(s): D64.9 - Anemia, unspecified Plan: On Xarelto. I think anemia from chronic kidney disease but will get stool guiac. (2) Bilateral pneumonia Status: Acute Current Visit: Yes Qualifiers: Pneumonia type: due to other aerobic Gram-negative bacteria Lung location: lower lobe of lung Qualified Code(s): J15.6 - Pneumonia due to other Gram- negative bacteria Plan: Continue IV antibiotics. (3) CHF (congestive heart failure) Status: Acute Current Visit: No Qualifiers: Heart failure chronicity: acute Plan: Give IV lasix today. May need to continue tomorrow.
[2018-11-01] MEDS ORDERED: 0.9 % SODIUM CHLORIDE 250 ML IV ONE (08:50)
[2018-11-01] MEDS: FLUTICASONE/SALMETEROL 250-50 INHALER IH SCH ×2 (08:56→21:34)
[2018-11-01] MEDS: DOCUSATE SODIUM 100 MG CAPSULE PO SCH (08:58)
[2018-11-01] MEDS: LISINOPRIL 10 MG TABLET PO SCH (08:58)
[2018-11-01] MEDS: GABAPENTIN 100 MG CAPSULE PO SCH ×2 (08:58→21:35)
[2018-11-01] MEDS: METOPROLOL TARTRATE 25 MG TABLET PO SCH ×2 (08:59→21:34)
[2018-11-01] MEDS: CALCIUM/VIT D 500MG/200 UNIT TABLET PO SCH ×2 (08:59→21:35)
[2018-11-01] MEDS ORDERED: LISINOPRIL PO SCH (09:00)
[2018-11-01] MEDS ORDERED: CALCIUM CARB PO SCH (09:00)
[2018-11-01] MEDS ORDERED: FUROSEMIDE 40 MG TABLET PO SCH (09:00)
[2018-11-01] MEDS ORDERED: HYDROCHLOROTHIAZIDE PO SCH (09:00)
[2018-11-01] MEDS ORDERED: D3 PO SCH (09:00)
[2018-11-01] MEDS: VANCOMYCIN HCL 1 GM in 0.9 % SODIUM CHLORIDE 250 ML IV SCH (09:16)
[2018-11-01] MEDS: FERROUS SULFATE 325 MG TABLET PO SCH ×2 (10:44→18:29)
[2018-11-01] MEDS: CEFEPIME HCL 1 GM in 0.9 % SODIUM CHLORIDE 50 ML IV SCH ×2 (10:47→21:35)
[2018-11-01] MEDS ORDERED: FUROSEMIDE 20 MG/2 ML VIAL IVP ONE (11:43)
[2018-11-01] MEDS: RIVAROXABAN 15 MG TABLET PO SCH (17:48)
[2018-11-01] MEDS: ACETAMINOPHEN WITH CODEINE 300MG/30MG TABLET PO PRN ×2 (17:50→21:51)
[2018-11-02] MEDS: PANTOPRAZOLE SODIUM 40 MG TABLET.DR PO SCH (06:05)
[2018-11-02] MEDS: ACETAMINOPHEN WITH CODEINE 300MG/30MG TABLET PO PRN ×2 (06:05→20:52)
[2018-11-02] MEDS: IPRATROPIUM/ALBUTEROL SULFATE 3 ML AMPUL.NEB NEB SCH ×3 (06:06→21:19)
[2018-11-02 06:54] LABS: BASOPHILS % 0.5 % (0.0-1.5); NEUTROPHILS # 2.3 # k/uL (1.4-7.7)
[2018-11-02 06:55] LABS: eGFR (Non-African) > 60
[2018-11-02] MEDS ORDERED: POTASSIUM CHLORIDE 20 MEQ TABLET.ER PO ONE (07:53)
--- NOTE | 2018-11-02 07:55 | Inpatient Progress Note ---
Subjective - Required Recertification Statement I anticipate X number of days because-include discharge plan: 2 - Review of Systems Subjective: Patient felt better last night but today not feeling as good. Can't tell me what is wrong - denies pain, SOB, nausea. Objective - Exam Vitals and I&O: Vital Signs Temp 97.6 F 11/02/18 06:00 Pulse 75 11/02/18 06:00 Resp 20 11/02/18 06:00 BP 117/58 11/02/18 06:00 Pulse Ox 93 11/02/18 06:00 Intake & Output 11/01/18 11/01/18 11/02/18 11:59 23:59 11:59 Intake Total 480 240 360 Output Total 655 855 7603 Balance 55 -360 -845 Weight 87.997 kg 88.904 kg Intake: Oral 480 240 360 Output: Urine 581 355 4534 Other: Voiding Method Bedside Commode Toilet Toilet # Voids 1 1 6 General: Alert, Oriented to Person, Oriented to Place, Oriented to Time, Cooperative, No acute distress Lungs: Rhonchi Cardiovascular: Regular rate - Results Results: Laboratory Results WBC 4.10 K/ul (4.00-12.00) 11/02/18 06:41 RBC 2.83 M/ul (3.90-5.20) L 11/02/18 06:41 Hgb 8.2 g/dL (11.5-16.0) L 11/02/18 06:41 Hct 25.5 % (34.5-46.5) L 11/02/18 06:41 MCV 90.0 fl (80.0-100.0) 11/02/18 06:41 MCH 29.0 pg (28.0-34.0) 11/02/18 06:41 MCHC 32.2 g/dL (30.0-36.0) 11/02/18 06:41 RDW 14.9 % (11.3-14.3) H 11/02/18 06:41 Plt Count 195 K/mm3 (130-400) 11/02/18 06:41 Neut % (Auto) 55.6 % (39.0-79.0) 11/02/18 06:41 Lymph % (Auto) 24.1 % (16.0-50.0) 11/02/18 06:41 [place] % (Auto) 13.9 % (0.0-11.0) H 11/02/18 06:41 Eos % (Auto) 5.9 % (0.0-6.8) 11/02/18 06:41 Baso % (Auto) 0.5 % (0.0-1.5) 11/02/18 06:41 Neut # (Auto) 2.3 # k/uL (1.4-7.7) 11/02/18 06:41 Lymph # (Auto) 1.0 # k/uL (0.6-4.0) 11/02/18 06:41 [place] # (Auto) 0.6 # k/uL (0.0-0.9) 11/02/18 06:41 Eos # (Auto) 0.2 # k/uL (0.0-0.6) 11/02/18 06:41 Baso # (Auto) 0.0 # k/uL (0.0-0.5) 11/02/18 06:41 Sodium 139 mmol/L (137-145) 11/02/18 06:41 Potassium 3.4 mmol/L (3.5-5.1) L 11/02/18 06:41 Chloride 103 mmol/L (98-107) 11/02/18 06:41 Carbon Dioxide 29 mmol/L (22-30) 11/02/18 06:41 Anion Gap 10.4 11/02/18 06:41 BUN 16 mg/dL (7-17) 11/02/18 06:41 Creatinine 1.12 mg/dL (0.52-1.04) H 11/02/18 06:41 Estimated Creat Clear 74 11/02/18 06:41 Est GFR ( Amer) > 60 (60-) 11/02/18 06:41 Est GFR (Non-Af Amer) > 60 (60-) 11/02/18 06:41 Glucose 105 mg/dL (74-106) 11/02/18 06:41 Calcium 9.0 mg/dL (8.4-10.2) 11/02/18 06:41 Total Bilirubin 0.5 mg/dL (0.2-1.3) 10/31/18 15:50 AST 62 U/L (15-46) H 10/31/18 15:50 ALT 40 U/L (13-69) 10/31/18 15:50 Alkaline Phosphatase 60 U/L (38-126) 10/31/18 15:50 NT-Pro-B Natriuret Pep 1366.8 pg/mL (11.1-125.0) H 10/31/18 15:50 Total Protein 5.9 g/dL (6.3-8.2) L 10/31/18 15:50 Albumin 2.8 g/dL (3.5-5.0) L 10/31/18 15:50 Vancomycin Trough Scanned report 11/01/18 06:22 Assessment/Plan - Assessment/Plan (1) Anemia Status: Acute Current Visit: Yes Qualifiers: Anemia type: unspecified type Qualified Code(s): D64.9 - Anemia, unspecified (2) Bilateral pneumonia Status: Acute Current Visit: Yes Qualifiers: Pneumonia type: due to other aerobic Gram-negative bacteria Lung location: lower lobe of lung Qualified Code(s): J15.6 - Pneumonia due to other Gram-n egative bacteria Plan: Will repeat CXR tomorrow. (3) CHF (congestive heart failure) Status: Acute Current Visit: No Qualifiers: Heart failure chronicity: acute Plan: Change IV to lasix. WEight up a little today. STrict I&O's.
[2018-11-02] MEDS ORDERED: 0.9 % SODIUM CHLORIDE 250 ML IV ONE (08:17)
[2018-11-02] MEDS: CALCIUM/VIT D 500MG/200 UNIT TABLET PO SCH ×2 (08:31→20:52)
[2018-11-02] MEDS: LISINOPRIL 10 MG TABLET PO SCH (08:31)
[2018-11-02] MEDS: METOPROLOL TARTRATE 25 MG TABLET PO SCH ×2 (08:32→20:53)
[2018-11-02] MEDS: GABAPENTIN 100 MG CAPSULE PO SCH ×2 (08:32→20:53)
[2018-11-02] MEDS: DOCUSATE SODIUM 100 MG CAPSULE PO SCH (08:32)
[2018-11-02] MEDS: FLUTICASONE/SALMETEROL 250-50 INHALER IH SCH ×2 (08:35→20:52)
[2018-11-02] MEDS: VANCOMYCIN HCL 1 GM in 0.9 % SODIUM CHLORIDE 250 ML IV SCH (09:13)
[2018-11-02] MEDS: CEFEPIME HCL 1 GM in 0.9 % SODIUM CHLORIDE 50 ML IV SCH ×2 (09:18→20:53)
[2018-11-02] MEDS: FERROUS SULFATE 325 MG TABLET PO SCH ×2 (10:48→17:45)
[2018-11-02] MEDS: methylPREDNISolone SOD SUCC 40 MG/ML VIAL IVP SCH ×2 (14:01→20:52)
[2018-11-02] MEDS: FUROSEMIDE 40 MG/4 ML VIAL IVP SCH (14:02)
[2018-11-02 16:35] VITALS: BMI 37.0
[2018-11-02] MEDS: RIVAROXABAN 15 MG TABLET PO SCH (17:46)
[2018-11-03] MEDS: IPRATROPIUM/ALBUTEROL SULFATE 3 ML AMPUL.NEB NEB SCH ×2 (05:41→13:27)
[2018-11-03] MEDS: methylPREDNISolone SOD SUCC 40 MG/ML VIAL IVP SCH ×2 (05:42→13:22)
[2018-11-03] MEDS: FUROSEMIDE 40 MG/4 ML VIAL IVP SCH ×2 (06:01→13:24)
[2018-11-03] MEDS: PANTOPRAZOLE SODIUM 40 MG TABLET.DR PO SCH (06:01)
[2018-11-03 06:02] LABS: BASOPHILS % 0.3 % (0.0-1.5); NEUTROPHILS # 2.9 # k/uL (1.4-7.7); eGFR (Non-African) > 60
[2018-11-03] MEDS: LISINOPRIL 10 MG TABLET PO SCH (08:32)
[2018-11-03] MEDS: DOCUSATE SODIUM 100 MG CAPSULE PO SCH (08:32)
[2018-11-03] MEDS: METOPROLOL TARTRATE 25 MG TABLET PO SCH (08:33)
[2018-11-03] MEDS: GABAPENTIN 100 MG CAPSULE PO SCH (08:33)
[2018-11-03] MEDS: CALCIUM/VIT D 500MG/200 UNIT TABLET PO SCH (08:33)
[2018-11-03] MEDS: FLUTICASONE/SALMETEROL 250-50 INHALER IH SCH (08:33)
[2018-11-03] MEDS: VANCOMYCIN HCL 1 GM in 0.9 % SODIUM CHLORIDE 250 ML IV SCH (08:33)
--- NOTE | 2018-11-03 09:47 | Diagnostic Imaging Report ---
RODRIGUEZ HOPPER [facility] [address] [facility] [address] [place], [place]. [address] Report Submission Date: Nov 03, 2018 7:03:59 AM CDT Patient Study Name: RAUDEL FREED Date: Nov 03, 2018 6:31:31 AM CDT Modality Type: DX Gender: F Description: CHEST 2VIEW : 47 Institution: [facility] Physician: RODRIGUEZ HOPPER HISTORY: 73-year-old female with pneumonia. COMPARISON: Chest x-rays dated 10/31/2018 and 10/30/2017. TECHNIQUE: 2 views of the chest were performed. FINDINGS: There are bilateral lung base infiltrates and effusions. There is new right mid lung plate-like atelectasis. There is central pulmonary vascular congestion. No pneumothorax. There is a calcified lymph node in the AP window. The heart is enlarged. IMPRESSION: 1. Bilateral lung base infiltrates and effusions are increased since the previous chest x-ray. Additionally, there is new right mid lung atelectasis. 2. Cardiomegaly and central pulmonary vascular congestion consistent with mild CHF. Electronically signed on Nov 03, 2018 7:03:59 AM CDT by: Jaskaran GONZALEZ
[2018-11-03] MEDS: ACETAMINOPHEN WITH CODEINE 300MG/30MG TABLET PO PRN (09:52)
[2018-11-03] MEDS: CEFEPIME HCL 1 GM in 0.9 % SODIUM CHLORIDE 50 ML IV SCH (09:52)
[2018-11-03] MEDS: FERROUS SULFATE 325 MG TABLET PO SCH (11:04)
[2018-11-03 13:52] VITALS: BP 124/69
--- NOTE | 2018-11-03 17:32 | Discharge Summary ---
Discharge Summary - Discharge [facility] Admission Date: 10/31/18 Discharge Date: 11/03/18 Discharge To: Other (skilled) History of Present Illness: This is a 73 year old female who was dishcarged from our facility after a skilled stay for new onset CHF and right knee pain, limiting her ability to ambulate. She was doing well prior to discharge, however over the course of the day today, she became more weak, and had more difficulty with breathing. She came to the ER , and was noted to have an elevated BNP, and bilateral basilar infiltrates on chest X ray. She is admitted for IV antibiotics, nebulizer treatments and O2 as needed. Condition at Discharge: Stable Home Medications: Ambulatory Orders Medication Instructions Recorded Albuterol Sulfate [Proair 2 puff IH Q6H PRN 10/23/18 Respiclick] Calcium Carb 600Mg/Vit D-3 400 1 each PO DAILY 10/23/18 [Caltrate with Vit D-3] Ferrous Sulfate [Iron] 325 mg PO BID 10/23/18 Gabapentin [Neurontin] 200 mg PO BID 10/23/18 Lisinopril/Hydrochlorothiazide 1 each PO DAILY 10/23/18 [Zestoretic] Metoprolol Tartrate [Lopressor] 25 mg PO BID 10/23/18 Pantoprazole Sodium [Protonix] 40 mg PO 0700 10/23/18 Potassium Chloride [Klor-Con 10] 10 meq PO BID 10/23/18 Rivaroxaban [Xarelto] 15 mg PO 1800 10/23/18 Albuterol Sulfate [Proair HFA] 2 inh IH Q4H PRN 10/31/18 Citalopram Hydrobromide [Celexa] 20 mg PO QD 10/31/18 Fluticasone Propion/Salmeterol 1 each INH BID 10/31/18 [Advair 250-50 Diskus] Polyethylene Glycol 3350 [Miralax] 17 gm PO 1100 10/31/18 Consultations this Visit: None Procedures this Visit: None Allergies/Adverse Reactions: Allergies Allergy/AdvReac Type Severity Reaction Status Date / Time ciprofloxacin AdvReac Severe Shakiness Verified 10/31/18 15:35 Discharge Summary: Patient was admitted for bilateral pneumonia. She was started on cefepime and vancomycin, however after agressive diuresis, she was breathing much better. She was transferred to skilled stay on November 03, 2018 for continued therapy with antibiotics being changed to cefuroxime 250 mg po BID.
== END 2018-11-03 15:34 | DRG 177 ==
LOC: ED 14:57 → SOUTH 17:36
PROVIDERS: ADMIT Family Medicine; ATTEND Family Medicine
DX: J15.6 Pneumonia due to other Gram-negative bacteria (principal); I50.43 Acute on chronic combined systolic (congestive) and diastolic (congestive) heart failure; I13.0 Hypertensive heart and chronic kidney disease with heart failure and stage 1 through stage 4 chronic kidney disease, or unspecified chronic kidney disease; N18.4 Chronic kidney disease, stage 4 (severe); I50.9 Heart failure, unspecified; I48.91 Unspecified atrial fibrillation; J45.909 Unspecified asthma, uncomplicated; E66.9 Obesity, unspecified; D63.1 Anemia in chronic kidney disease; G47.33 Obstructive sleep apnea (adult) (pediatric); M19.90 Unspecified osteoarthritis, unspecified site; Z98.51 Tubal ligation status; Z88.1 Allergy status to other antibiotic agents; Z79.01 Long term (current) use of anticoagulants; Z79.899 Other long term (current) drug therapy; Z79.51 Long term (current) use of inhaled steroids; Z68.37 Body mass index [BMI] 37.0-37.9, adult
CPT/HCPCS: 71046; 80048; 80053; 80202; 83880; 85025; 87040; 93005; 97116; A9270; J0692; J1940; J2920; J3370; J7050; 94640; 96361; 96374; 96375; 99231; 99232; 99238; 99283; 99284; J1030; S1016

== ENCOUNTER 2018-11-23 14:24 | Outpatient (CLI) | payer OTHER ==
[2018-11-14 10:15] VITALS: BP 122/59
[2018-11-23 14:56] LABS: eGFR (Non-African) > 60
--- NOTE | 2018-11-23 15:14 | Diagnostic Imaging Report ---
JOHN VEE [facility] [address] [facility] [address]. [address] Report Submission Date: Nov 23, 2018 2:57:29 PM CDT Patient Study Name: RADUEL FREED Date: Nov 23, 2018 2:31:05 PM CDT Modality Type: DX Gender: F Description: CHEST 2VIEW : 47 Institution: [facility] Physician: JOHN VEE Exam: Chest two views. History: Heart failure. The examination is compared to study dated November 03, 2018. Diminished yet persistent perihilar infiltrates are noted. Diminished bilateral pleural effusions are seen. Heart size and mediastinal contour are stable. Calcified granuloma in the left perihilar region persist. Degenerate changes in the thoracic spine are noted. Impression: Diminished yet persistent perihilar infiltrates. Diminished bilateral pleural effusions. Electronically signed on Nov 23, 2018 2:57:29 PM CDT by: Song GONZALEZ
== END 2018-11-23 14:26 ==
LOC: LAB 14:24
PROVIDERS: ATTEND Family Medicine
DX: I50.9 Heart failure, unspecified (principal)
CPT/HCPCS: 36415; 71046; 80053; 83880

== ENCOUNTER 2019-01-10 14:44 | Outpatient (CLI) | payer OTHER ==
[2018-11-14 10:15] VITALS: BP 122/59
[2019-01-10 15:27] LABS: BASOPHILS % 0.2 % (0.0-1.5); NEUTROPHILS # 2.3 # k/uL (1.4-7.7)
[2019-01-10 15:33] LABS: eGFR (Non-African) > 60
== END 2019-01-10 14:49 ==
LOC: LABRHC 14:44
PROVIDERS: ATTEND Family Medicine
DX: I10 Essential (primary) hypertension (principal); E61.1 Iron deficiency
CPT/HCPCS: 80053; 85025

== ENCOUNTER 2019-02-12 16:42 | Inpatient (IN) | payer OTHER ==
[2019-02-12 17:13] VITALS: BMI 33.0
[2019-02-12] MEDS: FERROUS SULFATE 325 MG TABLET PO SCH (18:48)
[2019-02-12] MEDS ORDERED: GUAIFENESIN 200 MG/10 ML ONE (20:48)
[2019-02-12] MEDS: FLUTICASONE/SALMETEROL 250-50 INHALER IH SCH (21:37)
[2019-02-12] MEDS: GABAPENTIN 100 MG CAPSULE PO SCH (21:38)
[2019-02-12] MEDS: guaiFENesin DM 100 MG/10 MG/5 ML 118ML BOTTLE PO PRN (21:38)
[2019-02-12] MEDS: SODIUM CHLORIDE 0.9% 1 NASAL SPRAY BTL IEN SCH (21:43)
[2019-02-12] MEDS: IPRATROPIUM/ALBUTEROL SULFATE 3 ML AMPUL.NEB NEB SCH (21:44)
[2019-02-13] MEDS ORDERED: FUROSEMIDE 40 MG/4 ML VIAL IVP ONE (06:14)
[2019-02-13] MEDS: IPRATROPIUM/ALBUTEROL SULFATE 3 ML AMPUL.NEB NEB PRN (06:37)
[2019-02-13 07:28] LABS: eGFR (Non-African) > 60
[2019-02-13] MEDS ORDERED: 0.9 % SODIUM CHLORIDE 50 ML IV ONE (07:55)
[2019-02-13] MEDS ORDERED: cefTRIAXone SODIUM 1 GM INJ ONE (07:55)
[2019-02-13] MEDS: IPRATROPIUM/ALBUTEROL SULFATE 3 ML AMPUL.NEB NEB SCH ×4 (08:46→20:32)
[2019-02-13 09:28] LABS: ANISOCYTOSIS 1+ (NEGATIVE); HYPOCHROMASIA 2+ (NEGATIVE); SEGMENTED NEUTROPHILS % 70 % (39-79)
[2019-02-13] MEDS: FLUTICASONE/SALMETEROL 250-50 INHALER IH SCH ×2 (09:34→20:31)
[2019-02-13] MEDS: GABAPENTIN 100 MG CAPSULE PO SCH ×3 (09:35→20:30)
[2019-02-13] MEDS: DOCUSATE SODIUM 100 MG CAPSULE PO SCH (09:35)
[2019-02-13] MEDS: cefTRIAXone SODIUM 1 GM in 0.9 % SODIUM CHLORIDE 50 ML IV SCH (09:35)
[2019-02-13] MEDS: POTASSIUM CHLORIDE 20 MEQ TABLET.ER PO SCH (09:35)
[2019-02-13] MEDS: CITALOPRAM HYDROBROMIDE 20 MG TABLET PO SCH (09:35)
[2019-02-13] MEDS: SODIUM CHLORIDE 0.9% 1 NASAL SPRAY BTL IEN SCH ×4 (09:40→20:31)
[2019-02-13] MEDS: FERROUS SULFATE 325 MG TABLET PO SCH ×2 (11:24→18:31)
[2019-02-13] MEDS ORDERED: GUAIFENESIN 200 MG/10 ML ONE (15:54)
[2019-02-13] MEDS: guaiFENesin DM 100 MG/10 MG/5 ML 118ML BOTTLE PO PRN (16:00)
[2019-02-14] MEDS: FLUTICASONE/SALMETEROL 250-50 INHALER IH SCH ×2 (08:05→20:18)
[2019-02-14] MEDS: SODIUM CHLORIDE 0.9% 1 NASAL SPRAY BTL IEN SCH ×4 (08:07→20:18)
[2019-02-14] MEDS: GABAPENTIN 100 MG CAPSULE PO SCH ×3 (08:07→20:17)
[2019-02-14] MEDS: POTASSIUM CHLORIDE 20 MEQ TABLET.ER PO SCH (08:07)
[2019-02-14] MEDS: DOCUSATE SODIUM 100 MG CAPSULE PO SCH (08:08)
[2019-02-14] MEDS: cefTRIAXone SODIUM 1 GM in 0.9 % SODIUM CHLORIDE 50 ML IV SCH (08:08)
[2019-02-14] MEDS: CITALOPRAM HYDROBROMIDE 20 MG TABLET PO SCH (08:08)
[2019-02-14] MEDS: IPRATROPIUM/ALBUTEROL SULFATE 3 ML AMPUL.NEB NEB SCH ×4 (08:12→20:20)
[2019-02-14] MEDS: FERROUS SULFATE 325 MG TABLET PO SCH ×2 (11:05→18:10)
[2019-02-14] MEDS ORDERED: RIVAROXABAN 10 MG TABLET PO ONE (19:00)
--- NOTE | 2019-02-15 08:29 | Diagnostic Imaging Report ---
PATIENT MR#: [id number] PATIENT PATIENT NAME: RAUDEL FREED DATE OF : 1945 REFERRING PHYSICIAN: Jacque Matamoros EXAM DATE: 02/15/2019 ACCESSION NUMBER: [id number] EXAM DESCRIPTION: US U OR L EXT VEINS UNILAT Examination: Ultrasound right vein History: PAIN, SWELLING, REDNESS IN RT LEG HISTORY Findings: Sonographic evaluation of the right lower extremity venous system from the groin to the pop liteal fossa inclusive. Normal compressibility. No luminal filling defect. Normal waveforms and response to augmen tation. No popliteal region fluid collection. Unable the visualized posterior vein due to body habitus/swelling. Impression: No evidence for deep venous thrombosis. Read by: Dr. Galileo Burrell Transcribed by: Transcribed Date: Electronically signed by: Dr. Galileo Burrell Date signed: 02/15/2019 8:29:06 AM
[2019-02-15] MEDS: IPRATROPIUM/ALBUTEROL SULFATE 3 ML AMPUL.NEB NEB SCH ×4 (08:36→20:45)
[2019-02-15] MEDS ORDERED: FUROSEMIDE 40 MG/4 ML VIAL IVP ONE (09:39)
[2019-02-15] MEDS: GABAPENTIN 100 MG CAPSULE PO SCH ×3 (09:41→20:45)
[2019-02-15] MEDS: FLUTICASONE/SALMETEROL 250-50 INHALER IH SCH ×2 (09:41→21:03)
[2019-02-15] MEDS: DOCUSATE SODIUM 100 MG CAPSULE PO SCH (09:41)
[2019-02-15] MEDS: SODIUM CHLORIDE 0.9% 1 NASAL SPRAY BTL IEN SCH ×4 (09:42→21:06)
[2019-02-15] MEDS: CITALOPRAM HYDROBROMIDE 20 MG TABLET PO SCH (09:42)
[2019-02-15] MEDS: cefTRIAXone SODIUM 1 GM in 0.9 % SODIUM CHLORIDE 50 ML IV SCH (09:42)
[2019-02-15] MEDS: POTASSIUM CHLORIDE 20 MEQ TABLET.ER PO SCH (09:42)
[2019-02-15 09:56] LABS: NEUTROPHILS # 2.8 # k/uL (1.4-7.7)
--- NOTE | 2019-02-15 09:56 | Diagnostic Imaging Report ---
PATIENT MR#: [id number] PATIENT PATIENT NAME: RAUDEL FREED DATE OF : 1945 REFERRING PHYSICIAN: Jacque Matamoros EXAM DATE: 02/15/2019 ACCESSION NUMBER: [id number] EXAM DESCRIPTION: CHEST 2VIEW Examination: PA and lateral chest. History: Evaluate lung cisneros. Comparison exam: 10 February 2019 Findings: PA and lateral views of the chest demonstrates a prominent cardiac silhouette. Tortuous aor ta. Calcified hilar granuloma. Increased bilateral interstitial prominence, left greater than right. Obscuration of the l eft lung base. Central vascular prominence. Osseous degenerative changes. Impression: Increased, left greater than right, interstitial infiltrates with left base effusion. Ryan tral vascular prominence. Cardiomegaly. Read by: Dr. Galileo Burrell Transcribed by: Transcribed Date: Electronically signed by: Dr. Galileo Burrell Date signed: 02/15/2019 9:55:06 AM
[2019-02-15 09:57] LABS: SEGMENTED NEUTROPHILS % 67 % (39-79)
[2019-02-15 09:58] LABS: ANISOCYTOSIS 1+ (NEGATIVE); BASOPHILS % 1 % (0-2); HYPOCHROMASIA 2+ (NEGATIVE); TEAR DROP CELLS 1+ (NEGATIVE)
[2019-02-15 10:09] LABS: eGFR (Non-African) > 60
[2019-02-15] MEDS: FERROUS SULFATE 325 MG TABLET PO SCH ×2 (12:43→17:03)
[2019-02-16] MEDS: cefTRIAXone SODIUM 1 GM in 0.9 % SODIUM CHLORIDE 50 ML IV SCH (08:36)
[2019-02-16] MEDS: SODIUM CHLORIDE 0.9% 1 NASAL SPRAY BTL IEN SCH ×4 (08:44→20:27)
[2019-02-16] MEDS: FLUTICASONE/SALMETEROL 250-50 INHALER IH SCH ×2 (08:44→20:27)
[2019-02-16] MEDS: CITALOPRAM HYDROBROMIDE 20 MG TABLET PO SCH (08:45)
[2019-02-16] MEDS: POTASSIUM CHLORIDE 20 MEQ TABLET.ER PO SCH (08:45)
[2019-02-16] MEDS: GABAPENTIN 100 MG CAPSULE PO SCH ×3 (08:45→20:32)
[2019-02-16] MEDS: DOCUSATE SODIUM 100 MG CAPSULE PO SCH (08:45)
[2019-02-16] MEDS: IPRATROPIUM/ALBUTEROL SULFATE 3 ML AMPUL.NEB NEB SCH ×4 (09:45→20:35)
[2019-02-16] MEDS: FERROUS SULFATE 325 MG TABLET PO SCH ×2 (11:32→18:40)
--- NOTE | 2019-02-16 12:39 | Inpatient Progress Note ---
Subjective - Required Recertification Statement I anticipate X number of days because-include discharge plan: 5 - Review of Systems Events since last encounter: Lisette has had some increased SOB and wheezing. She has gained about 20 lbs in the past few days. She is not having any CP, but has enough SOB that she is having difficulty doing therapy. Her labs show complete return of renal function, however she is clinically beginning to get wet. General: Fatigue. Denies: Chills, Night Sweats HEENT: Denies: Head Aches, Visual Changes Pulmonary: Dyspnea. Denies: Cough, Pleuritic Chest Pain Cardiovascular: Denies: Chest Pain Gastrointestinal: Denies: Nausea, Vomiting Genitourinary: Denies: Dysuria Musculoskeletal: Denies: Neck Pain, Shoulder Pain Neurological: Denies: Weakness, Change in Speech, Confusion Objective - Exam Vitals and I&O: Vital Signs Temp 98.6 F 02/16/19 09:00 Pulse 87 02/16/19 09:00 Resp 20 02/16/19 09:00 BP 137/64 02/16/19 09:00 Pulse Ox 100 02/16/19 09:00 Intake & Output 02/15/19 02/16/19 02/16/19 23:59 11:59 23:59 Intake Total 820 180 Output Total 1850 0 Balance -1030 180 Intake: Oral 820 180 Output: Urine 1850 0 Other: Voiding Method Bedside Commode Bedside Commode # Bowel Movements 0 General: Alert, Oriented to Person, Oriented to Place, Oriented to Time, Cooperative HEENT: Atraumatic, PERRLA Neck: Supple Lungs: Decreased Air Movement (and crackles at bases) Cardiovascular: Regular rate Abdomen: Normal bowel sounds, Soft Extremities: No: No edema (2+ BLE) Skin: Normal, Warm, Dry Neurological: Normal speech Psych/Mental Status: Mental status NL - Results Results: Laboratory Results WBC 4.40 K/ul (4.00-12.00) 02/15/19 09:12 RBC 2.86 M/ul (3.90-5.20) L 02/15/19 09:12 Hgb 8.3 g/dL (11.5-16.0) L 02/15/19 09:12 Hct 26.2 % (34.5-46.5) L 02/15/19 09:12 MCV 92.0 fl (80.0-100.0) 02/15/19 09:12 MCH 29.1 pg (28.0-34.0) 02/15/19 09:12 MCHC 31.8 g/dL (30.0-36.0) 02/15/19 09:12 RDW 15.3 % (11.3-14.3) H 02/15/19 09:12 Plt Count 161 K/mm3 (130-400) 02/15/19 09:12 Neut % (Auto) Not Reportable 02/13/19 06:30 Lymph % (Auto) Not Reportable 02/13/19 06:30 [place] % (Auto) Not Reportable 02/13/19 06:30 Eos % (Auto) Not Reportable 02/13/19 06:30 Baso % (Auto) Not Reportable 02/13/19 06:30 Neut # (Auto) 2.8 # k/uL (1.4-7.7) 02/15/19 09:12 Lymph # (Auto) 0.8 # k/uL (0.6-4.0) 02/15/19 09:12 [place] # (Auto) 0.6 # k/uL (0.0-0.9) 02/15/19 09:12 Eos # (Auto) 0.2 # k/uL (0.0-0.6) 02/15/19 09:12 Baso # (Auto) 0.0 # k/uL (0.0-0.5) 02/15/19 09:12 Seg Neutrophils % 67 % (39-79) 02/15/19 09:12 Lymphocytes % 11 % (16-50) L 02/15/19 09:12 Monocytes % 13 % (0-11) H 02/15/19 09:12 Eosinophils % 5 % (0-7) 02/15/19 09:12 Basophils % 1 % (0-2) 02/15/19 09:12 Metamyelocytes % 2 % (0-0) H 02/15/19 09:12 Myelocytes % 1 % (0-0) H 02/15/19 09:12 Plt Morphology Comment Normal (NORMAL) 02/15/19 09:12 Polychromasia 1+ (NEGATIVE) H 02/15/19 09:12 Hypochromasia 2+ (NEGATIVE) H 02/15/19 09:12 Anisocytosis 1+ (NEGATIVE) H 02/15/19 09:12 Tear Drop Cells 1+ (NEGATIVE) H 02/15/19 09:12 RBC Morph Comment Abnormal (NORMAL) H 02/15/19 09:12 Sodium 141 mmol/L (137-145) 02/15/19 09:12 Potassium 4.6 mmol/L (3.5-5.1) 02/15/19 09:12 Chloride 109 mmol/L (98-107) H 02/15/19 09:12 Carbon Dioxide 28 mmol/L (22-30) 02/15/19 09:12 Anion Gap 8.6 02/15/19 09:12 BUN 17 mg/dL (7-17) 02/15/19 09:12 Creatinine 0.89 mg/dL (0.52-1.04) 02/15/19 09:12 Estimated Creat Clear 92 02/15/19 09:12 Est GFR ( Amer) > 60 (60-) 02/15/19 09:12 Est GFR (Non-Af Amer) > 60 (60-) 02/15/19 09:12 Glucose 106 mg/dL (74-106) 02/15/19 09:12 Calcium 8.9 mg/dL (8.4-10.2) 02/15/19 09:12 Total Bilirubin 0.6 mg/dL (0.2-1.3) 02/15/19 09:12 AST 58 U/L (15-46) H 02/15/19 09:12 ALT 28 U/L (4-35) 02/15/19 09:12 Alkaline Phosphatase 79 U/L (38-126) 02/15/19 09:12 NT-Pro-B Natriuret Pep 1137.0 pg/mL (15.0-125.5) H 02/15/19 09:12 Total Protein 5.5 g/dL (6.3-8.2) L 02/15/19 09:12 Albumin 2.8 g/dL (3.5-5.0) L 02/15/19 09:12 Assessment/Plan - Assessment/Plan (1) Acute exacerbation of CHF (congestive heart failure) Status: Acute Current Visit: No Qualifiers: Heart failure type: combined systolic and diastolic Qualified Code(s): I50.43 - Acute on chronic combined systolic (congestive) and diastolic (congestive) heart failure Assessment: Restart Lasix (2) Acute renal failure Status: Acute Current Visit: No Qualifiers: Acute renal failure type: unspecified Qualified Code(s): N17.9 - Acute kidney failure, unspecified Plan: Markedly improved (3) Anemia Status: Acute Current Visit: No Qualifiers: Anemia type: unspecified type Qualified Code(s): D64.9 - Anemia, unspecified Assessment: Check CBC in am (4) Bilateral pneumonia Status: Acute Current Visit: No Qualifiers: Pneumonia type: due to other aerobic Gram-negative bacteria Lung location: lower lobe of lung Qualified Code(s): J15.6 - Pneumonia due to other Gram-negative bacteria Plan: has finished antibiotics
[2019-02-16] MEDS: FUROSEMIDE 40 MG/4 ML VIAL IVP SCH (12:45)
[2019-02-16] MEDS ORDERED: ENOXAPARIN SODIUM 40 MG/0.4 ML DISP.SYRIN SQ ONE (20:01)
[2019-02-16] MEDS: ENOXAPARIN SODIUM 40 MG/0.4 ML DISP.SYRIN SQ SCH (20:32)
[2019-02-17] MEDS ORDERED: ENOXAPARIN SODIUM 40 MG/0.4 ML DISP.SYRIN SQ ONE (08:05)
[2019-02-17 08:44] LABS: eGFR (Non-African) > 60
[2019-02-17] MEDS: cefTRIAXone SODIUM 1 GM in 0.9 % SODIUM CHLORIDE 50 ML IV SCH (08:56)
[2019-02-17] MEDS: FLUTICASONE/SALMETEROL 250-50 INHALER IH SCH ×2 (09:00→20:20)
[2019-02-17] MEDS: IPRATROPIUM/ALBUTEROL SULFATE 3 ML AMPUL.NEB NEB SCH ×4 (09:00→20:21)
[2019-02-17] MEDS: SODIUM CHLORIDE 0.9% 1 NASAL SPRAY BTL IEN SCH ×4 (09:00→20:19)
[2019-02-17] MEDS: GABAPENTIN 100 MG CAPSULE PO SCH ×3 (09:01→20:18)
[2019-02-17] MEDS: CITALOPRAM HYDROBROMIDE 20 MG TABLET PO SCH (09:01)
[2019-02-17] MEDS: DOCUSATE SODIUM 100 MG CAPSULE PO SCH (09:01)
[2019-02-17] MEDS: POTASSIUM CHLORIDE 20 MEQ TABLET.ER PO SCH (09:01)
[2019-02-17] MEDS: ENOXAPARIN SODIUM 40 MG/0.4 ML DISP.SYRIN SQ SCH (09:02)
[2019-02-17] MEDS: FUROSEMIDE 40 MG/4 ML VIAL IVP SCH (10:17)
[2019-02-17] MEDS: FERROUS SULFATE 325 MG TABLET PO SCH ×2 (11:07→18:20)
[2019-02-18] MEDS ORDERED: ENOXAPARIN SODIUM 40 MG/0.4 ML DISP.SYRIN SQ ONE (08:04)
[2019-02-18] MEDS: cefTRIAXone SODIUM 1 GM in 0.9 % SODIUM CHLORIDE 50 ML IV SCH (08:56)
[2019-02-18] MEDS: IPRATROPIUM/ALBUTEROL SULFATE 3 ML AMPUL.NEB NEB SCH ×4 (09:00→20:51)
[2019-02-18] MEDS: DOCUSATE SODIUM 100 MG CAPSULE PO SCH (09:08)
[2019-02-18] MEDS: CITALOPRAM HYDROBROMIDE 20 MG TABLET PO SCH (09:08)
[2019-02-18] MEDS: FLUTICASONE/SALMETEROL 250-50 INHALER IH SCH ×2 (09:08→20:53)
[2019-02-18] MEDS: SODIUM CHLORIDE 0.9% 1 NASAL SPRAY BTL IEN SCH ×4 (09:08→20:54)
[2019-02-18] MEDS: ENOXAPARIN SODIUM 40 MG/0.4 ML DISP.SYRIN SQ SCH (09:08)
[2019-02-18] MEDS: GABAPENTIN 100 MG CAPSULE PO SCH ×3 (09:09→20:53)
[2019-02-18] MEDS: POTASSIUM CHLORIDE 20 MEQ TABLET.ER PO SCH (09:09)
[2019-02-18] MEDS: FUROSEMIDE 40 MG/4 ML VIAL IVP SCH (09:41)
[2019-02-18] MEDS: FERROUS SULFATE 325 MG TABLET PO SCH ×2 (10:30→18:22)
[2019-02-18 14:24] LABS: ANISOCYTOSIS 1+ (NEGATIVE); HYPOCHROMASIA 2+ (NEGATIVE); OVALOCYTES 1+ (NEGATIVE); SEGMENTED NEUTROPHILS % 71 % (39-79); TEAR DROP CELLS 1+ (NEGATIVE)
[2019-02-18 14:25] LABS: eGFR (Non-African) > 60
[2019-02-19] MEDS: guaiFENesin DM 100 MG/10 MG/5 ML 118ML BOTTLE PO PRN ×2 (01:37→21:18)
[2019-02-19 05:05] LABS: eGFR (Non-African) > 60
[2019-02-19] MEDS ORDERED: ENOXAPARIN SODIUM 40 MG/0.4 ML DISP.SYRIN SQ ONE (08:00)
[2019-02-19] MEDS: FUROSEMIDE 40 MG/4 ML VIAL IVP SCH (08:45)
[2019-02-19] MEDS: IPRATROPIUM/ALBUTEROL SULFATE 3 ML AMPUL.NEB NEB SCH ×4 (08:45→21:24)
--- NOTE | 2019-02-19 09:35 | Inpatient Progress Note ---
Subjective - Required Recertification Statement I anticipate X number of days because-include discharge plan: 3 - Review of Systems Events since last encounter: Jewels really has not gotten much better over the weekend. Her anticoagulation has been held due to her dropping hemoglobin, and her HgB is 7.3 today (the lowest it has been). She has not been transfused previously. She had an EGD done last year by Dr. Card. Those are not available to me on this computer, but I will look them up on a better functioning computer in the office today. I have ordered transfusion of 2 units of packed red cells. I also offered transfer back to [facility] if they would accept, but she would like to see how she feels after the transfusion today before being transferred, it it is necessary. General: Fatigue, Malaise. Denies: Chills, Night Sweats HEENT: Denies: Head Aches, Visual Changes Pulmonary: Dyspnea. Denies: Cough Cardiovascular: Denies: Chest Pain, Palpitations, Orthopnea Gastrointestinal: Denies: Nausea, Vomiting, Melena Genitourinary: Denies: Dysuria Musculoskeletal: Denies: Neck Pain, Shoulder Pain Neurological: Weakness. Denies: Change in Speech, Confusion Objective - Exam Vitals and I&O: Vital Signs Temp 98.8 F 02/19/19 09:00 Pulse 85 02/19/19 09:00 Resp 20 02/19/19 09:00 BP 143/70 02/19/19 09:00 Pulse Ox 100 02/19/19 09:00 Intake & Output 02/18/19 02/18/19 02/19/19 11:59 23:59 11:59 Intake Total 360 480 360 Output Total 250 550 350 Balance 110 -70 10 Weight 90.401 kg 92.306 kg Intake: Oral 360 480 360 Output: Urine 250 550 350 Other: Voiding Method Bedside Commode Bedpan # Bowel Movements 0 General: Alert, Oriented to Person, Oriented to Place, Oriented to Time, Mild distress HEENT: Atraumatic, PERRLA, EOMI, Mouth Mucous membr. moist/[place] Neck: Supple, No JVD Lungs: Clear to auscultation Cardiovascular: Regular rate Abdomen: Normal bowel sounds, Soft, No tenderness Extremities: No clubbing, No cyanosis. No: No edema (1+ edema BLE) Skin: Normal, Warm, Dry Neurological: Normal speech, Strength Equal Bilat, Generalized Weakness. No: Right Sided Weakness, Left Sided Weakness Psych/Mental Status: Mental status NL, Mood NL, Appropriate Affect, Intact Judgment - Results Results: Laboratory Results WBC 4.30 K/ul (4.00-12.00) 02/19/19 04:45 RBC 2.51 M/ul (3.90-5.20) L 02/19/19 04:45 Hgb 7.3 g/dL (11.5-16.0) L 02/19/19 04:45 Hct 22.1 % (34.5-46.5) L 02/19/19 04:45 MCV 88.0 fl (80.0-100.0) 02/19/19 04:45 MCH 29.2 pg (28.0-34.0) 02/19/19 04:45 MCHC 33.2 g/dL (30.0-36.0) 02/19/19 04:45 RDW 15.6 % (11.3-14.3) H 02/19/19 04:45 Plt Count 175 K/mm3 (130-400) 02/19/19 04:45 Neut % (Auto) Not Reportable 02/13/19 06:30 Lymph % (Auto) Not Reportable 02/13/19 06:30 [place] % (Auto) Not Reportable 02/13/19 06:30 Eos % (Auto) Not Reportable 02/13/19 06:30 Baso % (Auto) Not Reportable 02/13/19 06:30 Neut # (Auto) 3.0 # k/uL (1.4-7.7) 02/18/19 13:35 Lymph # (Auto) 0.7 # k/uL (0.6-4.0) 02/18/19 13:35 [place] # (Auto) 0.5 # k/uL (0.0-0.9) 02/18/19 13:35 Eos # (Auto) 0.2 # k/uL (0.0-0.6) 02/18/19 13:35 Baso # (Auto) 0.0 # k/uL (0.0-0.5) 02/18/19 13:35 Seg Neutrophils % 71 % (39-79) 02/18/19 13:35 Lymphocytes % 20 % (16-50) 02/18/19 13:35 Monocytes % 6 % (0-11) 02/18/19 13:35 Eosinophils % 3 % (0-7) 02/18/19 13:35 Basophils % 1 % (0-2) 02/15/19 09:12 Metamyelocytes % 2 % (0-0) H 02/15/19 09:12 Myelocytes % 1 % (0-0) H 02/15/19 09:12 Plt Morphology Comment Normal (NORMAL) 02/18/19 13:35 Polychromasia 1+ (NEGATIVE) H 02/15/19 09:12 Hypochromasia 2+ (NEGATIVE) H 02/18/19 13:35 Anisocytosis 1+ (NEGATIVE) H 02/18/19 13:35 Tear Drop Cells 1+ (NEGATIVE) H 02/18/19 13:35 Ovalocytes 1+ (NEGATIVE) H 02/18/19 13:35 RBC Morph Comment Abnormal (NORMAL) H 02/18/19 13:35 Sodium 138 mmol/L (137-145) 02/19/19 04:45 Potassium 4.1 mmol/L (3.5-5.1) 02/19/19 04:45 Chloride 105 mmol/L (98-107) 02/19/19 04:45 Carbon Dioxide 29 mmol/L (22-30) 02/19/19 04:45 Anion Gap 8.1 02/19/19 04:45 BUN 22 mg/dL (7-17) H 02/19/19 04:45 Creatinine 0.97 mg/dL (0.52-1.04) 02/19/19 04:45 Estimated Creat Clear 86 02/19/19 04:45 Est GFR ( Amer) > 60 (60-) 02/19/19 04:45 Est GFR (Non-Af Amer) > 60 (60-) 02/19/19 04:45 Glucose 98 mg/dL (74-106) 02/19/19 04:45 Calcium 8.6 mg/dL (8.4-10.2) 02/19/19 04:45 Total Bilirubin 0.5 mg/dL (0.2-1.3) 02/19/19 04:45 AST 65 U/L (15-46) H 02/19/19 04:45 ALT 23 U/L (4-35) 02/19/19 04:45 Alkaline Phosphatase 61 U/L (38-126) 02/19/19 04:45 Troponin I 0.013 ng/mL (0.012-0.034) 02/16/19 19:00 NT-Pro-B Natriuret Pep 1562.0 pg/mL (15.0-125.5) H 02/18/19 13:35 Total Protein 5.4 g/dL (6.3-8.2) L 02/19/19 04:45 Albumin 2.5 g/dL (3.5-5.0) L 02/19/19 04:45 Assessment/Plan - Assessment/Plan (1) Acute exacerbation of CHF (congestive heart failure) Status: Acute Current Visit: No Qualifiers: Heart failure type: combined systolic and diastolic Qualified Code(s): I50.43 - Acute on chronic combined systolic (congestive) and diastolic ( congestive) heart failure Assessment: currently tolerating diuresis well (2) Acute renal failure Status: Acute Current Visit: No Qualifiers: Acute renal failure type: unspecified Qualified Code(s): N17.9 - Acute kidney failure, unspecified Assessment: Markedly improved (3) Anemia Status: Acute Current Visit: No Qualifiers: Anemia type: unspecified type Qualified Code(s): D64.9 - Anemia, unspecified Assessment: Worsened Plan: Reviewed iron studies ordered by Dr. Thompson ([facility]) Transfuse two units of packed red blood cells Send a peripheral smear for pathology review. Check CBC in am. Continue to hold Xarelto and Lovenox Guiac all stools. (4) Bilateral pneumonia Status: Acute Current Visit: No Qualifiers: Pneumonia type: due to other aerobic Gram-negative bacteria Lung location: lower lobe of lung Qualified Code(s): J15.6 - Pneumonia due to other Gram- negative bacteria Assessment: has finished antibiotics
[2019-02-19] MEDS: FLUTICASONE/SALMETEROL 250-50 INHALER IH SCH ×2 (09:40→21:18)
[2019-02-19] MEDS: CITALOPRAM HYDROBROMIDE 20 MG TABLET PO SCH (09:40)
[2019-02-19] MEDS: DOCUSATE SODIUM 100 MG CAPSULE PO SCH (09:40)
[2019-02-19] MEDS: POTASSIUM CHLORIDE 20 MEQ TABLET.ER PO SCH (09:40)
[2019-02-19] MEDS: SODIUM CHLORIDE 0.9% 1 NASAL SPRAY BTL IEN SCH ×4 (09:41→21:17)
[2019-02-19] MEDS: GABAPENTIN 100 MG CAPSULE PO SCH ×3 (09:41→21:17)
[2019-02-19] MEDS ORDERED: FUROSEMIDE 20 MG/2 ML VIAL IVP ONE (09:45)
[2019-02-19] MEDS ORDERED: 0.9 % SODIUM CHLORIDE 500 ML IV ONE (10:14)
[2019-02-19] MEDS: ENOXAPARIN SODIUM 40 MG/0.4 ML DISP.SYRIN SQ SCH (10:21)
[2019-02-19] MEDS: cefTRIAXone SODIUM 1 GM in 0.9 % SODIUM CHLORIDE 50 ML IV SCH (10:21)
[2019-02-19] MEDS: FERROUS SULFATE 325 MG TABLET PO SCH ×2 (11:09→18:34)
[2019-02-19] MEDS ORDERED: FUROSEMIDE 40 MG/4 ML VIAL IVP ONE (20:20)
[2019-02-20] MEDS: IPRATROPIUM/ALBUTEROL SULFATE 3 ML AMPUL.NEB NEB PRN ×2 (02:04→05:35)
[2019-02-20] MEDS: FLUTICASONE/SALMETEROL 250-50 INHALER IH SCH ×2 (08:22→20:55)
[2019-02-20] MEDS: CITALOPRAM HYDROBROMIDE 20 MG TABLET PO SCH (08:23)
[2019-02-20] MEDS: POTASSIUM CHLORIDE 20 MEQ TABLET.ER PO SCH (08:23)
[2019-02-20] MEDS: DOCUSATE SODIUM 100 MG CAPSULE PO SCH ×2 (08:23→08:30)
[2019-02-20] MEDS: GABAPENTIN 100 MG CAPSULE PO SCH ×3 (08:24→20:54)
[2019-02-20] MEDS: FUROSEMIDE 40 MG/4 ML VIAL IVP SCH (08:31)
[2019-02-20] MEDS: SODIUM CHLORIDE 0.9% 1 NASAL SPRAY BTL IEN SCH ×4 (08:36→21:18)
[2019-02-20] MEDS: IPRATROPIUM/ALBUTEROL SULFATE 3 ML AMPUL.NEB NEB SCH ×4 (08:40→21:07)
--- NOTE | 2019-02-20 10:32 | Inpatient Progress Note ---
Subjective - Required Recertification Statement I anticipate X number of days because-include discharge plan: 1 - Review of Systems Events since last encounter: I called [facility] and spoke with Dr. Galeano and they have agreed to take Melverine as an admission there tomorrow morning, and we are to put her on clear liquids today. They will prep here there and proceed with EGD and colonoscopy on February 22. General: Fatigue, Malaise. Denies: Chills HEENT: Denies: Head Aches Pulmonary: Denies: Dyspnea, Cough Cardiovascular: Denies: Chest Pain Gastrointestinal: Denies: Nausea, Vomiting Genitourinary: Denies: Dysuria Musculoskeletal: Denies: Neck Pain Neurological: Weakness. Denies: Change in Speech, Confusion Objective - Exam Vitals and I&O: Vital Signs Temp 98.5 F 02/20/19 09:00 Pulse 86 02/20/19 09:00 Resp 20 02/20/19 09:00 BP 158/78 02/20/19 09:00 Pulse Ox 99 02/20/19 09:00 Intake & Output 02/19/19 02/19/19 02/20/19 11:59 23:59 11:59 Intake Total 360 350 600 Output Total 1300 1225 1025 Balance -940 -875 -425 Weight 92.306 kg 88.587 kg Intake: Oral 360 350 600 Output: Urine 1300 1225 1025 Other: Voiding Method Bedpan Bedpan # Voids 1 1 # Bowel Movements 0 0 1 General: Alert, Oriented to Person, Oriented to Place, Oriented to Time, Cooperative, No acute distress HEENT: Atraumatic, PERRLA Neck: Supple, No JVD Lungs: Normal air movement Cardiovascular: Regular rate Abdomen: Normal bowel sounds, Soft, No tenderness Extremities: No clubbing, No cyanosis. No: No edema (2+ edema) Skin: Normal, Warm Neurological: Normal speech, Strength Equal Bilat Psych/Mental Status: Mental status NL (but depressed) - Results Results: Laboratory Results WBC 4.30 K/ul (4.00-12.00) 02/20/19 05:30 RBC 3.18 M/ul (3.90-5.20) L 02/20/19 05:30 Hgb 9.2 g/dL (11.5-16.0) L 02/20/19 05:30 Hct 27.5 % (34.5-46.5) L 02/20/19 05:30 MCV 86.0 fl (80.0-100.0) 02/20/19 05:30 MCH 29.1 pg (28.0-34.0) 02/20/19 05:30 MCHC 33.7 g/dL (30.0-36.0) 02/20/19 05:30 RDW 15.0 % (11.3-14.3) H 02/20/19 05:30 Plt Count 171 K/mm3 (130-400) 02/20/19 05:30 Neut % (Auto) Not Reportable 02/13/19 06:30 Lymph % (Auto) Not Reportable 02/13/19 06:30 [place] % (Auto) Not Reportable 02/13/19 06:30 Eos % (Auto) Not Reportable 02/13/19 06:30 Baso % (Auto) Not Reportable 02/13/19 06:30 Neut # (Auto) 3.0 # k/uL (1.4-7.7) 02/18/19 13:35 Lymph # (Auto) 0.7 # k/uL (0.6-4.0) 02/18/19 13:35 [place] # (Auto) 0.5 # k/uL (0.0-0.9) 02/18/19 13:35 Eos # (Auto) 0.2 # k/uL (0.0-0.6) 02/18/19 13:35 Baso # (Auto) 0.0 # k/uL (0.0-0.5) 02/18/19 13:35 Seg Neutrophils % 71 % (39-79) 02/18/19 13:35 Lymphocytes % 20 % (16-50) 02/18/19 13:35 Monocytes % 6 % (0-11) 02/18/19 13:35 Eosinophils % 3 % (0-7) 02/18/19 13:35 Basophils % 1 % (0-2) 02/15/19 09:12 Metamyelocytes % 2 % (0-0) H 02/15/19 09:12 Myelocytes % 1 % (0-0) H 02/15/19 09:12 Plt Morphology Comment Normal (NORMAL) 02/18/19 13:35 Polychromasia 1+ (NEGATIVE) H 02/15/19 09:12 Hypochromasia 2+ (NEGATIVE) H 02/18/19 13:35 Anisocytosis 1+ (NEGATIVE) H 02/18/19 13:35 Tear Drop Cells 1+ (NEGATIVE) H 02/18/19 13:35 Ovalocytes 1+ (NEGATIVE) H 02/18/19 13:35 RBC Morph Comment Abnormal (NORMAL) H 02/18/19 13:35 Sodium 138 mmol/L (137-145) 02/19/19 04:45 Potassium 4.1 mmol/L (3.5-5.1) 02/19/19 04:45 Chloride 105 mmol/L (98-107) 02/19/19 04:45 Carbon Dioxide 29 mmol/L (22-30) 02/19/19 04:45 Anion Gap 8.1 02/19/19 04:45 BUN 22 mg/dL (7-17) H 02/19/19 04:45 Creatinine 0.97 mg/dL (0.52-1.04) 02/19/19 04:45 Estimated Creat Clear 86 02/19/19 04:45 Est GFR ( Amer) > 60 (60-) 02/19/19 04:45 Est GFR (Non-Af Amer) > 60 (60-) 02/19/19 04:45 Glucose 98 mg/dL (74-106) 02/19/19 04:45 Calcium 8.6 mg/dL (8.4-10.2) 02/19/19 04:45 Total Bilirubin 0.5 mg/dL (0.2-1.3) 02/19/19 04:45 AST 65 U/L (15-46) H 02/19/19 04:45 ALT 23 U/L (4-35) 02/19/19 04:45 Alkaline Phosphatase 61 U/L (38-126) 02/19/19 04:45 Troponin I 0.013 ng/mL (0.012-0.034) 02/16/19 19:00 NT-Pro-B Natriuret Pep 1562.0 pg/mL (15.0-125.5) H 02/18/19 13:35 Total Protein 5.4 g/dL (6.3-8.2) L 02/19/19 04:45 Albumin 2.5 g/dL (3.5-5.0) L 02/19/19 04:45 Occult Blood (ICT) #2 Positive (NEGATIVE) H 02/20/19 10:02 Stool Guaiac Test Positive (NEGATIVE) H 02/20/19 08:30 Assessment/Plan - Assessment/Plan (1) Anemia Status: Acute Current Visit: No Qualifiers: Anemia type: unspecified type Qualified Code(s): D64.9 - Anemia, unspecified Assessment: Check CBC in am Continue to hold Xarelto Transfer to tomorrow for EGD/Colonoscopy (2) Acute exacerbation of CHF (congestive heart failure) Status: Acute Current Visit: No Qualifiers: Heart failure type: combined systolic and diastolic Qualified Code(s): I50.43 - Acute on chronic combined systolic (congestive) and diastolic (congestive) heart failure Assessment: Improved (3) Acute renal failure Status: Acute Current Visit: No Qualifiers: Acute renal failure type: unspecified Qualified Code(s): N17.9 - Acute kidney failure, unspecified Assessment: Improved Will check CMP in am (4) Bilateral pneumonia Status: Acute Current Visit: No Qualifiers: Pneumonia type: due to other aerobic Gram-negative bacteria Lung location: lower lobe of lung Qualified Code(s): J15.6 - Pneumonia due to other Gram- negative bacteria Assessment: Has finished antibiotics
[2019-02-20] MEDS: FERROUS SULFATE 325 MG TABLET PO SCH ×2 (12:55→17:49)
[2019-02-20] MEDS: PANTOPRAZOLE SODIUM 40 MG TABLET.DR PO SCH ×2 (12:55→17:43)
[2019-02-20] MEDS: guaiFENesin DM 100 MG/10 MG/5 ML 118ML BOTTLE PO PRN (21:03)
[2019-02-21] MEDS: PANTOPRAZOLE SODIUM 40 MG TABLET.DR PO SCH (06:46)
[2019-02-21 07:11] LABS: eGFR (Non-African) > 60
[2019-02-21] MEDS: IPRATROPIUM/ALBUTEROL SULFATE 3 ML AMPUL.NEB NEB SCH (08:15)
[2019-02-21 09:08] VITALS: BP 163/92
--- NOTE | 2019-03-19 10:17 | Discharge Summary ---
Discharge Summary - Discharge [facility] Admission Date: 02/12/19 Discharge Date: 02/21/19 Discharge To: Other (transferred to ) Condition at Discharge: Stable Home Medications: Ambulatory Orders Medication Instructions Recorded Albuterol Sulfate [Proair HFA] 2 inh IH Q6H PRN 03/05/19 Calcium Carbonate/Vitamin D3 1 each PO DAILY 03/05/19 [Calcium 600-Vit D3 400 Tablet] Citalopram Hydrobromide 20 mg PO DAILY 03/05/19 [Citalopram HBr] Ferrous Sulfate [Iron] 325 mg PO BS 03/05/19 Fluticasone Propion/Salmeterol 1 each INH BID 03/05/19 [Advair 250-50 Diskus] Furosemide [Lasix] 20 mg PO 714 03/05/19 Gabapentin [Neurontin] 100 mg PO BID 03/05/19 Ipratropium/Albuterol Sulfate 3 ml NEB Q6 03/05/19 [Duoneb] Lisinopril [Prinivil] 20 mg PO QD 03/05/19 Metoprolol Tartrate [Lopressor] 25 mg PO BID 03/05/19 Pantoprazole Sodium [Protonix] 40 mg PO 717 03/05/19 Potassium Chloride [Klor-Con 10] 10 meq PO BID 03/05/19 Rivaroxaban [Xarelto] 15 mg PO 1700 03/05/19 oxyCODONE HCL/ACETAMINOPHEN 1 each PO BID PRN 03/05/19 [Percocet 5-325 mg Tablet] Consultations this Visit: Other (Therapy) Procedures this Visit: Transfusion (2 units PRBC) Allergies/Adverse Reactions: Allergies Allergy/AdvReac Type Severity Reaction Status Date / Time ciprofloxacin AdvReac Severe Shakiness Verified 10/31/18 15:35
--- NOTE | 2019-03-19 10:17 | History and Physical Report ---
History of Present Illnes - History of Present Illness Reason for Visit: Anemia, acute renal failure, congestive heart failure History of Present Illness: Jewels is admitted through the ER for increased shortness of breath and anemia. In addition, she is in acute renal failure. He hemoglobin is 8.3, and will need to be followed closely in case it drops and she needs transfusion. Judicious hydration will be undertaken to improve her renal function also. - Past Medical History Cardiac: AFIB, CHF, HTN Pulmonary: Asthma, Sleep Apnea (obstructive) Musculoskeletal: Osteoarthritis ENT: Allergic rhinitis Renal/: Chronic renal failure (stage 4) - Past Surgical History Past Surgical History: Tubal Ligation, Other (D&C for post menopausal bleeding) - Past Social History Smoke: No Occupation: retired hairdresser Alcohol: None Drugs: None Lives: Alone Domestic Violence: Negative - Health Maintenance Health Maintenance: Cholesterol, Pneumococcal Vaccine Influenza Vaccine: Current for this Influenza Season Pneumonia Vaccine: Yes Resuscitation Status: Resusciation Status Resuscitation Status Full Code - Unable to Obtain History Unable to Obtain: No Review of Systems - Review of Systems Constitutional: Weakness, Malaise. negative: Fever, Chills Eyes: negative: pain ENT: negative: Ear Pain Respiratory: Cough, Shortness of Breath Cardiovascular: negative: Chest Pain Gastrointestinal: negative: Nausea, Vomiting Genitourinary: negative: Dysuria Musculoskeletal: negative: Neck Pain Skin: negative: Rash Neurological: Weakness. negative: Change in Speech - Medications/Allergies Allergies/Adverse Reactions: Allergies Allergy/AdvReac Type Severity Reaction Status Date / Time ciprofloxacin AdvReac Severe Shakiness Verified 10/31/18 15:35 Exam - Exam General: Alert, Oriented to Person, Oriented to Place, Oriented to Time HEENT: Atraumatic, PERRLA, EOMI Neck: No: Stridor Lungs: Wheezes, Rales Cardiovascular: Regular rate Murmur: Systolic Murmur Heart Murmur Grade: II Abdomen: Normal bowel sounds, Soft, No tenderness Genitourinary: No: Other Male Genitourinary: No: Other Female Genitourinary: No: Other Integumentary: Normal, Warm Extremities: No clubbing, No cyanosis. No: No edema (3+ edema) Neurological: Normal speech Psych/Mental Status: Mental status NL, Intact Judgment - Laboratory Results Laboratory Results: Laboratory Results 02/13/19 02/13/19 02/15/19 06:30 06:30 09:12 WBC 5.30 4.40 RBC 2.89 L 2.86 L Hgb 8.5 L 8.3 L Hct 26.5 L 26.2 L MCV 92.0 92.0 MCH 29.4 29.1 MCHC 32.1 31.8 RDW 15.1 H 15.3 H Plt Count 142 161 Neut % (Auto) Not Reportable Lymph % (Auto) Not Reportable [facility] % (Auto) Not Reportable Eos % (Auto) Not Reportable Baso % (Auto) Not Reportable Neut # (Auto) Not Reportable 2.8 Lymph # (Auto) Not Reportable 0.8 [facility] # (Auto) Not Reportable 0.6 Eos # (Auto) Not Reportable 0.2 Baso # (Auto) Not Reportable 0.0 Seg Neutrophils % 70 67 Lymphocytes % 22 11 L Monocytes % 5 13 H Eosinophils % 3 5 Basophils % 1 Metamyelocytes % 2 H Myelocytes % 1 H Plt Morphology Comment Normal Normal Polychromasia 1+ H Hypochromasia 2+ H 2+ H Anisocytosis 1+ H 1+ H Tear Drop Cells 1+ H Ovalocytes RBC Morph Comment Abnormal H Abnormal H Sodium 138 Potassium 4.5 Chloride 110 H Carbon Dioxide 25 Anion Gap 7.5 BUN 21 H Creatinine 1.05 H Estimated Creat Clear 70 Est GFR ( Amer) > 60 Est GFR (Non-Af Amer) > 60 Glucose 92 Calcium 9.0 Total Bilirubin 0.6 AST 63 H ALT 27 Alkaline Phosphatase 73 Troponin I NT-Pro-B Natriuret Pep Total Protein 6.5 Albumin 2.9 L Occult Blood (ICT) #2 Stool Guaiac Test 02/15/19 02/16/19 02/16/19 09:12 17:22 19:00 WBC RBC Hgb Hct MCV MCH MCHC RDW Plt Count Neut % (Auto) Lymph % (Auto) [facility] % (Auto) Eos % (Auto) Baso % (Auto) Neut # (Auto) Lymph # (Auto) [facility] # (Auto) Eos # (Auto) Baso # (Auto) Seg Neutrophils % Lymphocytes % Monocytes % Eosinophils % Basophils % Metamyelocytes % Myelocytes % Plt Morphology Comment Polychromasia Hypochromasia Anisocytosis Tear Drop Cells Ovalocytes RBC Morph Comment Sodium 141 Potassium 4.6 Chloride 109 H Carbon Dioxide 28 Anion Gap 8.6 BUN 17 Creatinine 0.89 Estimated Creat Clear 92 Est GFR ( Amer) > 60 Est GFR (Non-Af Amer) > 60 Glucose 106 Calcium 8.9 Total Bilirubin 0.6 AST 58 H ALT 28 Alkaline Phosphatase 79 Troponin I < 0.012 L 0.013 NT-Pro-B Natriuret Pep 1137.0 H Total Protein 5.5 L Albumin 2.8 L Occult Blood (ICT) #2 Stool Guaiac Test 02/17/19 02/17/19 02/18/19 06:10 06:10 13:35 WBC 4.80 4.40 RBC 2.57 L 2.63 L Hgb 7.6 L 7.8 L Hct 22.7 L 23.0 L MCV 88.0 88.0 MCH 29.4 29.6 MCHC 33.4 33.8 RDW 14.7 H 14.6 H Plt Count 162 189 Neut % (Auto) Lymph % (Auto) [facility] % (Auto) Eos % (Auto) Baso % (Auto) Neut # (Auto) 3.0 Lymph # (Auto) 0.7 [facility] # (Auto) 0.5 Eos # (Auto) 0.2 Baso # (Auto) 0.0 Seg Neutrophils % 71 Lymphocytes % 20 Monocytes % 6 Eosinophils % 3 Basophils % Metamyelocytes % Myelocytes % Plt Morphology Comment Normal Polychromasia Hypochromasia 2+ H Anisocytosis 1+ H Tear Drop Cells 1+ H Ovalocytes 1+ H RBC Morph Comment Abnormal H Sodium 139 Potassium 4.6 Chloride 107 Carbon Dioxide 30 Anion Gap 6.6 BUN 19 H Creatinine 0.95 Estimated Creat Clear 88 Est GFR ( Amer) > 60 Est GFR (Non-Af Amer) > 60 Glucose 93 Calcium 8.7 Total Bilirubin 0.8 AST 69 H ALT 26 Alkaline Phosphatase 62 Troponin I NT-Pro-B Natriuret Pep 1539.9 H Total Protein 5.5 L Albumin 2.6 L Occult Blood (ICT) #2 Stool Guaiac Test 02/18/19 02/19/19 02/19/19 13:35 04:45 04:45 WBC 4.30 RBC 2.51 L Hgb 7.3 L Hct 22.1 L MCV 88.0 MCH 29.2 MCHC 33.2 RDW 15.6 H Plt Count 175 Neut % (Auto) Lymph % (Auto) [facility] % (Auto) Eos % (Auto) Baso % (Auto) Neut # (Auto) Lymph # (Auto) [facility] # (Auto) Eos # (Auto) Baso # (Auto) Seg Neutrophils % Lymphocytes % Monocytes % Eosinophils % Basophils % Metamyelocytes % Myelocytes % Plt Morphology Comment Polychromasia Hypochromasia Anisocytosis Tear Drop Cells Ovalocytes RBC Morph Comment Sodium 138 138 Potassium 4.0 4.1 Chloride 104 105 Carbon Dioxide 28 29 Anion Gap 10.0 8.1 BUN 21 H 22 H Creatinine 0.96 0.97 Estimated Creat Clear 87 86 Est GFR ( Amer) > 60 > 60 Est GFR (Non-Af Amer) > 60 > 60 Glucose 118 H 98 Calcium 8.6 8.6 Total Bilirubin 0.5 0.5 AST 64 H 65 H ALT 25 23 Alkaline Phosphatase 66 61 Troponin I NT-Pro-B Natriuret Pep 1562.0 H Total Protein 5.8 L 5.4 L Albumin 2.7 L 2.5 L Occult Blood (ICT) #2 Stool Guaiac Test 02/20/19 02/20/19 02/20/19 05:30 08:30 10:02 WBC 4.30 RBC 3.18 L Hgb 9.2 L Hct 27.5 L MCV 86.0 MCH 29.1 MCHC 33.7 RDW 15.0 H Plt Count 171 Neut % (Auto) Lymph % (Auto) [facility] % (Auto) Eos % (Auto) Baso % (Auto) Neut # (Auto) Lymph # (Auto) [facility] # (Auto) Eos # (Auto) Baso # (Auto) Seg Neutrophils % Lymphocytes % Monocytes % Eosinophils % Basophils % Metamyelocytes % Myelocytes % Plt Morphology Comment Polychromasia Hypochromasia Anisocytosis Tear Drop Cells Ovalocytes RBC Morph Comment Sodium Potassium Chloride Carbon Dioxide Anion Gap BUN Creatinine Estimated Creat Clear Est GFR ( Amer) Est GFR (Non-Af Amer) Glucose Calcium Total Bilirubin AST ALT Alkaline Phosphatase Troponin I NT-Pro-B Natriuret Pep Total Protein Albumin Occult Blood (ICT) #2 Positive H Stool Guaiac Test Positive H 02/21/19 02/21/19 06:58 06:58 WBC 4.20 RBC 3.28 L Hgb 9.4 L Hct 28.3 L MCV 86.0 MCH 28.8 MCHC 33.3 RDW 15.3 H Plt Count 180 Neut % (Auto) Lymph % (Auto) [facility] % (Auto) Eos % (Auto) Baso % (Auto) Neut # (Auto) Lymph # (Auto) [facility] # (Auto) Eos # (Auto) Baso # (Auto) Seg Neutrophils % Lymphocytes % Monocytes % Eosinophils % Basophils % Metamyelocytes % Myelocytes % Plt Morphology Comment Polychromasia Hypochromasia Anisocytosis Tear Drop Cells Ovalocytes RBC Morph Comment Sodium 138 Potassium 3.6 Chloride 103 Carbon Dioxide 32 H Anion Gap 6.6 BUN 17 Creatinine 0.87 Estimated Creat Clear 96 Est GFR ( Amer) > 60 Est GFR (Non-Af Amer) > 60 Glucose 92 Calcium 8.7 Total Bilirubin 1.0 AST 54 H ALT 23 Alkaline Phosphatase 57 Troponin I NT-Pro-B Natriuret Pep Total Protein 5.4 L Albumin 2.5 L Occult Blood (ICT) #2 Stool Guaiac Test Assessment/Plan - Assessment/Plan (1) Anemia Status: Acute Qualifiers: Anemia type: unspecified type Qualified Code(s): D64.9 - Anemia, unspecified (2) Acute exacerbation of CHF (congestive heart failure) Status: Acute Qualifiers: Heart failure type: combined systolic and diastolic Qualified Code(s): I50.43 - Acute on chronic combined systolic (congestive) and diastolic (congestive) heart failure (3) Acute renal failure Status: Acute Qualifiers: Acute renal failure type: unspecified Qualified Code(s): N17.9 - Acute kidney failure, unspecified (4) Bilateral pneumonia Status: Acute Qualifiers: Pneumonia type: due to other aerobic Gram-negative bacteria Lung location: lower lobe of lung Qualified Code(s): J15.6 - Pneumonia due to other Gram- negative bacteria VTE Assessment - RISK FACTOR SCORE VTE RISK FACTOR SCORES: AGE OVER 60 YEARS - RISK VTE MODERATE RISK: SCORE OF 2 (RISK PROXIMAL DVT 2-4%) PROPHYAXIS NEEDED (On Eliquis)
== END 2019-02-21 08:45 | disposition short-term general hospital (02) | DRG 177 ==
LOC: UNDOADMIN 16:42 → SOUTH 16:42 → UNDOADMIN 16:54
PROVIDERS: ADMIT Family Medicine; ATTEND Nurse Practitioner Family
PROC: 30233N1 Transfusion of Nonautologous Red Blood Cells into Peripheral Vein, Percutaneous Approach (ICD-10-PCS; principal; 2019-02-12)
DX: J15.6 Pneumonia due to other Gram-negative bacteria (principal); I50.43 Acute on chronic combined systolic (congestive) and diastolic (congestive) heart failure; I13.0 Hypertensive heart and chronic kidney disease with heart failure and stage 1 through stage 4 chronic kidney disease, or unspecified chronic kidney disease; N18.4 Chronic kidney disease, stage 4 (severe); N17.9 Acute kidney failure, unspecified; D63.1 Anemia in chronic kidney disease; I48.91 Unspecified atrial fibrillation; J45.909 Unspecified asthma, uncomplicated; G47.33 Obstructive sleep apnea (adult) (pediatric); M19.90 Unspecified osteoarthritis, unspecified site; Z79.899 Other long term (current) drug therapy; Z79.01 Long term (current) use of anticoagulants; Z88.1 Allergy status to other antibiotic agents; Z98.51 Tubal ligation status
CPT/HCPCS: 36415; 80053; 82270; 83880; 84484; 85025; 85027; 86885; 86900; 86901; 86920; 93005; 94640; 94760; 99221; 99231; 99238; J0696; J1650; J1940; J7060; P9040; A9270; S1016

== ENCOUNTER 2019-03-05 14:15 | Inpatient (IN) | payer OTHER ==
[2019-03-05 14:55] VITALS: BMI 25.3
[2019-03-05] MEDS ORDERED: ALBUTEROL 90MCG/PUFF INHALER IH PRN (15:19)
[2019-03-05] MEDS: LISINOPRIL 20 MG TABLET PO SCH (16:24)
[2019-03-05] MEDS: PANTOPRAZOLE SODIUM 40 MG TABLET.DR PO SCH (16:25)
[2019-03-05] MEDS: RIVAROXABAN 15 MG TABLET PO SCH (16:25)
[2019-03-05] MEDS: IPRATROPIUM/ALBUTEROL SULFATE 3 ML AMPUL.NEB NEB SCH (17:20)
[2019-03-05] MEDS: FERROUS SULFATE 325 MG TABLET PO SCH (17:40)
--- NOTE | 2019-03-05 18:42 | History and Physical Report ---
History of Present Illnes - History of Present Illness Reason for Visit: Skilled admission History of Present Illness: Jewels is back from after about a week there. In that time, she had an EGD, which showed erosive gastritis, as well as a colonoscopy which was unremarkable. She is able to do much more with ambulation. Her CHF is better compensated. It was noted that she had some cirrhosis on an u/s and she had a hepatitis panel done there, and it showed that she had antibodies to hepatitis C, however I don't see that a follow up viral load was performed. She is here for therapy with a plan to go home on discharge. - Past Medical History Cardiac: AFIB, CHF, HTN Pulmonary: Asthma, Sleep Apnea (obstructive) Musculoskeletal: Osteoarthritis ENT: Allergic rhinitis Renal/: Chronic renal failure (stage 4) - Past Surgical History Past Surgical History: Tubal Ligation, Other (D&C for post menopausal bleeding) - Past Social History Smoke: No Occupation: retired hairdresser Alcohol: None Drugs: None Lives: Alone Domestic Violence: Negative - Health Maintenance Health Maintenance: Cholesterol, Pneumococcal Vaccine Influenza Vaccine: Current for this Influenza Season Pneumonia Vaccine: Yes Resuscitation Status: Resusciation Status Resuscitation Status Full Code - Unable to Obtain History Unable to Obtain: No Review of Systems - Review of Systems Constitutional: Weakness. negative: Fever, Chills, Sweats Eyes: negative: pain ENT: negative: Ear Pain, Ear Discharge Respiratory: negative: Cough, Dry Cardiovascular: negative: Chest Pain Gastrointestinal: negative: Nausea, Vomiting Genitourinary: negative: Dysuria Musculoskeletal: negative: Neck Pain Skin: negative: Rash Neurological: Weakness. negative: Change in Speech, Confusion - Medications/Allergies Allergies/Adverse Reactions: Allergies Allergy/AdvReac Type Severity Reaction Status Date / Time ciprofloxacin AdvReac Severe Shakiness Verified 10/31/18 15:35 Home Medications: Home Medications Albuterol Sulfate [Proair HFA] 2 inh IH Q6H PRN 03/05/19 Calcium Carbonate/Vitamin D3 [Calcium 600-Vit D3 400 Tablet] 1 each PO DAILY 03/05/19 Citalopram Hydrobromide [Citalopram HBr] 20 mg PO DAILY 03/05/19 Ferrous Sulfate [Iron] 325 mg PO BS 03/05/19 Fluticasone Propion/Salmeterol [Advair 250-50 Diskus] 1 each INH BID 03/05/19 Furosemide [Lasix] 20 mg PO 714 03/05/19 Gabapentin [Neurontin] 100 mg PO BID 03/05/19 Ipratropium/Albuterol Sulfate [Duoneb] 3 ml NEB Q6 03/05/19 Lisinopril [Prinivil] 20 mg PO QD 03/05/19 Metoprolol Tartrate [Lopressor] 25 mg PO BID 03/05/19 Pantoprazole Sodium [Protonix] 40 mg PO 717 03/05/19 Potassium Chloride [Klor-Con 10] 10 meq PO BID 03/05/19 Rivaroxaban [Xarelto] 15 mg PO 1700 03/05/19 oxyCODONE HCL/ACETAMINOPHEN [Percocet 5-325 mg Tablet] 1 each PO BID PRN 03/05/19 Current Inpatient Medications: Current Inpatient Medications Albuterol Sulfate (Ventolin Hfa) 2 puff IH Q6H PRN PRN Reason: Wheezing Stop: 04/04/19 15:18 Albuterol/Ipratropium (Duoneb) 3 ml NEB Q6 [place] Stop: 04/04/19 17:59 Last Admin: 03/05/19 17:20 Dose: 3 ml Calcium/Vitamin D (Oscal + D 500mg/200unit) 1 each PO DAILY [place] Stop: 04/05/19 08:59 Citalopram Hydrobromide (Celexa) 20 mg PO DAILY [place] Stop: 04/05/19 08:59 Ferrous Sulfate (Feosol) 325 mg PO BS [facility] Stop: 04/04/19 17:59 Last Admin: 03/05/19 17:40 Dose: 325 mg Furosemide (Lasix) 20 mg PO 714 [place] Stop: 04/05/19 06:59 Gabapentin (Neurontin) 100 mg PO BID [place] Stop: 04/04/19 20:59 Lisinopril (Prinivil) 20 mg PO QDAY [place] Stop: 04/04/19 15:59 Last Admin: 03/05/19 16:24 Dose: 20 mg Metoprolol Tartrate (Lopressor) 25 mg PO BID [place] Stop: 04/04/19 20:59 Oxycodone/Acetaminophen (Percocet 5-325) 1 each PO BID PRN PRN Reason: PAIN Stop: 04/04/19 15:18 Pantoprazole Sodium (Protonix) 40 mg PO 717 [facility] Stop: 04/04/19 16:59 Last Admin: 03/05/19 16:25 Dose: 40 mg Potassium Chloride (Klor-Con 10) 10 meq PO BID [facility] Stop: 04/04/19 20:59 Rivaroxaban (Xarelto) 15 mg PO 1700 [facility] Stop: 04/04/19 16:59 Last Admin: 03/05/19 16:25 Dose: 15 mg Exam - Exam Vital Signs: Vital Signs (72 hours) 03/05/19 03/05/19 14:45 14:50 Temperature 98.4 F 98.4 F Pulse Rate [ 74 74 Left] Respiratory 22 22 Rate Blood Pressure 163/80 163/80 [Left Arm] O2 Sat by Pulse 94 94 Oximetry General: Alert, Oriented to Person, Oriented to Place, Oriented to Time, Obese HEENT: Atraumatic, PERRLA, EOMI Neck: No: Stridor, Rigidity Lungs: Clear to auscultation Cardiovascular: Regular rate, Murmur Murmur: Systolic Murmur Murmur Location: Left Sternal Boarder Heart Murmur Grade: II Abdomen: Normal bowel sounds, Soft, No tenderness Genitourinary: No: Other Male Genitourinary: No: Other Female Genitourinary: No: Other Integumentary: Normal, Warm. No: Rash Extremities: No: No edema Neurological: Normal speech Psych/Mental Status: Mental status NL Assessment/Plan - Assessment/Plan (1) Acute exacerbation of CHF (congestive heart failure) Status: Acute Current Visit: No Qualifiers: Heart failure type: combined systolic and diastolic Qualified Code(s): I50.43 - Acute on chronic combined systolic (congestive) and diastolic (congestive) heart failure Assessment: Continue current dose of diuretic (2) Anemia Status: Acute Current Visit: No Qualifiers: Anemia type: unspecified type Qualified Code(s): D64.9 - Anemia, unspecified Assessment: Check CBC in am May need Venofer (3) Elevated liver function tests Status: Acute Current Visit: No Assessment: Recheck Hepatitis C and viral load (4) Gastritis Status: Acute Current Visit: No Qualifiers: Gastritis type: other gastritis Chronicity: acute Gastritis bleeding: wi bleeding Qualified Code(s): K29.01 - Acute gastritis with bleeding Assessment: Continue PPI (5) Weakness Status: Acute Current Visit: No Assessment: PT/OT (6) Atrial fibrillation Status: Chronic Current Visit: No Qualifiers: Atrial fibrillation type: permanent Qualified Code(s): I48.21 - Permanent atrial fibrillation Assessment: Continue Xarelto VTE Assessment - RISK FACTOR SCORE VTE RISK FACTOR SCORES: AGE OVER 60 YEARS, OBESITY - RISK VTE MODERATE RISK: SCORE OF 2 (RISK PROXIMAL DVT 2-4%) PROPHYAXIS NEEDED (On Xarelto)
[2019-03-05] MEDS: FLUTICASONE/SALMETEROL 250-50 INHALER IH SCH (20:27)
[2019-03-05] MEDS: METOPROLOL TARTRATE 25 MG TABLET PO SCH (20:28)
[2019-03-05] MEDS: POTASSIUM CHLORIDE 10 MEQ TABLET.ER PO SCH (20:28)
[2019-03-05] MEDS: GABAPENTIN 100 MG CAPSULE PO SCH (20:28)
[2019-03-05] MEDS: oxyCODONE/ACETAMINOPHEN 5/325 TABLET PO PRN (20:30)
[2019-03-06] MEDS: IPRATROPIUM/ALBUTEROL SULFATE 3 ML AMPUL.NEB NEB SCH ×4 (00:12→17:54)
[2019-03-06] MEDS: FUROSEMIDE 20 MG TABLET PO SCH ×2 (06:15→14:48)
[2019-03-06] MEDS: PANTOPRAZOLE SODIUM 40 MG TABLET.DR PO SCH ×2 (06:15→16:52)
[2019-03-06 07:18] LABS: BASOPHILS % 0.5 % (0.0-1.5); NEUTROPHILS # 2.4 # k/uL (1.4-7.7)
[2019-03-06 07:23] LABS: eGFR (Non-African) > 60
[2019-03-06] MEDS: FERROUS SULFATE 325 MG TABLET PO SCH ×2 (08:53→17:54)
[2019-03-06] MEDS: FLUTICASONE/SALMETEROL 250-50 INHALER IH SCH ×2 (08:53→20:20)
[2019-03-06] MEDS: CITALOPRAM HYDROBROMIDE 20 MG TABLET PO SCH (08:53)
[2019-03-06] MEDS: CALCIUM/VIT D 500MG/200 UNIT TABLET PO SCH (08:54)
[2019-03-06] MEDS: POTASSIUM CHLORIDE 10 MEQ TABLET.ER PO SCH ×2 (08:54→20:21)
[2019-03-06] MEDS: LISINOPRIL 20 MG TABLET PO SCH (08:54)
[2019-03-06] MEDS: GABAPENTIN 100 MG CAPSULE PO SCH ×2 (08:54→20:21)
[2019-03-06] MEDS: METOPROLOL TARTRATE 25 MG TABLET PO SCH ×2 (08:54→20:21)
[2019-03-06] MEDS: oxyCODONE/ACETAMINOPHEN 5/325 TABLET PO PRN (14:48)
[2019-03-06] MEDS: RIVAROXABAN 15 MG TABLET PO SCH (16:52)
[2019-03-07] MEDS: IPRATROPIUM/ALBUTEROL SULFATE 3 ML AMPUL.NEB NEB SCH ×4 (00:09→18:30)
[2019-03-07] MEDS: PANTOPRAZOLE SODIUM 40 MG TABLET.DR PO SCH ×2 (06:02→17:31)
[2019-03-07] MEDS: FUROSEMIDE 20 MG TABLET PO SCH ×2 (06:02→12:57)
[2019-03-07] MEDS: CALCIUM/VIT D 500MG/200 UNIT TABLET PO SCH (08:48)
[2019-03-07] MEDS: GABAPENTIN 100 MG CAPSULE PO SCH ×2 (08:48→20:22)
[2019-03-07] MEDS: FLUTICASONE/SALMETEROL 250-50 INHALER IH SCH ×2 (08:48→20:22)
[2019-03-07] MEDS: LISINOPRIL 20 MG TABLET PO SCH (08:48)
[2019-03-07] MEDS: CITALOPRAM HYDROBROMIDE 20 MG TABLET PO SCH (08:48)
[2019-03-07] MEDS: METOPROLOL TARTRATE 25 MG TABLET PO SCH ×2 (08:48→20:22)
[2019-03-07] MEDS: FERROUS SULFATE 325 MG TABLET PO SCH ×2 (08:48→17:31)
[2019-03-07] MEDS: POTASSIUM CHLORIDE 20 MEQ TABLET.ER PO SCH ×2 (08:51→20:22)
[2019-03-07] MEDS: oxyCODONE/ACETAMINOPHEN 5/325 TABLET PO PRN (12:57)
--- NOTE | 2019-03-07 17:14 | Inpatient Progress Note ---
Subjective - Required Recertification Statement I anticipate X number of days because-include discharge plan: 5 - Review of Systems Events since last encounter: Jewels is remarkably improved from her last visit and since her admission on Tuesday. She is ambulating well. She appears to be much less depressed. Her labs look good with the exception of her potassium being 3.4 General: Denies: Chills HEENT: Denies: Head Aches Pulmonary: Dyspnea, Cough Cardiovascular: Denies: Chest Pain Gastrointestinal: Denies: Nausea, Vomiting Genitourinary: Denies: Dysuria Musculoskeletal: Denies: Neck Pain Neurological: Weakness. Denies: Confusion Objective - Exam Vitals and I&O: Vital Signs Temp 96.8 F L 03/07/19 09:00 Pulse 82 03/07/19 09:00 Resp 20 03/07/19 09:00 BP 134/73 03/07/19 09:00 Pulse Ox 98 03/07/19 09:00 Intake & Output 03/06/19 03/07/19 03/07/19 23:59 11:59 23:59 Intake Total 720 360 240 Balance 720 360 240 Intake: Oral 720 360 240 Other: Voiding Method Toilet Toilet # Bowel Movements 0 1 General: Alert, Oriented to Person, Oriented to Place HEENT: Atraumatic, PERRLA Neck: Supple, No JVD Lungs: Clear to auscultation Cardiovascular: Regular rate Abdomen: Normal bowel sounds Extremities: No clubbing. No: No edema (2+) Skin: Normal, Warm, Dry Neurological: Normal speech Psych/Mental Status: Mental status NL - Results Results: Laboratory Results WBC 4.20 K/ul (4.00-12.00) 03/06/19 06:45 RBC 3.35 M/ul (3.90-5.20) L 03/06/19 06:45 Hgb 9.6 g/dL (11.5-16.0) L 03/06/19 06:45 Hct 30.4 % (34.5-46.5) L 03/06/19 06:45 MCV 91.0 fl (80.0-100.0) 03/06/19 06:45 MCH 28.8 pg (28.0-34.0) 03/06/19 06:45 MCHC 31.7 g/dL (30.0-36.0) 03/06/19 06:45 RDW 14.8 % (11.3-14.3) H 03/06/19 06:45 Plt Count 245 K/mm3 (130-400) 03/06/19 06:45 Neut % (Auto) 58.5 % (39.0-79.0) 03/06/19 06:45 Lymph % (Auto) 24.6 % (16.0-50.0) 03/06/19 06:45 [place] % (Auto) 11.3 % (0.0-11.0) H 03/06/19 06:45 Eos % (Auto) 5.1 % (0.0-6.8) 03/06/19 06:45 Baso % (Auto) 0.5 % (0.0-1.5) 03/06/19 06:45 Neut # (Auto) 2.4 # k/uL (1.4-7.7) 03/06/19 06:45 Lymph # (Auto) 1.0 # k/uL (0.6-4.0) 03/06/19 06:45 [place] # (Auto) 0.5 # k/uL (0.0-0.9) 03/06/19 06:45 Eos # (Auto) 0.2 # k/uL (0.0-0.6) 03/06/19 06:45 Baso # (Auto) 0.0 # k/uL (0.0-0.5) 03/06/19 06:45 Sodium 141 mmol/L (137-145) 03/06/19 06:45 Potassium 3.4 mmol/L (3.5-5.1) L 03/06/19 06:45 Chloride 107 mmol/L (98-107) 03/06/19 06:45 Carbon Dioxide 32 mmol/L (22-30) H 03/06/19 06:45 Anion Gap 5.4 03/06/19 06:45 BUN 19 mg/dL (7-17) H 03/06/19 06:45 Creatinine 0.98 mg/dL (0.52-1.04) 03/06/19 06:45 Estimated Creat Clear 57 03/06/19 06:45 Est GFR ( Amer) > 60 (60-) 03/06/19 06:45 Est GFR (Non-Af Amer) > 60 (60-) 03/06/19 06:45 Glucose 95 mg/dL (74-106) 03/06/19 06:45 Calcium 8.7 mg/dL (8.4-10.2) 03/06/19 06:45 Total Bilirubin 0.5 mg/dL (0.2-1.3) 03/06/19 06:45 AST 94 U/L (15-46) H 03/06/19 06:45 ALT 33 U/L (4-35) 03/06/19 06:45 Alkaline Phosphatase 90 U/L (38-126) 03/06/19 06:45 Total Protein 5.7 g/dL (6.3-8.2) L 03/06/19 06:45 Albumin 2.6 g/dL (3.5-5.0) L 03/06/19 06:45 Assessment/Plan - Assessment/Plan (1) Acute exacerbation of CHF (congestive heart failure) Status: Acute Current Visit: No Qualifiers: Heart failure type: combined systolic and diastolic Qualified Code(s): I50.43 - Acute on chronic combined systolic (congestive) and diastolic (congestive) heart failure Assessment: Continue current dose of lasix (2) Anemia Status: Acute Current Visit: No Qualifiers: Anemia type: unspecified type Qualified Code(s): D64.9 - Anemia, unspecified Assessment: Continue to follow hemoglobin and PPI for gastric prophylaxis (3) Elevated liver function tests Status: Acute Current Visit: No Assessment: Will check Hepatitis C (4) Gastritis Status: Acute Current Visit: No Qualifiers: Gastritis type: other gastritis Chronicity: acute Gastritis bleeding: with bleeding Qualified Code(s): K29.01 - Acute gastritis with bleeding Assessment: Continue PPI (5) Weakness Status: Acute Current Visit: No Assessment: PT/OT (6) Atrial fibrillation Status: Chronic Current Visit: No Qualifiers: Atrial fibrillation type: permanent Qualified Code(s): I48.21 - Permanent atrial fibrillation Assessment: Continue Xarelto
[2019-03-07] MEDS: RIVAROXABAN 15 MG TABLET PO SCH (17:31)
[2019-03-08] MEDS: IPRATROPIUM/ALBUTEROL SULFATE 3 ML AMPUL.NEB NEB SCH ×5 (00:03→23:04)
[2019-03-08] MEDS: PANTOPRAZOLE SODIUM 40 MG TABLET.DR PO SCH ×2 (06:35→17:15)
[2019-03-08] MEDS: FUROSEMIDE 20 MG TABLET PO SCH ×2 (06:35→14:11)
[2019-03-08] MEDS: FERROUS SULFATE 325 MG TABLET PO SCH ×2 (08:30→17:15)
[2019-03-08] MEDS: CITALOPRAM HYDROBROMIDE 20 MG TABLET PO SCH (08:30)
[2019-03-08] MEDS: GABAPENTIN 100 MG CAPSULE PO SCH ×2 (08:30→20:58)
[2019-03-08] MEDS: FLUTICASONE/SALMETEROL 250-50 INHALER IH SCH ×2 (08:30→20:58)
[2019-03-08] MEDS: LISINOPRIL 20 MG TABLET PO SCH (08:31)
[2019-03-08] MEDS: METOPROLOL TARTRATE 25 MG TABLET PO SCH ×2 (08:31→20:58)
[2019-03-08] MEDS: CALCIUM/VIT D 500MG/200 UNIT TABLET PO SCH (08:31)
[2019-03-08] MEDS: oxyCODONE/ACETAMINOPHEN 5/325 TABLET PO PRN ×2 (08:31→20:58)
[2019-03-08] MEDS: POTASSIUM CHLORIDE 20 MEQ TABLET.ER PO SCH ×2 (08:31→20:58)
[2019-03-08] MEDS: POLYETHYLENE GLYCOL 3350 17 GM POWD.PACK PO SCH (11:30)
[2019-03-08] MEDS: RIVAROXABAN 15 MG TABLET PO SCH (17:15)
[2019-03-09] MEDS: PANTOPRAZOLE SODIUM 40 MG TABLET.DR PO SCH ×2 (06:30→17:45)
[2019-03-09] MEDS: FUROSEMIDE 20 MG TABLET PO SCH ×2 (06:30→13:42)
[2019-03-09] MEDS: IPRATROPIUM/ALBUTEROL SULFATE 3 ML AMPUL.NEB NEB SCH ×3 (06:31→17:45)
[2019-03-09 07:06] LABS: eGFR (Non-African) > 60
[2019-03-09] MEDS: FLUTICASONE/SALMETEROL 250-50 INHALER IH SCH ×2 (08:55→20:30)
[2019-03-09] MEDS: FERROUS SULFATE 325 MG TABLET PO SCH ×2 (08:55→17:44)
[2019-03-09] MEDS: POTASSIUM CHLORIDE 20 MEQ TABLET.ER PO SCH ×2 (08:56→20:31)
[2019-03-09] MEDS: CITALOPRAM HYDROBROMIDE 20 MG TABLET PO SCH (08:56)
[2019-03-09] MEDS: CALCIUM/VIT D 500MG/200 UNIT TABLET PO SCH (08:56)
[2019-03-09] MEDS: GABAPENTIN 100 MG CAPSULE PO SCH ×2 (08:56→20:31)
[2019-03-09] MEDS: METOPROLOL TARTRATE 25 MG TABLET PO SCH ×2 (08:57→20:31)
[2019-03-09] MEDS: LISINOPRIL 20 MG TABLET PO SCH (08:57)
[2019-03-09] MEDS: POLYETHYLENE GLYCOL 3350 17 GM POWD.PACK PO SCH (11:45)
[2019-03-09] MEDS: RIVAROXABAN 15 MG TABLET PO SCH (17:44)
[2019-03-09] MEDS: oxyCODONE/ACETAMINOPHEN 5/325 TABLET PO PRN (20:29)
[2019-03-10] MEDS: IPRATROPIUM/ALBUTEROL SULFATE 3 ML AMPUL.NEB NEB SCH ×5 (01:09→23:50)
[2019-03-10] MEDS: PANTOPRAZOLE SODIUM 40 MG TABLET.DR PO SCH ×2 (05:37→17:35)
[2019-03-10] MEDS: FUROSEMIDE 20 MG TABLET PO SCH ×2 (05:38→13:42)
[2019-03-10] MEDS: FERROUS SULFATE 325 MG TABLET PO SCH ×2 (09:00→17:35)
[2019-03-10] MEDS: FLUTICASONE/SALMETEROL 250-50 INHALER IH SCH ×2 (09:16→20:44)
[2019-03-10] MEDS: CITALOPRAM HYDROBROMIDE 20 MG TABLET PO SCH (09:16)
[2019-03-10] MEDS: POTASSIUM CHLORIDE 20 MEQ TABLET.ER PO SCH ×2 (09:16→20:45)
[2019-03-10] MEDS: METOPROLOL TARTRATE 25 MG TABLET PO SCH ×2 (09:17→20:45)
[2019-03-10] MEDS: LISINOPRIL 20 MG TABLET PO SCH (09:17)
[2019-03-10] MEDS: GABAPENTIN 100 MG CAPSULE PO SCH ×2 (09:18→20:45)
[2019-03-10] MEDS: CALCIUM/VIT D 500MG/200 UNIT TABLET PO SCH (09:19)
[2019-03-10] MEDS: oxyCODONE/ACETAMINOPHEN 5/325 TABLET PO PRN (11:45)
[2019-03-10] MEDS: POLYETHYLENE GLYCOL 3350 17 GM POWD.PACK PO SCH (11:45)
[2019-03-10] MEDS: RIVAROXABAN 15 MG TABLET PO SCH (17:35)
[2019-03-11] MEDS: PANTOPRAZOLE SODIUM 40 MG TABLET.DR PO SCH ×2 (06:00→17:32)
[2019-03-11] MEDS: FUROSEMIDE 20 MG TABLET PO SCH ×2 (06:00→12:44)
[2019-03-11] MEDS: IPRATROPIUM/ALBUTEROL SULFATE 3 ML AMPUL.NEB NEB SCH ×4 (06:05→23:53)
[2019-03-11] MEDS: oxyCODONE/ACETAMINOPHEN 5/325 TABLET PO PRN ×2 (08:19→20:48)
[2019-03-11] MEDS: METOPROLOL TARTRATE 25 MG TABLET PO SCH ×2 (08:19→20:48)
[2019-03-11] MEDS: LISINOPRIL 20 MG TABLET PO SCH (08:19)
[2019-03-11] MEDS: FERROUS SULFATE 325 MG TABLET PO SCH ×2 (08:19→17:32)
[2019-03-11] MEDS: CITALOPRAM HYDROBROMIDE 20 MG TABLET PO SCH (08:20)
[2019-03-11] MEDS: GABAPENTIN 100 MG CAPSULE PO SCH ×2 (08:20→20:48)
[2019-03-11] MEDS: CALCIUM/VIT D 500MG/200 UNIT TABLET PO SCH (08:20)
[2019-03-11] MEDS: POTASSIUM CHLORIDE 20 MEQ TABLET.ER PO SCH ×2 (08:20→20:48)
[2019-03-11] MEDS: FLUTICASONE/SALMETEROL 250-50 INHALER IH SCH ×2 (08:20→20:48)
[2019-03-11] MEDS: POLYETHYLENE GLYCOL 3350 17 GM POWD.PACK PO SCH (12:43)
[2019-03-11] MEDS: RIVAROXABAN 15 MG TABLET PO SCH (17:32)
[2019-03-12] MEDS: PANTOPRAZOLE SODIUM 40 MG TABLET.DR PO SCH (05:27)
[2019-03-12] MEDS: IPRATROPIUM/ALBUTEROL SULFATE 3 ML AMPUL.NEB NEB SCH (05:28)
[2019-03-12] MEDS: FUROSEMIDE 20 MG TABLET PO SCH (05:28)
[2019-03-12 09:01] VITALS: BP 106/59
[2019-03-12] MEDS: LISINOPRIL 20 MG TABLET PO SCH (09:19)
[2019-03-12] MEDS: CITALOPRAM HYDROBROMIDE 20 MG TABLET PO SCH (09:19)
[2019-03-12] MEDS: FERROUS SULFATE 325 MG TABLET PO SCH (09:19)
[2019-03-12] MEDS: CALCIUM/VIT D 500MG/200 UNIT TABLET PO SCH (09:19)
[2019-03-12] MEDS: METOPROLOL TARTRATE 25 MG TABLET PO SCH (09:19)
[2019-03-12] MEDS: POTASSIUM CHLORIDE 20 MEQ TABLET.ER PO SCH (09:19)
[2019-03-12] MEDS: GABAPENTIN 100 MG CAPSULE PO SCH (09:19)
[2019-03-12] MEDS: FLUTICASONE/SALMETEROL 250-50 INHALER IH SCH (09:22)
--- NOTE | 2019-03-12 09:55 | Discharge Summary ---
Discharge Summary - Discharge [facility] Admission Date: 03/06/19 Discharge Date: 03/12/19 Discharge To: Home Health History of Present Illness: Jewels was readmitted from after about a week there. In that time, she had an EGD, which showed erosive gastritis, as well as a colonoscopy which was unremarkable. She is able to do much more with ambulation. Her CHF is better compensated. It was noted that she had some cirrhosis on an u/s and she had a hepatitis panel done there, and it showed that she had antibodies to hepatitis C, however I don't see that a follow up viral load was performed. She is here for therapy with a plan to go home on discharge. Condition at Discharge: Stable Home Medications: Ambulatory Orders Medication Instructions Recorded Albuterol Sulfate [Proair HFA] 2 inh IH Q6H PRN 03/05/19 Calcium Carbonate/Vitamin D3 1 each PO DAILY 03/05/19 [Calcium 600-Vit D3 400 Tablet] Citalopram Hydrobromide 20 mg PO DAILY 03/05/19 [Citalopram HBr] Ferrous Sulfate [Iron] 325 mg PO BS 03/05/19 Fluticasone Propion/Salmeterol 1 each INH BID 03/05/19 [Advair 250-50 Diskus] Furosemide [Lasix] 20 mg PO 714 03/05/19 Gabapentin [Neurontin] 100 mg PO BID 03/05/19 Ipratropium/Albuterol Sulfate 3 ml NEB Q6 03/05/19 [Duoneb] Lisinopril [Prinivil] 20 mg PO QD 03/05/19 Metoprolol Tartrate [Lopressor] 25 mg PO BID 03/05/19 Pantoprazole Sodium [Protonix] 40 mg PO 717 03/05/19 Potassium Chloride [Klor-Con 10] 10 meq PO BID 03/05/19 Rivaroxaban [Xarelto] 15 mg PO 1700 03/05/19 oxyCODONE HCL/ACETAMINOPHEN 1 each PO BID PRN 03/05/19 [Percocet 5-325 mg Tablet] Consultations this Visit: Other (PT/OT) Procedures this Visit: None Allergies/Adverse Reactions: Allergies Allergy/AdvReac Type Severity Reaction Status Date / Time ciprofloxacin AdvReac Severe Shakiness Verified 10/31/18 15:35 Discharge Summary: She is discharged to home with continuation of all of her medications. Follow up with Dr. Crawford in one week. Hospital Course: Patient tolerated therapy well. Her blood pressure was somewhat low and we held several doses her metoprolol and lisinopril. This was able to be restarted and she tolerated it well.
== END 2019-03-12 11:05 | disposition home or self-care (01) | DRG 291 ==
LOC: SOUTH 14:15
PROVIDERS: ADMIT Family Medicine; ATTEND Family Medicine
DX: I11.0 Hypertensive heart disease with heart failure (principal); K29.01 Acute gastritis with bleeding; I50.43 Acute on chronic combined systolic (congestive) and diastolic (congestive) heart failure; D64.9 Anemia, unspecified
CPT/HCPCS: 36415; 80053; 85025; 85027; 86803; 94640; 94760; A9270; A9270-GY